=== PATIENT | female | born 1940 | race Caucasian/White ===

== ENCOUNTER 2022-06-24 23:01 | Inpatient (IN) | payer MEDICARE, SELFPAY ==
[2022-06-24 23:06] VITALS: BP 191/93; PULSE 73; RESP 16; TEMP 37; O2SAT 98; BMI 21.9
--- NOTE | 2022-06-24 23:16 | CRLHL7_ITS ---
For Patients: As a result of the Century Cures Act, medical imaging exams and procedure reports are released immediately into your electronic medical record. You may view this report before your referring provider. If you have questions, please contact your health care provider. INDICATION: Arm chest pain TECHNIQUE: Chest radiograph 2 views COMPARISON: 05/21/2019 FINDINGS: Mediastinum: The mediastinum is normal in appearance. The heart silhouette is normal in size and morphology. The patient is status post coronary artery bypass surgery. Lung: Both lungs are unremarkable in appearance. Bilateral prominent nipple silhouettes are present. No sign of pleural effusion seen. No pneumothorax is identified. Bone and Soft tissue: Unremarkable for age. IMPRESSION: 1. No acute cardiopulmonary disease is seen. Dictated by: Miguel Carrington MD @ 06/24/2022 23:57:07 (Electronically Signed)
[2022-06-24 23:23] LABS: Troponin, Point-of-Care* 0.03 ng/ml (0.01-0.04)
[2022-06-24 23:32] LABS: Basophils Absolute Auto 0.04 K/uL (0.00-0.30); Basophils Percent Auto 0.6 % (0.0-3.0); Eosinophils Absolute Auto 0.45 K/uL (0.00-0.50); Eosinophils Percent Auto 6.2 % (0.0-7.0); Hematocrit 41.4 % (33.0-51.0); Hemoglobin* 13.4 gm/dL (12.0-16.0); Immature Granulocytes Abs Auto 0.01 K/uL (0.00-0.30); Lymphocytes Absolute Auto 3.18 K/uL (0.90-2.90); Lymphocytes Percent Auto 43.8 % (20-44); Mean Corpuscular HGB Conc 32 gm/dL (32-36); Mean Corpuscular Hemoglobin 31 pg (26-34); Mean Corpuscular Volume 96 fL (80-100); Monocytes Percent Auto 11.8 % (0.0-11.0); Neutrophils Percent Auto 37.5 % (42.0-72.0); Platelet Count* 198 K/uL (140-440); Red Blood Count 4.32 m/uL (4.00-5.20); White Blood Count* 7.26 K/uL (4.50-11.00)
[2022-06-24 23:33] LABS: Slide Review Reflex No
[2022-06-24 23:36] LABS: Chloride* 108 mmol/L (96-114); Sodium* 140 mmol/L (135-149)
[2022-06-24 23:38] LABS: Creatinine* 0.8 mg/dL (0.5-1.5); Estimated Glomerular Filt Rate 74 ml/min; INR 0.89 (0.91-1.10); Prothrombin Time 12.5 Seconds
[2022-06-24 23:39] LABS: Blood Urea Nitrogen* 22 mg/dL (7-30); Calcium* 9.6 mg/dL (8.4-10.6); Carbon Dioxide* 27 mmol/L (20-32); Glucose* 108 mg/dL (60-115); Partial Thromboplastin Time* 31 Seconds (23-33)
[2022-06-24 23:41] LABS: D Dimer Quantitative* 0.66 ug/ml (0.00-0.50)
[2022-06-24 23:48] LABS: NT Pro B Type NatriureticPept* 174 PG/mL (0-450)
[2022-06-25] VITALS (20 sets, daily range): BP systolic 133–185; BP diastolic 65–91; PULSE 56–73; RESP 16–20; TEMP 36.5–36.8; O2SAT 94–100; BMI 21.8
[2022-06-25 00:06] LABS: Troponin I* 0.04 ng/mL (0.01-0.04)
[2022-06-25] MEDS: NITROGLYCERIN 0.4 MG TAB.SUBL SUBLINGUAL (00:08)
[2022-06-25 00:18] LABS: SARS PCR* Negative SARS-CoV-2 (Negative)
--- NOTE | 2022-06-25 00:44 | ED_ITS ---
HPI - Chest Pain General Date Seen: 06/24/22 Chief Complaint: Extremity Pain/Injury, Upper Stated Complaint: possible heart attach Time Seen by Provider: 06/24/22 23:04 Source: patient and family Mode of arrival: ambulatory Limitations: no limitations History of Present Illness HPI narrative: Patient is 81-year-old female presents for evaluation of left arm pain. She says is characteristic of her previous issue that she had with her myocardial infarction and also post bypass surgery. She has had this now for approximately 6 weeks, whenever she walks on the treadmill the left arm pain worsens. She does not have any shortness of breath or any chest pain or any neck discomfort there is no other radiation. She has not taken any nitroglycerin as continue to take her aspirin. She underwent 3 vessel bypass of her coronary arteries I believe in 2000. Denies any nausea vomiting chest pain shortness of breath or leg swelling. She has however have decreased exercise tolerance he is only able to walk 6 minutes on her treadmill. MD complaint: other Pertinent past history: coronary artery disease, prior AR and CABG Onset (ago): week(s) Timing of current episode: constant Prior episodes: Yes Onset: during rest Pain radiation: left arm Severity: moderate Relieving factors: nothing Exacerbating factors: nothing Context: recent illness Related Data On Oral Contraceptives: No Home Medications Medication Instructions Recorded Confirmed alendronate 70 mg tablet mg PO 06/24/22 aspirin 325 mg capsule 325 mg PO Q4-6H PRN 06/24/22 06/24/22 aspirin 81 mg capsule 81 mg PO DAILY 06/24/22 06/24/22 atorvastatin 80 mg tablet mg 06/24/22 isosorbide mononitrate 120 mg mg PO 06/24/22 tablet,extended release 24 hr lisinopril 20 mg tablet mg 06/24/22 metoprolol succinate 25 mg mg PO 06/24/22 tablet,extended release 24 hr omeprazole 20 mg capsule,delayed mg 06/24/22 release Allergies Allergy/AdvReac Type Severity Reaction Status Date / Time No Known Drug Allergies Allergy Verified 06/24/22 23:14 Review of Systems Status of ROS Reports: 10 or more systems reviewed and unremarkable except as noted in History and below PFSH PFSH Social History Smoking Status: Never smoker How often do you have a drink containing alcohol: never AUDIT-C Alcohol total score: 0 Non-prescribed substance use: denies use Exam Narrative Exam Narrative: Patient appears to be in no apparent distress sitting in the room. Stable room 1. Pupils equal round react to light there is no scratch redness TMs normal oropharynx normal she is speaking to me normally. Her neck is supple full range of motion chest shows good air entry bilateral with no wheezing crackles noted scar from previous CABG is noted. Heart sounds no clicks murmurs or gallops abdomen soft there is no guarding approximately rashes she was all extremities independently well no evidence of any Const Vital Signs, click to edit/add: Vital Signs - 24 hr 06/24/22 23:06 06/25/22 00:00 06/25/22 00:10 Temperature 98.6 F Pulse Rate [Apical] 73 62 62 Respiratory Rate 16 16 18 Blood Pressure [Right Upper Arm] 191/93 H 166/91 H 174/91 H Pulse Oximetry 98 98 98 06/25/22 00:20 06/25/22 00:25 06/25/22 00:30 Temperature Pulse Rate [Apical] 68 68 62 Respiratory Rate 18 16 16 Blood Pressure [Right Upper Arm] 138/86 139/77 150/83 H Pulse Oximetry 98 100 100 Course Vital Signs Vital signs: Initial Vital Signs Temperature 98.6 F 06/24/22 23:06 Temperature Source Temporal Artery Scan 06/24/22 23:06 Pulse Rate 73 06/24/22 23:06 Respiratory Rate 16 06/24/22 23:06 Blood Pressure 191/93 H 06/24/22 23:06 Blood Pressure Mean 125 06/24/22 23:06 Blood Pressure Position Supine 06/24/22 23:06 Pulse Oximetry 98 06/24/22 23:06 Oxygen Delivery Method 06/24/22 23:06 Vital Signs Temperature 98.6 F 06/24/22 23:06 Pulse Rate 73 06/24/22 23:06 Respiratory Rate 16 06/24/22 23:06 Blood Pressure 191/93 H 06/24/22 23:06 Pulse Oximetry 98 06/24/22 23:06 Temperature 98.6 F 06/24/22 23:06 Pulse Rate 62 06/25/22 00:30 Respiratory Rate 16 06/25/22 00:30 Blood Pressure 150/83 H 06/25/22 00:30 Pulse Oximetry 100 06/25/22 00:30 MDM - Chest Pain MDM Narrative Medical decision making narrative: This is but I would describe his atypical chest pain, we will do workup for this. During the evaluation of this patient I considered multiple differential diagnosis is. The life-threatening differential diagnosis include coronary disease/AR, pulmonary embolism, pneumothorax, pneumonia, and aortic dissection. Other differential diagnosis included but were not limited to pericarditis, myocarditis, chest wall pain, GERD, esophageal rupture, rib fracture contusion, pleurisy, as well as other etiologies. I will sign over to my partner Dr. Livingston out for further disposition. Medical Records Data Attestation: I reviewed the patient's medical records. Lab Data Attestation: I reviewed the patient's lab results. Labs: Lab Results 06/24/22 06/24/22 06/24/22 Range/Units 23:11 23:11 23:11 WBC 7.26 (4.50-11.00) K/uL RBC 4.32 (4.00-5.20) m/uL Hgb 13.4 (12.0-16.0) gm/dL Hct 41.4 (33.0-51.0) % MCV 96 (80-100) fL MCH 31 (26-34) pg MCHC 32 (32-36) gm/dL RDW Coeff of Ian 14.0 (11.5-15.5) % Plt Count 198 (140-440) K/uL Neut % (Auto) 37.5 L (42.0-72.0) % Lymph % (Auto) 43.8 (20-44) % [place] % (Auto) 11.8 H (0.0-11.0) % Eos % (Auto) 6.2 (0.0-7.0) % Baso % (Auto) 0.6 (0.0-3.0) % Neut # (Auto) 2.70 (1.7-7.0) K/uL Lymph # (Auto) 3.18 H (0.90-2.90) K/uL [place] # (Auto) 0.90 (0.00-0.90) K/UL Eos # (Auto) 0.45 (0.00-0.50) K/uL Baso # (Auto) 0.04 (0.00-0.30) K/uL Abs Immat Gran (auto) 0.01 (0.00-0.30) K/uL INR 0.89 L (0.91-1.10) APTT 31 (23-33) Seconds D-Dimer Quant (PE/DVT) 0.66 H (0.00-0.50) ug/ml Sodium 140 (135-149) mmol/L Potassium 4.0 (3.6-5.1) mmol/L Chloride 108 (96-114) mmol/L Carbon Dioxide 27 (20-32) mmol/L BUN 22 (7-30) mg/dL Creatinine 0.8 (0.5-1.5) mg/dL Estimated Creat Clear 34.30 Estimated GFR 74 ml/min Glucose 108 (60-115) mg/dL Calcium 9.6 (8.4-10.6) mg/dL Troponin I (0.01-0.04) ng/mL NT-Pro-B Natriuret Pep (0-450) PG/mL SARS-CoV-2 (PCR) (Negative) POC Troponin I (0.01-0.04) ng/ml 06/24/22 06/24/22 06/24/22 Range/Units 23:11 23:11 23:11 WBC (4.50-11.00) K/uL RBC (4.00-5.20) m/uL Hgb (12.0-16.0) gm/dL Hct (33.0-51.0) % MCV (80-100) fL MCH (26-34) pg MCHC (32-36) gm/dL RDW Coeff of Ian (11.5-15.5) % Plt Count (140-440) K/uL Neut % (Auto) (42.0-72.0) % Lymph % (Auto) (20-44) % [place] % (Auto) (0.0-11.0) % Eos % (Auto) (0.0-7.0) % Baso % (Auto) (0.0-3.0) % Neut # (Auto) (1.7-7.0) K/uL Lymph # (Auto) (0.90-2.90) K/uL [place] # (Auto) (0.00-0.90) K/UL Eos # (Auto) (0.00-0.50) K/uL Baso # (Auto) (0.00-0.30) K/uL Abs Immat Gran (auto) (0.00-0.30) K/uL INR (0.91-1.10) APTT (23-33) Seconds D-Dimer Quant (PE/DVT) (0.00-0.50) ug/ml Sodium (135-149) mmol/L Potassium (3.6-5.1) mmol/L Chloride (96-114) mmol/L Carbon Dioxide (20-32) mmol/L BUN (7-30) mg/dL Creatinine (0.5-1.5) mg/dL Estimated Creat Clear Estimated GFR ml/min Glucose (60-115) mg/dL Calcium (8.4-10.6) mg/dL Troponin I 0.04 (0.01-0.04) ng/mL NT-Pro-B Natriuret Pep 174 (0-450) PG/mL SARS-CoV-2 (PCR) (Negative) POC Troponin I 0.03 (0.01-0.04) ng/ml 06/24/22 Range/Units 23:16 WBC (4.50-11.00) K/uL RBC (4.00-5.20) m/uL Hgb (12.0-16.0) gm/dL Hct (33.0-51.0) % MCV (80-100) fL MCH (26-34) pg MCHC (32-36) gm/dL RDW Coeff of Ian (11.5-15.5) % Plt Count (140-440) K/uL Neut % (Auto) (42.0-72.0) % Lymph % (Auto) (20-44) % [place] % (Auto) (0.0-11.0) % Eos % (Auto) (0.0-7.0) % Baso % (Auto) (0.0-3.0) % Neut # (Auto) (1.7-7.0) K/uL Lymph # (Auto) (0.90-2.90) K/uL [place] # (Auto) (0.00-0.90) K/UL Eos # (Auto) (0.00-0.50) K/uL Baso # (Auto) (0.00-0.30) K/uL Abs Immat Gran (auto) (0.00-0.30) K/uL INR (0.91-1.10) APTT (23-33) Seconds D-Dimer Quant (PE/DVT) (0.00-0.50) ug/ml Sodium (135-149) mmol/L Potassium (3.6-5.1) mmol/L Chloride (96-114) mmol/L Carbon Dioxide (20-32) mmol/L BUN (7-30) mg/dL Creatinine (0.5-1.5) mg/dL Estimated Creat Clear Estimated GFR ml/min Glucose (60-115) mg/dL Calcium (8.4-10.6) mg/dL Troponin I (0.01-0.04) ng/mL NT-Pro-B Natriuret Pep (0-450) PG/mL SARS-CoV-2 (PCR) Negative SARS-CoV-2 (Negative) POC Troponin I (0.01-0.04) ng/ml ECG Data Attestation: I personally reviewed and interpreted this ECG as follows: ECG interpretation date: 06/25/22 ECG interpretation time: 00:49 Ischemic changes: other (ST wave depression globally but worse inferior laterally. Bundle-branch block. Part of this is unchanged from previous EKGs.) Discharge Plan Discharge Prescriptions: No Action atorvastatin 80 mg tablet 0RF lisinopril 20 mg tablet 0RF alendronate 70 mg tablet PO 0RF isosorbide mononitrate 120 mg tablet extended release 24 hr PO 0RF omeprazole 20 mg capsule,delayed release(DR/EC) 0RF metoprolol succinate 25 mg tablet extended release 24 hr PO 0RF aspirin 81 mg capsule 81 mg PO DAILY 0RF aspirin 325 mg capsule 325 mg PO Q4-6H PRN0RF Follow Up/Referrals: Carmina Enriquez PA-C [Primary Care Provider] -
[2022-06-25 01:22] LABS: Troponin I* 0.08 ng/mL (0.01-0.04)
[2022-06-25] MEDS: HEPARIN 25,000 UNIT/500 ML BAG 13 UNIT IV (01:59)
[2022-06-25] MEDS: HEPARIN 5,000 UNIT/0.5 ML INJ 3300 UNIT IVP (02:00)
--- NOTE | 2022-06-25 02:38 | ED.NURSE ---
report to Seng CANALES on med surg, pt to be transported to 256
--- NOTE | 2022-06-25 03:37 | PM.IMCN1 ---
Date of Consult Consult date: 06/25/22 Primary Care Provider: Carmina Enriquez PA-C Consult Narrative Reason for consult: Admission support and crsoss coverage services. Narrative: [facility] CONSULTATION NOTE: [facility] contacted by the local/ER provider with a request for consultation for admission support and cross coverage services for this patient. Provider requesting [facility] Hospitalist Sevices: Dr. Gabi Viveros MD. Chief Complaint: Left arm discomfort and generalized weakness with exertion. Reason for Admission: Rule out ACS. HPI or ER Course: This patient is an 81-year-old lady with a history of coronary artery disease with past intervention who presented to the emergency department complaining of left arm pain which feels similar to when she a previous AR. She also has experienced progressive weakness with exertion in the past 6 weeks. She claims no chest pain, no shortness of breath, and no nausea. She states that her past history includes a myocardial infarction and three-vessel CABG in 2000. Aside from an elevated blood pressure, her vital signs were normal range on presentation. She was afebrile. Her bedside assessment was unremarkable. She appeared in no distress. Her lung exam was normal. There was no evidence of person angina after 2 doses of sublingual nitroglycerin were administered, and no signs of CHF were identified. The laboratory survey revealed a normal hemogram. Her blood chemistries were generally unremarkable. However, her troponin I levels were elevated: 0.04, and 0.08 on repeat assessment. A chest x-ray was negative for cardiomegaly, pulmonary vascular congestion, pulmonary edema, and acute alveolar infiltrates. An EKG showed a sinus rhythm with a right bundle branch block and ST segment depression in inferolateral leads. The case was reviewed with cardiology on-call for this facility. The living coach concurred with the ER provider's assessment that this was an acutely evolving coronary syndrome. IV heparin and as needed nitroglycerin was recommended. It was further recommended that the patient needed to be transferred to a facility with a higher level of care including interventional cardiology and cardiovascular surgery. At this point the local providers are attempting to find a facility at the level of care needed, however, bed space is at unavailable. Transfer will be made soon as possible when bed space opens up. Pertinent PMH: Discussed in the provider's admission note. History Reviewed In The Medical Record: Home Medications. Pertinent Social History. Recent OPD/ER Progress Notes. EXAM: Performed via an interactive video with the assistance of the bedside nurse. The Bedside RN is Seng. VS: T 98. P 62. RR 16. BP 150/83. SPO2 100% on room air. GENERAL APPEARANCE: The patient is awake, alert and oriented x4. She does not appear distressed. She is able to follow commands and carry on a conversation. She claims no pain at this time. HEENT: Facial features are symmetric. Pupils are equally round and reactive to light. Mucous membranes are moist and pink. Oropharynx is clear. NECK: Supple. No JVD is seen. CHEST: Atraumatic. Normal respiratory movement seen. LUNGS: CTA, bilaterally. Breath sounds are heard in all lung block. HEART: Regular rhythm and rate. No murmurs are heard. No rub is heard. S2 is widely split. ABDOMEN: Bowel sounds are present. Soft. Nontender. EXTREMITIES: Trace edema is noted in the distal lower legs, bilaterally. Pulses are palpable in 4 extremities. SKIN: No discoloration seen. No rashes or primary skin lesions seen. NEUROLOGICAL: Alert and oriented x4. Cranial nerves II through XII are functioning normally. There is normal volitional movement in all 4 extremities without signs of lateralized weakness. No tremors are seen. No myoclonus is seen. LAB Data: Reviewed. EKG: Reviewed RADIOLOGY REPORTS: Reviewed. ASSESSMENT: 1. Acute coronary syndrome. 2. Atypical angina with primarily left arm pain, and generalized weakness with exertion. The patient's left arm pain was resolved with 2 doses of sublingual nitroglycerin. 3. History of coronary artery disease with a prior AR and past intervention (three-vessel CABG) 4. Other PMH: HTN; GERD; WILLA. PLANS: [facility] during this [facility]. 2. Continue heparin infusion. 3. Cardiology consultation soon as possible. 4. As needed sublingual nitroglycerin as needed for angina or anginal equivalent symptoms. 5. N.p.o. status until seen by cardiology. RECOMMENDATIONS: 1. Nitroglycerin infusion if the patient redevelops chest pain with persistence. 2. Continue beta-ricco therapy. 3. Antiplatelet therapy as recommended by cardiology I have reviewed the case in consultation. Information has been gathered from conversations with the local provider, nelson review of the patient's chart, and by a patient evaluation. Based on the current information and the patient?s current medical condition, I certify the patient meets criteria for: [XXX] Acute inpatient status with the expectation of a patient stay of more than 2 midnights, but less than 96 hrs. [ ] Swing bed. [ ] Observation status with an expected stay of less than 2 midnights. Thank you for including [facility] Hospitalist in the patient's care. This service is available for further assistance as requested by your care team by calling [phone]. [facility] Medical History (Updated 06/25/22 @ 03:18 by Gabi Baker MD) Acute myocardial infarction GERD (gastroesophageal reflux disease) Hypertension Osteoarthritis Surgical History (Updated 06/25/22 @ 00:52 by Gabi Baker MD) History of hysterectomy Hx of CABG Tubal ligation status Social History Highest level of school completed/degree received: high school graduate Smoking Status: Never smoker Second hand tobacco smoke exposure: No How often do you have a drink containing alcohol: never AUDIT-C Alcohol total score: 0 Non-prescribed substance use: denies use Caffeine: Yes (2 Cups Daily) service: No Meds Home Medications and Allergies Home Medications Medication Instructions Recorded Confirmed Type alendronate 70 mg tablet mg PO 06/24/22 History aspirin 325 mg capsule 325 mg PO Q4-6H PRN 06/24/22 06/24/22 History aspirin 81 mg capsule 81 mg PO DAILY 06/24/22 06/24/22 History atorvastatin 80 mg tablet mg 06/24/22 History isosorbide mononitrate 120 mg mg PO 06/24/22 History tablet,extended release 24 hr lisinopril 20 mg tablet mg 06/24/22 History metoprolol succinate 25 mg mg PO 06/24/22 History tablet,extended release 24 hr omeprazole 20 mg capsule,delayed mg 06/24/22 History release Allergies Allergy/AdvReac Type Severity Reaction Status Date / Time No Known Drug Allergies Allergy Verified 06/24/22 23:14 Exam Const: Vital Signs, click to edit/add: Vital Signs - 24 hr 06/24/22 23:06 06/25/22 00:00 06/25/22 00:10 Temperature 98.6 F Pulse Rate [Apical ] 73 62 62 Respiratory Rate 16 16 18 Blood Pressure [Ri ght Upper Arm] 191/93 H 166/91 H 174/91 H Pulse Oximetry 98 98 98 06/25/22 00:20 06/25/22 00:25 06/25/22 00:30 Temperature Pulse Rate [Apical ] 68 68 62 Respiratory Rate 18 16 16 Blood Pressure [Ri ght Upper Arm] 138/86 139/77 150/83 H Pulse Oximetry 98 100 100 06/25/22 01:00 06/25/22 01:30 06/25/22 02:00 Temperature Pulse Rate [Apical ] 64 65 71 Respiratory Rate 16 16 16 Blood Pressure [Ri ght Upper Arm] 159/79 H 175/74 H 185/80 H Pulse Oximetry 100 98 98 06/25/22 02:30 Temperature Pulse Rate [Apical ] 66 Respiratory Rate 16 Blood Pressure [Ri ght Upper Arm] 178/89 H Pulse Oximetry 98 Labs Labs: Short CBC 06/24/22 Range/Units 23:11 WBC 7.26 (4.50-11.00) K/uL Hgb 13.4 (12.0-16.0) gm/dL Hct 41.4 (33.0-51.0) % Plt Count 198 (140-440) K/uL BMP 06/24/22 23:11 Sodium 140 Potassium 4.0 Chloride 108 Carbon Dioxide 27 BUN 22 Creatinine 0.8 Glucose 108 Calcium 9.6 Cardiac Enzymes 06/24/22 06/25/22 Range/Units 23:11 00:40 Troponin I 0.04 0.08 H* (0.01-0.04) ng/mL Assessment and Plan Assessment and plan (1) Angina pectoris, unstable: Status: Acute (2) Elevated troponin: Status: Acute Plan See Above..
--- NOTE | 2022-06-25 04:36 | PC.NURSE ---
Admitted to room 256 at 0245. VSS RA. Denies pain. Tele SB. Up ad elvi rob well. Ind w/cares. NPO.
[2022-06-25 08:24] LABS: HCO3 VBG 28 mmol/L (21-28); Lactate* 1.1 mmol/L (0.5-1.9); PCO2 VBG 47 mmHG (40-50); pH VBG 7.387 (7.32-7.43)
[2022-06-25 08:28] LABS: Hematocrit 43.7 % (33.0-51.0); Hemoglobin* 14.2 gm/dL (12.0-16.0); Mean Corpuscular HGB Conc 33 gm/dL (32-36); Mean Corpuscular Hemoglobin 31 pg (26-34); Mean Corpuscular Volume 96 fL (80-100); Platelet Count* 186 K/uL (140-440); Red Blood Count 4.57 m/uL (4.00-5.20); White Blood Count* 6.89 K/uL (4.50-11.00)
[2022-06-25 08:33] LABS: Slide Review Reflex No
[2022-06-25 08:47] LABS: INR 0.97 (0.91-1.10); Prothrombin Time 13.3 Seconds
[2022-06-25 08:50] LABS: D Dimer Quantitative* 0.63 ug/ml (0.00-0.50)
[2022-06-25 08:57] LABS: Chloride* 111 mmol/L (96-114); Potassium* 4.3 mmol/L (3.6-5.1); Sodium* 143 mmol/L (135-149)
[2022-06-25 08:59] LABS: Creatinine* 0.7 mg/dL (0.5-1.5); Estimated Glomerular Filt Rate 86 ml/min
[2022-06-25 09:00] LABS: Blood Urea Nitrogen* 15 mg/dL (7-30); Carbon Dioxide* 27 mmol/L (20-32); Glucose* 98 mg/dL (60-115)
[2022-06-25 09:01] LABS: Calcium* 9.6 mg/dL (8.4-10.6)
[2022-06-25 09:08] LABS: NT Pro B Type NatriureticPept* 453 PG/mL (0-450)
[2022-06-25 09:13] LABS: C Reactive Protein* < 0.5 mg/dL (0.5-1.0); Troponin I* 0.46 ng/mL (0.01-0.04)
--- NOTE | 2022-06-25 09:21 | PC.NURSE ---
LAB CALLED WITH CRITICAL TROPONIN 0.46. DR. GILMORE AWARE.
--- NOTE | 2022-06-25 09:25 | PC.NURSE ---
PTT 167 per Sandra in Lab
[2022-06-25 09:27] LABS: Partial Thromboplastin Time* 167 Seconds (23-33)
--- NOTE | 2022-06-25 13:26 | PC.NURSE ---
Pt trop increased to 0.46, Dr. Lindsay aware. [place] [facility], [place] [facility] [place] others on [place] list. Bed in available at [facility] on , [place], [place]. Report called to Julia at [facility] at [phone]. Pt is going to Bed 206 on telemetry unit. Awaiting EMS transport at 1330. Pt is transferring for [facility] needs a lab engineer per cardiology according to Dr. Lindsay.
--- NOTE | 2022-06-25 14:47 | PC.NURSE ---
Called [facility] to inform them of pt leaving [place] about [address] Pt will need PTT at admission. Message given to Brynn.
--- NOTE | 2022-06-25 17:59 | P.IMHP_ITS ---
Hospitalist- H&P: HPI History of Present Illness Date Seen: 06/25/22 Chief complaint: possible heart attach Narrative: ADMISSION HISTORY AND PHYSICAL - HOSPITALIST -WITH SUBSEQUENT TRANSFER TO TERTIARY CARE FACILITY SEVERAL HOURS LATER CHIEF COMPLAINT: Left arm pain HPI: This is an 81-year-old with known coronary artery disease. This includes known right bundle branch block, 3 vessel CABG in 1989, PTCA in 1999 and 2010. She has been doing fairly well over the last several years. She was in her usual state of health, living independently and walking daily until the last several weeks. She is noted with her walk that she is getting progressive worsening of a left arm pain. It became in the last couple of weeks more acute and she has been less active and ability to walk has decreased. She did not connect this to angina. She thought she had arthritis or a clogged vein in her arm. In the ED she presented with this left arm pain. There was a mild bump in her troponin and more significantly noted ST depression in the lateral leads with her known right bundle branch block. Non-STEMI was diagnosed and she was supposed to transfer but there were no beds available. She was admitted to our floor for further management. [facility] Medical History?(Updated 06/25/22 @ 03:18 by Gabi Baker MD) Coronary artery disease, status post PTCA and 3 vessel CABG over the last 30 years Acute myocardial infarction 2010 GERD (gastroesophageal reflux disease) Hypertension Osteoarthritis Surgical History?(Updated 06/25/22 @ 00:52 by Gabi Baker MD) History of hysterectomy Hx of CABG Tubal ligation status Social History? Highest level of school completed/degree received:? high school graduate Smoking Status:? Never smoker Second hand tobacco smoke exposure:? No How often do you have a drink containing alcohol:? never AUDIT-C Alcohol total score:? 0 Non-prescribed substance use:? denies use Caffeine:? Yes (2 Cups Daily) service:? No Meds Home Medications and Allergies Home Medications ?Medication ?Instructions ?Recorded ?Confirmed ?Type alendronate 70 mg tablet mg PO 06/24/22 ? History aspirin 325 mg capsule 325 mg PO Q4-6H PRN 06/24/22 06/24/22 History aspirin 81 mg capsule 81 mg PO DAILY 06/24/22 06/24/22 History atorvastatin 80 mg tablet mg 06/24/22 ? History isosorbide mononitrate 120 mg mg PO 06/24/22 ? History tablet,extended release 24 hr ? lisinopril 20 mg tablet mg 06/24/22 ? History metoprolol succinate 25 mg mg PO 06/24/22 ? History tablet,extended release 24 hr ? omeprazole 20 mg capsule,delayed mg 06/24/22 ? History release ? FAMILY HISTORY: REVIEWED IN EMR HABITS: As above SOCIAL HISTORY: Lives alone, INVESTIGATIONS: LABS/MICRO/ECG/IMAGING Troponin serially was elevated: 0.04, 0.08, 0.48 Heparin drip per protocol was initiated Sublingual nitroglycerin given x1 Morphine given in the ED REVIEW OF SYSTEMS: 12-POINT ROS COMPLETED WITH PATIENT AND NEGATIVE UNLESS OTHERWISE STATED IN HPI OR BELOW. PHYSICAL EXAM: CODE STATUS: CONSTITUTIONAL: CONVERSIVE, GOOD HISTORIAN. A/O. KNOWS SETTING AND CONTEXT. VITAL SIGNS: SEE RECORD. HEENT: NORMOCEPHALIC, ATRAUMATIC. PERRL, EOMI, CONJUNCTIVAE PINK, NO SCLERAL ICTERUS. EARS AND NOSE EXTERNALLY NORMAL. PHARYNX NORMAL. NECK: NO JVD. NO CAROTID BRUIT, NO THYROMEGALY, NO ADENOPATHY. CHEST: CLEAR TO AUSCULTATION BILATERALLY HEART: S1 AND S2 NORMAL. NO HARSH MURMURS. EDEMA negligible MUSCULOSKELETAL: NO GROSS JOINT DEFORMITY OR SWELLING. NEURO: CRANIAL NERVES INTACT. GROSSLY INTACT. NO ASYMMETRIC FINDINGS. SKIN: NO RASHES, PETECHIAE, CONCERNING CHANGES PSYCHIATRIC: Euthymic ADMIT DVT: Heparin drip GI: NPO TIME SPENT: 70 MINUTES EXAMINING PATIENT, CONFERRING WITH FAMILY AND PATIENT, CARE STAFF, DEVELOPING CARE PLAN - discussing case with several cardiologists the area. Ultimately Dr. White with [facility] accepted her transferred here on 06/25 at approximately 1:30 p.m. [facility] Medical History (Updated 06/25/22 @ 18:06 by Radha Lindsay MD) Acute myocardial infarction GERD (gastroesophageal reflux disease) Hypertension Osteoarthritis Surgical History (Updated 06/25/22 @ 00:52 by Gabi Baker MD) History of hysterectomy Hx of CABG Tubal ligation status Social History Highest level of school completed/degree received: high school graduate Smoking Status: Never smoker Second hand tobacco smoke exposure: No How often do you have a drink containing alcohol: never AUDIT-C Alcohol total score: 0 Non-prescribed substance use: denies use Caffeine: Yes (2 Cups Daily) service: No Meds Home Medications and Allergies Home Medications Medication Instructions Recorded Confirmed Type alendronate 70 mg tablet 70 mg PO Q7D 06/24/22 06/25/22 History aspirin 325 mg capsule 325 mg PO Q4-6H PRN 06/24/22 06/24/22 History aspirin 81 mg capsule 81 mg PO DAILY 06/24/22 06/24/22 History atorvastatin 80 mg tablet 80 mg PO HS 06/24/22 06/25/22 History isosorbide mononitrate 120 mg 120 mg PO DAILY 06/24/22 06/25/22 History tablet,extended release 24 hr lisinopril 20 mg tablet 20 mg PO DAILY 06/24/22 06/25/22 History metoprolol succinate 25 mg 25 mg PO DAILY 06/24/22 06/25/22 History tablet,extended release 24 hr omeprazole 20 mg capsule,delayed 20 mg PO DAILY 06/24/22 06/25/22 History release Allergies Allergy/AdvReac Type Severity Reaction Status Date / Time No Known Drug Allergies Allergy Verified 06/24/22 23:14 Exam Const: Vital Signs, click to edit/add: Vital Signs - 24 hr 06/24/22 23:06 06/25/22 00:00 06/25/22 00:10 Temperature 98.6 F Pulse Rate Pulse Rate [Apical ] 73 62 62 Pulse Rate [Left R adial] Respiratory Rate 16 16 18 Blood Pressure [Le ft Arm] Blood Pressure [Ri ght Upper Arm] 191/93 H 166/91 H 174/91 H Pulse Oximetry 98 98 98 06/25/22 00:20 06/25/22 00:25 06/25/22 00:30 Temperature Pulse Rate Pulse Rate [Apical ] 68 68 62 Pulse Rate [Left R adial] Respiratory Rate 18 16 16 Blood Pressure [Le ft Arm] Blood Pressure [Ri ght Upper Arm] 138/86 139/77 150/83 H Pulse Oximetry 98 100 100 06/25/22 01:00 06/25/22 01:30 06/25/22 02:00 Temperature Pulse Rate Pulse Rate [Apical ] 64 65 71 Pulse Rate [Left R adial] Respiratory Rate 16 16 16 Blood Pressure [Le ft Arm] Blood Pressure [Ri ght Upper Arm] 159/79 H 175/74 H 185/80 H Pulse Oximetry 100 98 98 06/25/22 02:30 06/25/22 03:30 06/25/22 03:40 Temperature Pulse Rate Pulse Rate [Apical ] 66 Pulse Rate [Left R adial] 64 Respiratory Rate 16 16 Blood Pressure [Le ft Arm] 170/78 H Blood Pressure [Ri ght Upper Arm] 178/89 H Pulse Oximetry 98 97 98 06/25/22 04:13 06/25/22 04:15 06/25/22 05:15 Temperature Pulse Rate 63 Pulse Rate [Apical ] Pulse Rate [Left R adial] 62 59 L Respiratory Rate Blood Pressure [Le ft Arm] 144/68 H 133/65 Blood Pressure [Ri ght Upper Arm] Pulse Oximetry 94 06/25/22 06:32 06/25/22 10:26 06/25/22 10:27 Temperature 97.8 F Pulse Rate Pulse Rate [Apical ] Pulse Rate [Left R adial] 62 58 L 58 L Respiratory Rate 18 18 Blood Pressure [Le ft Arm] 147/67 H 145/70 H Blood Pressure [Ri ght Upper Arm] Pulse Oximetry 97 97 06/25/22 10:51 06/25/22 13:06 06/25/22 13:08 Temperature 98.2 F 97.7 F Pulse Rate 73 Pulse Rate [Apical ] Pulse Rate [Left R adial] 56 L 60 Respiratory Rate 20 20 Blood Pressure [Le ft Arm] 156/73 H 140/84 H Blood Pressure [Ri ght Upper Arm] Pulse Oximetry 98 94 Hospitalist - H&P: Result Labs Labs: Short CBC 06/24/22 06/25/22 Range/Units 23:11 08:11 WBC 7.26 6.89 (4.50-11.00) K/uL Hgb 13.4 14.2 (12.0-16.0) gm/dL Hct 41.4 43.7 (33.0-51.0) % Plt Count 198 186 (140-440) K/uL BMP 06/24/22 06/25/22 23:11 08:11 Sodium 140 143 Potassium 4.0 4.3 Chloride 108 111 Carbon Dioxide BUN 22 15 Creatinine 0.8 0.7 Glucose 108 98 Calcium 9.6 9.6 Cardiac Enzymes 06/24/22 06/25/22 06/25/22 Range/Units 23:11 00:40 08:11 Troponin I 0.04 0.08 H* 0.46 H* (0.01-0.04) ng/mL Assessment and Plan Assessment and plan (1) Non-STEMI (non-ST elevated myocardial infarction): Status: Acute Assessment and Plan: Patient was on our service from early hours of 06/25 daily afternoon of 06/25. I maintained her on a heparin drip. She needed no further nitroglycerin after the ER dose. She is pain-free. Her ST depression had resolved. I did not exercise her. I did not give her Plavix. Continued her aspirin. She was transferred by EMS to [place] in the afternoon.
== END 2022-06-25 14:20 | disposition other institution (70) | DRG 282 ==
LOC: ED 06-25 00:53 → MEDSURG 06-25 02:47
PROVIDERS: Family Medicine; Admitting Provider Family Medicine; Emergency Provider Family Medicine; PCP Physician Assistant Medical; Visit Provider Family Medicine
DX: I21.4 Non-ST elevation (NSTEMI) myocardial infarction (principal); I25.110 Atherosclerotic heart disease of native coronary artery with unstable angina pectoris; I10 Essential (primary) hypertension; K21.9 Gastro-esophageal reflux disease without esophagitis; Z95.1 Presence of aortocoronary bypass graft; G47.33 Obstructive sleep apnea (adult) (pediatric); I45.10 Unspecified right bundle-branch block; I25.2 Old myocardial infarction
CPT/HCPCS: 36415; 71046; 80048; 82803; 83605; 83880; 84443; 84484; 85025; 85027; 85379; 85610; 85730; 86140; 87502; 87634; 87635; 93005; 99284; 99285; A9270; J1644

== ENCOUNTER 2022-06-25 13:54 | Outpatient (CLI) | payer MEDICARE, SELFPAY | END 2022-06-25 13:55 | disposition home or self-care (01) | LOC: AMB 07-15 12:01 | PROVIDERS: PCP Physician Assistant Medical; Visit Provider Family Medicine | DX: I21.4 Non-ST elevation (NSTEMI) myocardial infarction (principal) | CPT/HCPCS: A0425; A0434 ==

== ENCOUNTER 2022-11-17 19:28 | Observation (INO) | payer MEDICARE, SELFPAY ==
[2022-11-17 19:45] VITALS: BP 103/47; PULSE 67; RESP 16; TEMP 36.3; O2SAT 96; BMI 21.7
--- NOTE | 2022-11-17 19:59 | CRLHL7_ITS ---
For Patients: As a result of the Century Cures Act, medical imaging exams and procedure reports are released immediately into your electronic medical record. You may view this report before your referring provider. If you have questions, please contact your health care provider. Indication: Fall, left hip pain Technique: Three views Comparison: None Findings: Bones: Fractures of left superior inferior pubic rami with comminution of the inferior pubic ramus. Left superior pubic ramus is displaced 3 millimeters. Additional minimally displaced fracture through the medial margin of the acetabulum. Joint spaces: No dislocation. Soft tissues: Atherosclerosis. Dictated by Jose Rafael Uriarte MD @ 11/17/2022 8:34:51 PM (Electronically Signed)
--- NOTE | 2022-11-17 20:45 | ED.GENADULT ---
HPI - General Adult General Date Seen: 11/17/22 Chief complaint: Hip Injury/Pain Stated complaint: Fall Time Seen by Provider: 11/17/22 19:46 Source: patient History of Present Illness HPI narrative: Patient is an 82-year-old woman who had been standing on the steps at home, she thinks about 4 steps up, she turned too quickly and fell backward. She did hit her head, possibly. She does not remember the fall, but denies any headache, she is not sure whether she hit her head or not. She does not have neck or back pain. She complains primarily of pain in her left hip. There has not been any vomiting. She is not able to walk. She does not take any blood thinners. She does have a history of [place], she has had CABG remotely, and she says she has had 4 heart attacks. Related Data Home Medications Medication Instructions Recorded Confirmed alendronate 70 mg tablet 70 mg PO Q7D 06/24/22 11/17/22 aspirin 325 mg capsule 325 mg PO Q4-6H PRN 06/24/22 06/24/22 aspirin 81 mg capsule 81 mg PO DAILY 06/24/22 11/17/22 atorvastatin 80 mg tablet 80 mg PO HS 06/24/22 11/17/22 isosorbide mononitrate 120 mg 120 mg PO DAILY 06/24/22 11/17/22 tablet,extended release 24 hr lisinopril 20 mg tablet 20 mg PO DAILY 06/24/22 11/17/22 metoprolol succinate 25 mg 25 mg PO DAILY 06/24/22 11/17/22 tablet,extended release 24 hr clopidogrel 75 mg tablet 75 mg PO DAILY 11/17/22 11/17/22 famotidine 20 mg tablet 20 mg PO Q12H 11/17/22 11/17/22 Allergies Allergy/AdvReac Type Severity Reaction Status Date / Time No Known Drug Allergies Allergy Verified 11/17/22 19:49 Review of Systems Status of ROS: Reports: 10 or more systems reviewed and unremarkable except as noted in History and below [facility] Medical History Acute myocardial infarction GERD (gastroesophageal reflux disease) Hypertension Osteoarthritis Surgical History History of hysterectomy Hx of CABG Tubal ligation status Social History Highest level of school completed/degree received: high school graduate Smoking Status: Never smoker Second hand tobacco smoke exposure: No How often do you have a drink containing alcohol: never AUDIT-C Alcohol total score: 0 Non-prescribed substance use: denies use Caffeine: Yes (2 Cups Daily) service: No Exam Narrative: Exam Narrative: Vital signs as noted above. In general, an alert, well-appearing patient. Head: Normocephalic, atraumatic. Eyes: Pupils are equal reactive. Extraocular movements are full. Conjunctivae are normal. ENT: Mucous membranes are moist. Throat is normal. Neck: Supple without lymphadenopathy. Nontender to palpation. Heart: Regular rate and rhythm. No murmur or rub. Lungs: Clear bilaterally. No increased work of breathing, crackles or wheezes. Abdomen: Soft and nontender. No organomegaly. Extremities: Well perfused. No edema. No calf tenderness. Pulses intact. Pain in the hip area with any movement of the left leg. Neurologic: Patient is alert and oriented to person and place. Speech is fluent. Face is symmetric. Moves all extremities equally. Affect: Normal. Skin: Warm and dry. Well perfused. Const: Vital Signs, click to edit/add: Vital Signs - 24 hr 11/17/22 19:45 11/17/22 23:27 11/17/22 23:35 Temperature 97.3 F L Pulse Rate 81 Pulse Rate [Left P ulse Oximeter] 67 Respiratory Rate 16 16 Blood Pressure 101/69 Blood Pressure [Ri ght Upper Arm] 103/47 L Pulse Oximetry 96 99 93 Oxygen Delivery Me thod Room Air 11/18/22 00:01 11/18/22 02:01 11/18/22 04:02 Temperature Pulse Rate 85 81 72 Pulse Rate [Left P ulse Oximeter] Respiratory Rate 18 16 18 Blood Pressure 119/63 100/57 L 95/55 L Blood Pressure [Ri ght Upper Arm] Pulse Oximetry 91 92 91 Oxygen Delivery Me thod 11/18/22 06:01 Temperature Pulse Rate 71 Pulse Rate [Left P ulse Oximeter] Respiratory Rate 16 Blood Pressure 104/58 L Blood Pressure [Ri ght Upper Arm] Pulse Oximetry 93 Oxygen Delivery Me thod Documenting provider has reviewed patient's vital signs: yes Course Course Hospital Course: Following initial evaluation, an IV was placed, she was given 25 mcg of fentanyl. She had x-rays of the left hip and a CT scan of her head. X-rays of the left hip by my review show mildly displaced fractures of the superior and inferior rami as well as an acetabular fracture. Final radiology read is the same. I reviewed this with Dr. Bedoya who does not feel that CT scanning of the hip is needed. Recommends pain control. CT scan of the head by my review shows subdural hematoma on the left, measuring about 6 mm. Final radiology report is as follows: Brain parenchyma and extra-axial spaces: High-density tracking along the posterior falx and left tentorium is compatible with subdural hematoma and measures approximately 5 mm. Nonspecific low attenuation white matter changes consistent with chronic microvascular disease. No sign of mass or midline shift. Skull base and calvarium: The visualized paranasal sinuses and mastoid air cells demonstrate no acute or significant findings. The visualized orbits are grossly unremarkable. No skull fractures. IMPRESSION: Subdural hematoma tracking along the falx and left tentorium. Recommend short interval follow-up in 8-12 hours. In has remained neurologically stable. CT scan of the cervical spine is pending. She has not required further pain medication. I made an initial call to [facility], but they are currently not taking even adult trauma. I did talk with Dr. Mao, who was on-call for Neurosurgery at [facility]. He did not feel from a neuro surgical standpoint that she required transfer, he recommended a repeat CT of her head in 12 hours. Therefore, I think he can reasonably keep her here. We will manage her pelvis fractures with pain control and manage her subdural hematoma with neuro checks and repeat CT imaging. Her Plavix is being held. Currently there are no beds on the floor so she is boarding in the ER. I have ordered her home meds aside from her Plavix and her aspirin which we will hold for now. Baseline labs are pending at this time. Patient will be signed out to Dr. Marrero in the short term while awaiting bed placement. Vital Signs Vital signs: Initial Vital Signs Temperature 97.3 F L 11/17/22 19:45 Temperature Source Temporal Artery Scan 11/17/22 19:45 Pulse Rate 67 11/17/22 19:45 Respiratory Rate 16 11/17/22 19:45 Blood Pressure 103/47 L 11/17/22 19:45 Blood Pressure Mean 65 11/17/22 19:45 Blood Pressure Position Sitting 11/17/22 19:45 Pulse Oximetry 96 11/17/22 19:45 Oxygen Delivery Method 11/17/22 19:45 Vital Signs Temperature 97.3 F L 11/17/22 19:45 Pulse Rate 67 11/17/22 19:45 Respiratory Rate 16 11/17/22 19:45 Blood Pressure 103/47 L 11/17/22 19:45 Pulse Oximetry 96 11/17/22 19:45 Oxygen Delivery Method 11/17/22 19:45 Temperature 97.3 F L 11/17/22 19:45 Pulse Rate 71 11/18/22 06:01 Respiratory Rate 16 11/18/22 06:01 Blood Pressure 104/58 L 11/18/22 06:01 Pulse Oximetry 93 11/18/22 06:01 Oxygen Delivery Method 11/17/22 19:45 Medical Decision Making Lab Data Labs: Lab Results 11/17/22 11/17/22 11/17/22 Range/Units 22:33 22:38 22:38 WBC 12.65 H (4.50-11.00) K/uL RBC 3.83 L (4.00-5.20) m/uL Hgb 11.9 L (12.0-16.0) gm/dL Hct 36.5 (33.0-51.0) % MCV 95 (80-100) fL MCH 31 (26-34) pg MCHC 33 (32-36) gm/dL RDW Coeff of Ian 14.2 (11.5-15.5) % Plt Count 213 (140-440) K/uL Neut % (Auto) 83.7 H (42.0-72.0) % Lymph % (Auto) 7.8 L (20-44) % Taylor % (Auto) 6.6 (0.0-11.0) % Eos % (Auto) 0.7 (0.0-7.0) % Baso % (Auto) 0.3 (0.0-3.0) % Neut # (Auto) 10.60 H (1.7-7.0) K/uL Lymph # (Auto) 1.00 (0.90-2.90) K/uL Taylor # (Auto) 0.80 (0.00-0.90) K/UL Eos # (Auto) 0.10 (0.00-0.50) K/uL Baso # (Auto) 0.00 (0.00-0.30) K/uL INR 0.97 (0.91-1.10) APTT 31 (23-33) Seconds Sodium (135-149) mmol/L Potassium (3.6-5.1) mmol/L Chloride (96-114) mmol/L Carbon Dioxide (20-32) mmol/L BUN (7-30) mg/dL Creatinine (0.5-1.5) mg/dL Estimated Creat Clear Estimated GFR ml/min Glucose (60-115) mg/dL Calcium (8.4-10.6) mg/dL Total Bilirubin (0.1-1.5) mg/dL Direct Bilirubin (0.0-0.5) mg/dL AST (12-35) U/L ALT (4-35) U/L Alkaline Phosphatase (40-150) U/L Total Protein (6.0-8.3) g/dL Albumin (3.3-5.0) g/dL SARS-CoV-2 (PCR) (Negative) Influenza Type A (PCR) (Negative) Influenza Type B (PCR) (Negative) POC Troponin I 0.01 (0.01-0.04) ng/ml 11/17/22 11/17/22 Range/Units 22:38 23:27 WBC (4.50-11.00) K/uL RBC (4.00-5.20) m/uL Hgb (12.0-16.0) gm/dL Hct (33.0-51.0) % MCV (80-100) fL MCH (26-34) pg MCHC (32-36) gm/dL RDW Coeff of Ian (11.5-15.5) % Plt Count (140-440) K/uL Neut % (Auto) (42.0-72.0) % Lymph % (Auto) (20-44) % Taylor % (Auto) (0.0-11.0) % Eos % (Auto) (0.0-7.0) % Baso % (Auto) (0.0-3.0) % Neut # (Auto) (1.7-7.0) K/uL Lymph # (Auto) (0.90-2.90) K/uL Taylor # (Auto) (0.00-0.90) K/UL Eos # (Auto) (0.00-0.50) K/uL Baso # (Auto) (0.00-0.30) K/uL INR (0.91-1.10) APTT (23-33) Seconds Sodium 138 (135-149) mmol/L Potassium 3.6 (3.6-5.1) mmol/L Chloride 108 (96-114) mmol/L Carbon Dioxide 24 (20-32) mmol/L BUN 16 (7-30) mg/dL Creatinine 0.6 (0.5-1.5) mg/dL Estimated Creat Clear 32.17 Estimated GFR 89 ml/min Glucose 108 (60-115) mg/dL Calcium 9.4 (8.4-10.6) mg/dL Total Bilirubin 1.2 (0.1-1.5) mg/dL Direct Bilirubin 0.0 (0.0-0.5) mg/dL AST 39 H (12-35) U/L ALT 27 (4-35) U/L Alkaline Phosphatase 87 (40-150) U/L Total Protein 6.9 (6.0-8.3) g/dL Albumin 3.8 (3.3-5.0) g/dL SARS-CoV-2 (PCR) Negative SARS-CoV-2 (Negative) Influenza Type A (PCR) Negative PCR FLU A (Negative) Influenza Type B (PCR) Negative PCR FLU B (Negative) POC Troponin I (0.01-0.04) ng/ml Discharge Plan Discharge Prescriptions: No Action atorvastatin 80 mg tablet 80 mg PO HS lisinopril 20 mg tablet 20 mg PO DAILY alendronate 70 mg tablet 70 mg PO Q7D isosorbide mononitrate 120 mg tablet extended release 24 hr 120 mg PO DAILY metoprolol succinate 25 mg tablet extended release 24 hr 25 mg PO DAILY aspirin 81 mg capsule 81 mg PO DAILY aspirin 325 mg capsule 325 mg PO Q4-6H PRN clopidogrel 75 mg tablet 75 mg PO DAILY famotidine 20 mg tablet 20 mg PO Q12H Follow Up/Referrals: Carmina Enriquez PA-C [Primary Care Provider] -
--- NOTE | 2022-11-17 20:51 | CRLHL7_ITS ---
For Patients: As a result of the Century Cures Act, medical imaging exams and procedure reports are released immediately into your electronic medical record. You may view this report before your referring provider. If you have questions, please contact your health care provider. INDICATION: Fall. TECHNIQUE: Head CT without contrast. Coronal and sagittal reformats were generated. COMPARISON: CT head from 05/21/2019. FINDINGS: CSF spaces: Within normal limits for age. Brain parenchyma and extra-axial spaces: High-density tracking along the posterior falx and left tentorium is compatible with subdural hematoma and measures approximately 5 mm. Nonspecific low attenuation white matter changes consistent with chronic microvascular disease. No sign of mass or midline shift. Skull base and calvarium: The visualized paranasal sinuses and mastoid air cells demonstrate no acute or significant findings. The visualized orbits are grossly unremarkable. No skull fractures. IMPRESSION: Subdural hematoma tracking along the falx and left tentorium. Recommend short interval follow-up in 8-12 hours. Findings were reported to Dr. Portillo on 11/17/2022 at 10:01 p.m. Please note that all CT scans at this facility use dose modulation, iterative reconstruction, and/or weight-based dosing when appropriate to reduce radiation dose to as low as reasonably achievable. Dictated by Janes Shelton MD @ 11/17/2022 10:02:45 PM (Electronically Signed)
[2022-11-17] MEDS: fentaNYL 100 MCG/2 ML inj 25 MCG IVP (21:01)
--- NOTE | 2022-11-17 22:05 | CRLHL7_ITS ---
For Patients: As a result of the Century Cures Act, medical imaging exams and procedure reports are released immediately into your electronic medical record. You may view this report before your referring provider. If you have questions, please contact your health care provider. INDICATION: Full. TECHNIQUE: CT cervical spine without contrast. COMPARISON: None. FINDINGS: Limited exam the C6-7 and C7-T1 levels are not included in the field of view. Vertebrae: Alignment is normal. There are no fractures or suspicious bony lesions. Discs and facet joints: There are moderate diffuse degenerative changes in the disc spaces and moderate to severe diffuse degenerative changes of the facet joints. Extraspinal findings: Paraspinous soft tissues are unremarkable. Atherosclerotic calcification of the bilateral V4 segments of the vertebral arteries. IMPRESSION: 1. Limited exam since the C6-7 and C7-T1 levels are not included in the field of view. No sign of acute injury in the visualized levels. 2. Moderate-severe multilevel degenerative spondylosis. Please note that all CT scans at this facility use dose modulation, iterative reconstruction, and/or weight-based dosing when appropriate to reduce radiation dose to as low as reasonably achievable. Dictated by Jairo Woodruff MD @ 11/17/2022 11:46:00 PM (Electronically Signed)
[2022-11-17 22:57] LABS: Troponin, Point-of-Care* 0.01 ng/ml (0.01-0.04)
--- NOTE | 2022-11-17 22:57 | ED.NURSE ---
Patient has taken all meds today so does not need any until tomorrow morning. Fosamax takes on Wednesday. Evening medications takes at 1800.
[2022-11-17 23:06] LABS: Basophils Percent Auto 0.3 % (0.0-3.0); Eosinophils Percent Auto 0.7 % (0.0-7.0); Hematocrit 36.5 % (33.0-51.0); Hemoglobin* 11.9 gm/dL (12.0-16.0); Immature Granulocytes Pct Auto 0.9 %; Lymphocytes Percent Auto 7.8 % (20-44); Mean Corpuscular HGB Conc 33 gm/dL (32-36); Mean Corpuscular Hemoglobin 31 pg (26-34); Mean Corpuscular Volume 95 fL (80-100); Monocytes Percent Auto 6.6 % (0.0-11.0); Neutrophils Percent Auto 83.7 % (42.0-72.0); Platelet Count* 213 K/uL (140-440); RDW Coefficient of Variation % 14.2 % (11.5-15.5); Red Blood Count 3.83 m/uL (4.00-5.20); White Blood Count* 12.65 K/uL (4.50-11.00)
[2022-11-17 23:09] LABS: Albumin* 3.8 g/dL (3.3-5.0); Chloride* 108 mmol/L (96-114); Potassium* 3.6 mmol/L (3.6-5.1); Sodium* 138 mmol/L (135-149)
[2022-11-17 23:10] LABS: Slide Review Reflex No
[2022-11-17 23:11] LABS: Carbon Dioxide* 24 mmol/L (20-32); Creatinine* 0.6 mg/dL (0.5-1.5); Est. Creatinine Clearance* 32.17; Estimated Glomerular Filt Rate 89 ml/min
[2022-11-17 23:12] LABS: Alanine Aminotransferase* 27 U/L (4-35); Alkaline Phosphatase* 87 U/L (40-150); Aspartate Amino Transferase* 39 U/L (12-35); Bilirubin Total* 1.2 mg/dL (0.1-1.5); Blood Urea Nitrogen* 16 mg/dL (7-30); Calcium* 9.4 mg/dL (8.4-10.6); Glucose* 108 mg/dL (60-115); INR 0.97 (0.91-1.10); Partial Thromboplastin Time* 31 Seconds (23-33); Prothrombin Time 13.5 Seconds; Total Protein* 6.9 g/dL (6.0-8.3)
[2022-11-17 23:27] VITALS: O2SAT 99
[2022-11-17 23:35] VITALS: BP 101/69; PULSE 81; RESP 16; O2SAT 93
[2022-11-18] VITALS (7 sets, daily range): BP systolic 95–120; BP diastolic 55–63; PULSE 60–85; RESP 16–18; TEMP 37; O2SAT 91–96; BMI 21.7
[2022-11-18 00:19] LABS: PCR FLU A Negative PCR FLU A (Negative); PCR FLU B Negative PCR FLU B (Negative)
[2022-11-18 00:30] LABS: SARS PCR* Negative SARS-CoV-2 (Negative)
--- NOTE | 2022-11-18 02:20 | ED.NURSE ---
pt. able to use bedroom with 1 assist. c/o left hip pain. no pain when at rest.
[2022-11-18] MEDS: OXYCODONE 5 MG TABLET 2.5 MG PO ×2 (02:40→14:35)
--- NOTE | 2022-11-18 08:00 | CRLHL7_ITS ---
For Patients: As a result of the Century Cures Act, medical imaging exams and procedure reports are released immediately into your electronic medical record. You may view this report before your referring provider. If you have questions, please contact your health care provider. INDICATION: Follow-up subdural hematoma COMPARISON: A prior study from November 17, 2022 at 9:31 p.m. TECHNIQUE: CT examination of the head was performed as axial sections without intravenous contrast. Images were obtained from the vertex of the skull through the skull base. This study is from November 18, 2022 at 8:44 a.m. Please note that all CT scans at this facility use dose modulation, iterative reconstruction, and/or weight-based dosing when appropriate to reduce radiation dose to as low as reasonably achievable. FINDINGS: There is cortical and central atrophy. Periventricular white matter changes suggest chronic small vessel ischemia. There is intracranial atherosclerosis. No new calvarial findings. There is a subdural hematoma. This overlies the tentorium on the left extending into the posterior left parafalcine area. Maximum depth is about 5 millimeters and is overall unchanged. A small hyperdense focus is identified which is probably deep within a sulcus near the right parietal angular gyrus. This is seen on coronal image 67, axial image 32 and sagittal image 57 and probably represents a small subarachnoid hemorrhage. This is apparently new since the prior study. No mass effect. No midline shift. IMPRESSION: 1. Subdural hematoma overlying the left tentorium extending into the posterior interhemispheric space, essentially unchanged. Maximum depth is about 5 millimeters. No significant mass effect upon adjacent structures. 2. Small hyperdense focus is identified on the right which is probably a small subarachnoid hemorrhage associated with the right parietal angular gyrus. This is apparently new since the prior study Please note that all CT scans at this facility use dose modulation, iterative reconstruction, and/or weight-based dosing when appropriate to reduce radiation dose to as low as reasonably achievable. Dictated by Kyle Cervantes MD @ 11/18/2022 9:17:30 AM (Electronically Signed)
--- NOTE | 2022-11-18 09:01 | ED.NURSE ---
placed on the bed [place] and voided yellow urine about 150cc of fluids.
--- NOTE | 2022-11-18 10:25 | ED.NURSE ---
given report to Roma Ramsey who will resume care of this patient. Plan to admit to room 247 via cart.
--- NOTE | 2022-11-18 13:18 | PM.IMHP1 ---
Hospitalist- H&P: HPI History of Present Illness Date Seen: 11/18/22 Chief complaint: Fall Narrative: Poly Salgado is a 82 year old female with coronary artery disease admitted to the hospital after a fall at home. Yesterday she was standing in her home. She turned around and fell. She hit her head against an ottoman and landed on her left hip as well. She did not lose consciousness. This was witnessed by her grandson. She was unable to walk due to pain in her left buttock and left groin area. She presents the emergency room for evaluation. In the emergency department she was found to have a small subdural hematoma and a pelvic fracture. They attempted to transfer her to a trauma center but were unsuccessful due to no beds being available. She was kept in the emergency room overnight pending a bed placement here. Repeat head CT scan this morning showed stable 5 mm subdural hematoma on a the left tentorium extending into the posterior left parafalcine area. There is also a hyperdense area in the right parietal angular gyrus area which probably represents a small subarachnoid hemorrhage. This is thought to be new since prior study last evening. Pelvic x-rays show a inferior and superior pubic ramus fractures on the left extending into an acetabular fracture as well. Patient reports feeling fine except for her left hip pain. She is not having a headache. She denies any neurologic symptoms. Review of Systems Narrative: She reports no other health concerns. She has no history of falling. She does not walk with an assistive device. She has not been ill recently. She has had no fever, cough, chest pain, shortness of breath. She had a heart attack in May and underwent repeat coronary stenting at [facility]. Since then she has had no cardiac symptoms. [facility] Medical History (Updated 11/18/22 @ 13:41 by Renny Bach MD) Acute myocardial infarction Coronary artery disease GERD (gastroesophageal reflux disease) Hypertension Left acetabular fracture Osteoarthritis Pelvic ring fracture Subarachnoid hemorrhage Subdural hematoma, acute Surgical History History of hysterectomy Hx of CABG Tubal ligation status Family History (Updated 11/18/22 @ 13:41 by Ed Trammell MD) Father Coronary artery disease Social History (Updated 11/18/22 @ 13:42 by Ed Trammell MD) Narrative: She lives with her daughter and 2 adult grand children. She reports this has been going well for her. She does not use a walker or cane with ambulation. She does not smoke. She does not drink alcohol. Code status is DNR. She reports her daughter or 2 sons would be healthcare power of deputy attorney general Highest level of school completed/degree received: high school graduate Smoking Status: Never smoker Second hand tobacco smoke exposure: No How often do you have a drink containing alcohol: never AUDIT-C Alcohol total score: 0 Non-prescribed substance use: denies use Caffeine: Yes (2 Cups Daily) service: No Meds Home Medications and Allergies Home Medications Medication Instructions Recorded Confirmed Type alendronate 70 mg tablet 70 mg PO Q7D 06/24/22 11/17/22 History aspirin 325 mg capsule 325 mg PO Q4-6H PRN 06/24/22 06/24/22 History aspirin 81 mg capsule 81 mg PO DAILY 06/24/22 11/17/22 History atorvastatin 80 mg tablet 80 mg PO HS 06/24/22 11/17/22 History isosorbide mononitrate 120 mg 120 mg PO DAILY 06/24/22 11/17/22 History tablet,extended release 24 hr lisinopril 20 mg tablet 20 mg PO DAILY 06/24/22 11/17/22 History metoprolol succinate 25 mg 25 mg PO DAILY 06/24/22 11/17/22 History tablet,extended release 24 hr clopidogrel 75 mg tablet 75 mg PO DAILY 11/17/22 11/17/22 History famotidine 20 mg tablet 20 mg PO Q12H 11/17/22 11/17/22 History Allergies Allergy/AdvReac Type Severity Reaction Status Date / Time No Known Drug Allergies Allergy Verified 11/17/22 19:49 Exam Narrative: Exam Narrative: She is alert and appears in no distress. She gives her own history with fairly good detail. Head is without apparent trauma. Palpation over her scalp is nontender. Eyes are normal. Oropharynx normal. No facial asymmetry. Neck is supple without mass or adenopathy. Respirations are clear to auscultation. Cardiovascular: S1, S2, regular rate and rhythm with occasional premature beats. Abdomen: Bowel sounds active. Abdomen is soft without tenderness or mass. She does have tenderness in the left groin/inguinal area. She also has tenderness with palpation over her left greater trochanter and left buttock. No obvious deformity. She has intact pulses and sensation distally. She has no edema. She moves all 4 extremities well. Const: Vital Signs, click to edit/add: Vital Signs - 24 hr 11/17/22 19:45 11/17/22 23:27 11/17/22 23:35 Temperature 97.3 F L Pulse Rate 81 Pulse Rate [Left P ulse Oximeter] 67 Respiratory Rate 16 16 Blood Pressure 101/69 Blood Pressure [Ri ght Upper Arm] 103/47 L Pulse Oximetry 96 99 93 Oxygen Delivery Me thod Room Air 11/18/22 00:01 11/18/22 02:01 11/18/22 04:02 Temperature Pulse Rate 85 81 72 Pulse Rate [Left P ulse Oximeter] Respiratory Rate 18 16 18 Blood Pressure 119/63 100/57 L 95/55 L Blood Pressure [Ri ght Upper Arm] Pulse Oximetry 91 92 91 Oxygen Delivery Me thod 11/18/22 06:01 11/18/22 08:00 11/18/22 10:00 Temperature Pulse Rate 71 Pulse Rate [Left P ulse Oximeter] 69 60 Respiratory Rate 16 16 16 Blood Pressure 104/58 L Blood Pressure [Ri ght Upper Arm] 97/58 L 120/60 Pulse Oximetry 93 92 94 Oxygen Delivery Me thod Room Air Room Air 11/18/22 12:21 Temperature 98.6 F Pulse Rate Pulse Rate [Left P ulse Oximeter] Respiratory Rate 16 Blood Pressure Blood Pressure [Ri ght Upper Arm] Pulse Oximetry 96 Oxygen Delivery Me thod Room Air Documenting provider has reviewed patient's vital signs: yes Hospitalist - H&P: Result Labs Labs: Short CBC 11/17/22 Range/Units 22:38 WBC 12.65 H (4.50-11.00) K/uL Hgb 11.9 L (12.0-16.0) gm/dL Hct 36.5 (33.0-51.0) % Plt Count 213 (140-440) K/uL BMP 11/17/22 22:38 Sodium 138 Potassium 3.6 Chloride 108 Carbon Dioxide 24 BUN 16 Creatinine 0.6 Glucose 108 Calcium 9.4 Liver Function 11/17/22 Range/Units 22:38 Total Bilirubin 1.2 (0.1-1.5) mg/dL Direct Bilirubin 0.0 (0.0-0.5) mg/dL AST 39 H (12-35) U/L ALT 27 (4-35) U/L Alkaline Phosphatase 87 (40-150) U/L Albumin 3.8 (3.3-5.0) g/dL Assessment and Plan Assessment and plan (1) Subarachnoid hemorrhage: Status: Acute (2) Subdural hematoma, acute: Status: Acute (3) Left acetabular fracture: Status: Acute (4) Pelvic ring fracture: Status: Acute Plan At 1:30 p.m. I am working on transferring the patient for neurosurgical care. Trauma hospitals are not accepting transfers. Continue to work on other options for neuro surgical care.
--- NOTE | 2022-11-18 15:08 | REH.OT ---
OT: Orders received, chart reviewed, spoke with nsg and due to new changes on head CT today, pt to transfer to [facility].
--- NOTE | 2022-11-18 16:31 | PC.NURSE ---
VSS AND AFEBRILE. PATIENT TOLERATED REGULAR DIET PRIOR TO TRANSFER. REPORT GIVEN TO CHARGE NURSE AT [facility] IN [place] [facility]. FAMILY PRESENT IN ROOM AT TIME OF TRANSFER. PATIENT TRANSFERRED VIA [facility].
== END 2022-11-18 14:50 | disposition other institution (70) ==
LOC: ED 20:41 → MEDSURG 11-18 10:34
PROVIDERS: Admitting Provider Internal Medicine; Emergency Provider Emergency Medicine; PCP Physician Assistant Medical; Visit Provider Internal Medicine
DX: S06.5X0A Traumatic subdural hemorrhage without loss of consciousness, initial encounter (principal); S32.492A Other specified fracture of left acetabulum, initial encounter for closed fracture; S32.810A Multiple fractures of pelvis with stable disruption of pelvic ring, initial encounter for closed fracture; I25.10 Atherosclerotic heart disease of native coronary artery without angina pectoris; Y92.009 Unspecified place in unspecified non-institutional (private) residence as the place of occurrence of the external cause; W17.89XA Other fall from one level to another, initial encounter; M25.552 Pain in left hip; R26.2 Difficulty in walking, not elsewhere classified; I25.2 Old myocardial infarction; Z95.1 Presence of aortocoronary bypass graft; I10 Essential (primary) hypertension; Z79.82 Long term (current) use of aspirin; K21.9 Gastro-esophageal reflux disease without esophagitis; Z98.51 Tubal ligation status; Z90.710 Acquired absence of both cervix and uterus; M19.90 Unspecified osteoarthritis, unspecified site; Z66 Do not resuscitate
CPT/HCPCS: 36415; 70450; 72125; 73502; 80048; 80076; 84484; 85025; 85610; 85730; 87631; 94761; 96374; 99285; A9270; G0378; J3010

== ENCOUNTER 2022-11-18 14:32 | Outpatient (CLI) | payer MEDICARE, SELFPAY | END 2022-11-18 14:33 | disposition home or self-care (01) | LOC: AMB 11-22 09:48 | PROVIDERS: PCP Physician Assistant Medical; Visit Provider Family Medicine | DX: S32.9XXS Fracture of unspecified parts of lumbosacral spine and pelvis, sequela (principal); S06.6X Traumatic subarachnoid hemorrhage | CPT/HCPCS: A0425; A0426 ==

== ENCOUNTER 2023-03-28 12:06 | Emergency (ER) | payer MEDICARE, SELFPAY ==
[2023-03-28 12:15] VITALS: BP 119/77; PULSE 88; RESP 18; TEMP 37.2; O2SAT 96; BMI 19.8
--- NOTE | 2023-03-28 12:52 | ED.GENADULT ---
HPI - General Adult General Time Seen by Provider: 12:52 Date Seen: 03/28/23 Chief complaint: Diarrhea Stated complaint: Diarrhea for 3 days, pain in arms from elbow down Time Seen by Provider: 03/28/23 12:26 Source: patient, family, RN notes reviewed and old records reviewed Mode of arrival: ambulatory Limitations: no limitations History of Present Illness HPI narrative: Patient is a very pleasant 82-year-old female with a history of known coronary artery disease, status post triple bypass and multiple stent placement as well as recent fall resulting in a subdural hematoma who comes to the emergency room for evaluation regarding diarrhea. Also of note however is persistent arm and low back pain with any activity brought up by her daughter. Poly notes the onset of diarrhea approximately 3 days ago. This has not been associated with any vomiting or nausea but she certainly has not had an appetite and has not been eating or drinking. She denies chills or fever with this. She has not been on any recent antibiotics. She describes the diarrhea as nonbloody but just like water in nature. She notes that she feels like her belly is ?gurgling. She has had a few episodes of incontinence because of this. One week ago she did have children in her home but as far she knows no but he was ill. She denies dizziness chest pain or shortness of breath. Patient's daughter does talk to nursing is concerned regarding persistent arm pain in her mom when she is walking. Poly fell down stairs on November 17 and had a head bleed and pelvic fractures from this. She was hospitalized here for 1 day but then transferred to [facility] facility for evaluation after the head bleed was diagnosed. Since that time she has had persistent arm pain from the elbows down whenever she is ambulating. Initially she attributed this to using the walker and leaning her weight on the walker but this has continued in spite of not using the walker. At rest she has no pain. In addition she has low back pain that is nonradiating. No loss of bowel control. She does not know what x-rays or CT scans were done from her trauma in October. In regards to a past medical history, Poly had 3 way bypass in 1989 with subsequent stents in 1999, 2009 and 2021. She denies shortness of breath today. She denies alcohol or tobacco use. She does not have a cough cold or congestion. Related Data Home Medications Medication Instructions Recorded Confirmed alendronate 70 mg tablet 70 mg PO Q7D 06/24/22 11/17/22 aspirin 325 mg capsule 325 mg PO Q4-6H PRN 06/24/22 06/24/22 aspirin 81 mg capsule 81 mg PO DAILY 06/24/22 11/17/22 atorvastatin 80 mg tablet 80 mg PO HS 06/24/22 11/17/22 isosorbide mononitrate 120 mg 120 mg PO DAILY 06/24/22 11/17/22 tablet,extended release 24 hr lisinopril 20 mg tablet 20 mg PO DAILY 06/24/22 11/17/22 metoprolol succinate 25 mg 25 mg PO DAILY 06/24/22 11/17/22 tablet,extended release 24 hr clopidogrel 75 mg tablet 75 mg PO DAILY 11/17/22 11/17/22 famotidine 20 mg tablet 20 mg PO Q12H 11/17/22 11/17/22 Allergies Allergy/AdvReac Type Severity Reaction Status Date / Time No Known Drug Allergies Allergy Verified 11/17/22 19:49 Review of Systems Status of ROS: Reports: 10 or more systems reviewed and unremarkable except as noted in History and below Const: Denies: fever or chills Eyes: Denies: change in vision ENMT: Denies: throat pain, neck pain, throat swelling or difficulty swallowing Cardio: Denies: chest pain, palpitations, edema, swelling of feet/ankles, lightheadedness, shortness of breath with exertion or shortness of breath when lying down Resp: Denies: shortness of breath or cough GI: Reports: abdominal pain and other (Anorexia); Denies: nausea, vomiting, diarrhea or difficulty swallowing : Reports: decreased urine ouput; Denies: painful urination Musculo: Reports: back pain (Lumbar); Denies: neck pain Neuro: Denies: headache or numbness in extremities Allergy/Immuno: Denies: throat swelling PFSH PFSH Medical History Acute myocardial infarction ?I21.9 - Acute myocardial infarction, unspecified (ICD-10) Coronary artery disease ?I25.10 - Atherosclerotic heart disease of elim [place] coronary artery without angina pectoris (ICD-10) GERD (gastroesophageal reflux disease) ?K21.9 - Gastro-esophageal reflux disease without esophagitis (ICD-10) Hypertension ?I10 - Essential (primary) hypertension (ICD-10) Left acetabular fracture ?S32.402A - Unspecified fracture of left acetabulum, initial encounter for closed fracture (ICD-10) Osteoarthritis ?M19.90 - Unspecified osteoarthritis, unspecified site (ICD-10) Pelvic ring fracture ?S32.810A - Multiple fractures of pelvis with stable disruption of pelvic ring, initial encounter for closed fracture (ICD-10) Subarachnoid hemorrhage ?I60.9 - Nontraumatic subarachnoid hemorrhage, unspecified (ICD-10) Subdural hematoma, acute ?S06.5XAA - Traumatic subdural hemorrhage with loss of consciousness status unknown, initial encounter (ICD-10) Surgical History History of hysterectomy ?Z90.710 - Acquired absence of both cervix and uterus (ICD-10) Hx of CABG ?Z95.1 - Presence of aortocoronary bypass graft (ICD-10) Tubal ligation status ?Z98.51 - Tubal ligation status (ICD-10) Family History Father Coronary artery disease Social History Narrative: She lives with her daughter and 2 adult grand children. She reports this has been going well for her. She does not use a walker or cane with ambulation. She does not smoke. She does not drink alcohol. Code status is DNR. 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 She is very pleasant woman in no acute distress. EOM is full. Face is symmetrical. Oral cavity with moist mucous membranes. Neck is supple without lymphadenopathy. Palpation of cervical spine shows no midline tenderness. Flexion or extension of the cervical spine does not create discomfort in the arms. Palpation down thoracic spine which is kyphotic is without discomfort. Palpation in the lumbar spine is without discomfort Lower extremities without edema. Upper and lower extremity strength is intact. Palpation of the abdomen is soft and nontender. Const: Vital Signs, click to edit/add: Vital Signs - 24 hr 03/28/23 12:15 Temperature 99 F Pulse Rate [Pulse Oximeter] 88 Respiratory Rate 18 Blood Pressure [Ri ght Upper Arm] 119/77 Pulse Oximetry 96 Oxygen Delivery Me thod Room Air Documenting provider has reviewed patient's vital signs: yes Course Course Hospital Course: In terms of the diarrhea differential diagnosis does does include C diff, colitis, viral gastroenteritis. Will place an IV and give 1 L of normal saline and check labs to include CBC, CRP, comprehensive panel, urinalysis. In terms of arm pain differential diagnosis does include musculoskeletal discomfort, neurologic pain from cervical spine, atypical angina, deconditioning. Will check EKG, troponin, x-rays of the cervical spine, chest x-ray and lumbar spine. Reevaluation(s) Reevaluation #1: Patient does feel improved after IV fluids. He reiterates that she does not have any pain while at rest. Vital Signs Vital signs: Initial Vital Signs Temperature 99 F 03/28/23 12:15 Temperature Source Temporal Artery Scan 03/28/23 12:15 Pulse Rate 88 03/28/23 12:15 Respiratory Rate 18 03/28/23 12:15 Blood Pressure 119/77 03/28/23 12:15 Blood Pressure Mean 91 03/28/23 12:15 Pulse Oximetry 96 03/28/23 12:15 Oxygen Delivery Method Room Air 03/28/23 12:15 Vital Signs Temperature 99 F 03/28/23 12:15 Pulse Rate 88 03/28/23 12:15 Respiratory Rate 18 03/28/23 12:15 Blood Pressure 119/77 03/28/23 12:15 Pulse Oximetry 96 03/28/23 12:15 Oxygen Delivery Method Room Air 03/28/23 12:15 Temperature 99 F 03/28/23 12:15 Pulse Rate 88 03/28/23 12:15 Respiratory Rate 18 03/28/23 12:15 Blood Pressure 119/77 03/28/23 12:15 Pulse Oximetry 96 03/28/23 12:15 Oxygen Delivery Method Room Air 03/28/23 12:15 Medical Decision Making MDM Narrative Medical decision making narrative: 1. Diarrhea-laboratory values including a white count, electrolytes, magnesium and LFTs all reassuring. Patient does have slight elevation of CRP to 2.0. Her C diff is negative. Given the fact that she has no pain, reassuring white count and bicarb I do not feel that this is an example of ischemic bowel, diverticulitis or any other life-threatening event at this point. Patient was given IV fluids at a 1 L. she did have some stooling here at the end of her visit at which time we were able to obtain a stool culture as well. Would recommend continued monitoring. She states that she has had diarrhea before but never this bad. Certainly did not witness that she had persistent diarrhea while she is here. Recommend pushing fluids at this time. Recommend against Imodium. Will await the stool culture. Seek medical attention for worsening symptoms, dehydration or the onset of pain or blood in stool. 2. Arm pain-I am concerned that this represents angina. At rest patient has no symptoms. When she is working hard she states she has pain for bilaterally elbow to the wrist. Her cervical spine x-ray does show multilevel degenerative disease but no evidence of a missed fracture from a fall in October of 2022. Patient has 2 sets of negative cardiac enzymes and EKGs that are normal but improved from her cardiac event from May of 2022. Would recommend follow-up with Cardiology or scheduling of outpatient chemical stress test. Patient is advised to do light activity only. She is advised to return to the emergency room for any increasing pain. 3. Low back pain-likely deconditioning. Possibly sacral insufficiency. Patient has no evidence of acute fracture on x-rays. She does note that she had started exercises on her own after her fall and felt much better. She notes the back pain worsened when she stopped doing her exercises. If she does not note improvement she may need an MRI. 4. Disposition-home with her daughter. Return for worsening symptoms and as needed. Medical Records Medical records reviewed: Yes I reviewed the patient's medical records Lab Data Lab results reviewed: Yes I reviewed the patient's lab results Labs: Lab Results 03/28/23 03/28/23 03/28/23 Range/Units 13:00 13:01 14:45 WBC 6.89 (4.50-11.00) K/uL RBC 4.45 (4.00-5.20) m/uL Hgb 13.6 (12.0-16.0) gm/dL Hct 42.8 (33.0-51.0) % MCV 96 (80-100) fL MCH 31 (26-34) pg MCHC 32 (32-36) gm/dL RDW Coeff of Ian 14.4 (11.5-15.5) % Plt Count 182 (140-440) K/uL Neut % (Auto) 62.3 (42.0-72.0) % Lymph % (Auto) 24.1 (20-44) % [place] % (Auto) 9.9 (0.0-11.0) % Eos % (Auto) 3.0 (0.0-7.0) % Baso % (Auto) 0.6 (0.0-3.0) % Neut # (Auto) 4.29 (1.7-7.0) K/uL Lymph # (Auto) 1.66 (0.90-2.90) K/uL [place] # (Auto) 0.70 (0.00-0.90) K/UL Eos # (Auto) 0.21 (0.00-0.50) K/uL Baso # (Auto) 0.04 (0.00-0.30) K/uL Sodium 136 (135-149) mmol/L Potassium 4.3 (3.6-5.1) mmol/L Chloride 106 (96-114) mmol/L Carbon Dioxide 24 (20-32) mmol/L BUN 17 (7-30) mg/dL Creatinine 0.6 (0.5-1.5) mg/dL Estimated Creat Clear 32.05 Estimated GFR 89 ml/min Glucose 90 (60-115) mg/dL Calcium 8.8 (8.4-10.6) mg/dL Magnesium 1.9 (1.5-2.6) mg/dL Total Bilirubin 0.9 (0.1-1.5) mg/dL AST 34 (12-35) U/L ALT 18 (4-35) U/L Alkaline Phosphatase 84 (40-150) U/L C-Reactive Protein 2.0 H (0.5-1.0) mg/dL Total Protein 6.8 (6.0-8.3) g/dL Albumin 3.7 (3.3-5.0) g/dL Stl C. diff Tox B Gene Negative (Negative) Stl C. diff [id number]-[id number] PRESUMPTIVE NEGATIVE (Negative) POC Troponin I 0.03 (0.01-0.04) ng/ml 03/28/23 Range/Units 15:15 WBC (4.50-11.00) K/uL RBC (4.00-5.20) m/uL Hgb (12.0-16.0) gm/dL Hct (33.0-51.0) % MCV (80-100) fL MCH (26-34) pg MCHC (32-36) gm/dL RDW Coeff of Ian (11.5-15.5) % Plt Count (140-440) K/uL Neut % (Auto) (42.0-72.0) % Lymph % (Auto) (20-44) % [place] % (Auto) (0.0-11.0) % Eos % (Auto) (0.0-7.0) % Baso % (Auto) (0.0-3.0) % Neut # (Auto) (1.7-7.0) K/uL Lymph # (Auto) (0.90-2.90) K/uL [place] # (Auto) (0.00-0.90) K/UL Eos # (Auto) (0.00-0.50) K/uL Baso # (Auto) (0.00-0.30) K/uL Sodium (135-149) mmol/L Potassium (3.6-5.1) mmol/L Chloride (96-114) mmol/L Carbon Dioxide (20-32) mmol/L BUN (7-30) mg/dL Creatinine (0.5-1.5) mg/dL Estimated Creat Clear Estimated GFR ml/min Glucose (60-115) mg/dL Calcium (8.4-10.6) mg/dL Magnesium (1.5-2.6) mg/dL Total Bilirubin (0.1-1.5) mg/dL AST (12-35) U/L ALT (4-35) U/L Alkaline Phosphatase (40-150) U/L C-Reactive Protein (0.5-1.0) mg/dL Total Protein (6.0-8.3) g/dL Albumin (3.3-5.0) g/dL Stl C. diff Tox B Gene (Negative) Stl C. diff [id number]-NAP1-BI (Negative) POC Troponin I 0.04 (0.01-0.04) ng/ml Imaging Data Chest x-ray: Attestation: I have reviewed the pertinent imaging results. My impression: No evidence of pneumonia. Radiologist's impression: There is hyperinflation and chronic interstitial change. There is no focal consolidation, effusion, or pneumothorax. The cardiac silhouette is mildly prominent with minimal aortic tortuosity. There are median sternotomy wires and surgical clips in the left hemithorax. The bony thorax is grossly intact. Impression: Hyperinflation and chronic interstitial change without dense consolidation. Cervical spine CT: Attestation: I have reviewed the pertinent imaging results. Radiologist's impression: Degenerative narrowing and spurring C1-2. Minor grade 1 anterolisthesis at C5-6. Mild disc height loss and osteophytes C4-5 and C6-C7. Moderate diffuse facet arthrosis. No fracture. No traumatic malalignment. Central canal widely patent. No significant bony encroachment neural foramina appreciated. Prevertebral soft tissues are normal. No finding of significance in the visualized lung apices. IMPRESSION: Mild degenerative disc and joint disease as above. Lumbar spine x-ray: Attestation: I have reviewed the pertinent imaging results. My impression: Degenerative disease Radiologist's impression: The lumbar vertebral body heights are grossly maintained with trace retrolisthesis of L4 on L5. No evidence of displaced fracture. There is moderate degenerative disc disease worst at the L3-L4 level. There is moderate facet arthrosis. The soft tissues are unremarkable. Impression: Moderate degenerative changes of the lumbar spine without acute osseous abnormality. ECG Data Attestation: I personally reviewed and interpreted this ECG as follows: Interpretation: EKG 1. By my read Discharge Plan Discharge Clinical Impression: Arm pain, Back pain, Diarrhea Patient Disposition: Home, Self-Care Condition: Improved Additional Instructions: For your arm pain-while we did not find any evidence of a heart attack today I do feel that you should follow-up with your primary provider and be set up for a chemical stress test. I am concerned that the arm pain you feel while you are working is actually angina. Please continue to take your aspirin and limit her activity. Return for worsening symptoms. Back pain-no evidence of fracture on the x-rays today. Recommend continuing your therapy. If pain continues you may need an MRI. Diarrhea-at this time labs are reassuring and this most likely represents possibly a viral process. You tested negative for C diff today If this is ongoing or worsening you may need a CT scan of your abdomen. At this time recommend keeping well hydrated. Prescriptions: No Action atorvastatin 80 mg tablet 80 mg PO HS lisinopril 20 mg tablet 20 mg PO DAILY alendronate 70 mg tablet 70 mg PO Q7D isosorbide mononitrate 120 mg tablet extended release 24 hr 120 mg PO DAILY metoprolol succinate 25 mg tablet extended release 24 hr 25 mg PO DAILY aspirin 81 mg capsule 81 mg PO DAILY aspirin 325 mg capsule 325 mg PO Q4-6H PRN clopidogrel 75 mg tablet 75 mg PO DAILY famotidine 20 mg tablet 20 mg PO Q12H Follow Up/Referrals: Carmina Enriquez, PAJarretC [Primary Care Provider] - Stand Alone Forms: [employer] Info Instructions
--- NOTE | 2023-03-28 13:01 | CRLHL7_ITS ---
For Patients: As a result of the Century Cures Act, medical imaging exams and procedure reports are released immediately into your electronic medical record. You may view this report before your referring provider. If you have questions, please contact your health care provider. Indication: Low-back pain with activity Comparison: None available. Technique: AP and lateral views lumbar spine were obtained. Findings: The lumbar vertebral body heights are grossly maintained with trace retrolisthesis of L4 on L5. No evidence of displaced fracture. There is moderate degenerative disc disease worst at the L3-L4 level. There is moderate facet arthrosis. The soft tissues are unremarkable. Impression: Moderate degenerative changes of the lumbar spine without acute osseous abnormality. Dictated by Toni Bell MD @ 03/28/2023 2:28:29 PM (Electronically Signed)
--- NOTE | 2023-03-28 13:01 | CRLHL7_ITS ---
For Patients: As a result of the Century Cures Act, medical imaging exams and procedure reports are released immediately into your electronic medical record. You may view this report before your referring provider. If you have questions, please contact your health care provider. INDICATION: Bilateral arm pain. TECHNIQUE: Multidetector imaging. Axial, coronal and sagittal formats. FINDINGS: Degenerative narrowing and spurring C1-2. Minor grade 1 anterolisthesis at C5-6. Mild disc height loss and osteophytes C4-5 and C6-C7. Moderate diffuse facet arthrosis. No fracture. No traumatic malalignment. Central canal widely patent. No significant bony encroachment neural foramina appreciated. Prevertebral soft tissues are normal. No finding of significance in the visualized lung apices. IMPRESSION: Mild degenerative disc and joint disease as above. Please note that all CT scans at this facility use dose modulation, iterative reconstruction, and/or weight-based dosing when appropriate to reduce radiation dose to as low as reasonably achievable. Dictated by Jose Madera MD @ 03/28/2023 2:09:05 PM (Electronically Signed)
--- NOTE | 2023-03-28 13:01 | CRLHL7_ITS ---
For Patients: As a result of the Century Cures Act, medical imaging exams and procedure reports are released immediately into your electronic medical record. You may view this report before your referring provider. If you have questions, please contact your health care provider. Indication: Atypical angina Comparison: Two-view chest June 24, 2022 Technique: Single AP view chest Findings: There is hyperinflation and chronic interstitial change. There is no focal consolidation, effusion, or pneumothorax. The cardiac silhouette is mildly prominent with minimal aortic tortuosity. There are median sternotomy wires and surgical clips in the left hemithorax. The bony thorax is grossly intact. Impression: Hyperinflation and chronic interstitial change without dense consolidation. Dictated by Toni Bell MD @ 03/28/2023 2:26:54 PM (Electronically Signed)
[2023-03-28 13:10] LABS: Basophils Absolute Auto 0.04 K/uL (0.00-0.30); Basophils Percent Auto 0.6 % (0.0-3.0); Eosinophils Absolute Auto 0.21 K/uL (0.00-0.50); Hematocrit 42.8 % (33.0-51.0); Hemoglobin* 13.6 gm/dL (12.0-16.0); Immature Granulocytes Abs Auto 0.01 K/uL (0.00-0.30); Immature Granulocytes Pct Auto 0.1 %; Lymphocytes Absolute Auto 1.66 K/uL (0.90-2.90); Lymphocytes Percent Auto 24.1 % (20-44); Mean Corpuscular HGB Conc 32 gm/dL (32-36); Mean Corpuscular Hemoglobin 31 pg (26-34); Mean Corpuscular Volume 96 fL (80-100); Monocytes Percent Auto 9.9 % (0.0-11.0); Neutrophils Absolute Auto 4.29 K/uL (1.7-7.0); Neutrophils Percent Auto 62.3 % (42.0-72.0); Platelet Count* 182 K/uL (140-440); RDW Coefficient of Variation % 14.4 % (11.5-15.5); Red Blood Count 4.45 m/uL (4.00-5.20); White Blood Count* 6.89 K/uL (4.50-11.00)
[2023-03-28 13:11] LABS: Slide Review Reflex No
[2023-03-28 13:23] LABS: Troponin, Point-of-Care* 0.03 ng/ml (0.01-0.04)
[2023-03-28 13:24] LABS: Albumin* 3.7 g/dL (3.3-5.0); Chloride* 106 mmol/L (96-114); Sodium* 136 mmol/L (135-149)
[2023-03-28 13:25] LABS: Potassium* 4.3 mmol/L (3.6-5.1)
[2023-03-28 13:27] LABS: Creatinine* 0.6 mg/dL (0.5-1.5); Est. Creatinine Clearance* 32.05; Estimated Glomerular Filt Rate 89 ml/min
[2023-03-28 13:28] LABS: Alanine Aminotransferase* 18 U/L (4-35); Alkaline Phosphatase* 84 U/L (40-150); Aspartate Amino Transferase* 34 U/L (12-35); Bilirubin Total* 0.9 mg/dL (0.1-1.5); Blood Urea Nitrogen* 17 mg/dL (7-30); Calcium* 8.8 mg/dL (8.4-10.6); Carbon Dioxide* 24 mmol/L (20-32); Glucose* 90 mg/dL (60-115); Magnesium* 1.9 mg/dL (1.5-2.6); Total Protein* 6.8 g/dL (6.0-8.3)
[2023-03-28] MEDS: 0.9 % SODIUM CHLORIDE 1000 ml 1,000 ML IV (14:24)
[2023-03-28 15:21] LABS: Troponin, Point-of-Care* 0.04 ng/ml (0.01-0.04)
[2023-03-28 15:45] LABS: C.Difficile Negative (Negative); CDIFFEPI 027 PRESUMPTIVE NEGATIVE (Negative)
== END 2023-03-28 16:22 | disposition home or self-care (01) ==
PROVIDERS: Emergency Provider Family Medicine; PCP Physician Assistant Medical
DX: R19.7 Diarrhea, unspecified (principal); M79.603 Pain in arm, unspecified; M54.9 Dorsalgia, unspecified
CPT/HCPCS: 36415; 71045; 72100; 72125; 80053; 83735; 84484; 85025; 86140; 87045; 87046; 87427; 87493; 93005; 99284; 99285; J7030

== ENCOUNTER 2023-03-29 06:58 | Emergency (ER) | payer MEDICARE, SELFPAY ==
[2023-03-29] VITALS (34 sets, daily range): BP systolic 109–142; BP diastolic 64–94; PULSE 68–78; RESP 18; TEMP 36.2–36.7; O2SAT 92–98; BMI 19.8
--- NOTE | 2023-03-29 08:20 | CRLHL7_ITS ---
For Patients: As a result of the Century Cures Act, medical imaging exams and procedure reports are released immediately into your electronic medical record. You may view this report before your referring provider. If you have questions, please contact your health care provider. INDICATION: Chest pain COMPARISON: March 28, 2023 TECHNIQUE: Single-view study March 29, 2023 at 8:27 a.m. FINDINGS: TUBES AND LINES: None. HEART AND MEDIASTINUM: The heart size is normal. The mediastinal contour appears normal for patient age.Sternotomy. LUNGS AND PLEURAL SPACES: The lungs appear normal.The pleural spaces are unremarkable. OSSEOUS STRUCTURES: Age-appropriate appearance. No acute focal finding. IMPRESSION: No evidence of active pulmonary disease. Sternotomy. Dictated by Kyle Cervantes MD @ 03/29/2023 9:07:22 AM (Electronically Signed)
[2023-03-29] MEDS: ASPIRIN 81 MG TAB.CHEW 324 MG PO (08:32)
[2023-03-29 08:33] LABS: Basophils Absolute Auto 0.03 K/uL (0.00-0.30); Basophils Percent Auto 0.4 % (0.0-3.0); Eosinophils Absolute Auto 0.14 K/uL (0.00-0.50); Hematocrit 42.4 % (33.0-51.0); Hemoglobin* 13.7 gm/dL (12.0-16.0); Lymphocytes Percent Auto 16.3 % (20-44); Mean Corpuscular HGB Conc 32 gm/dL (32-36); Mean Corpuscular Hemoglobin 31 pg (26-34); Mean Corpuscular Volume 95 fL (80-100); Monocytes Percent Auto 12.1 % (0.0-11.0); Neutrophils Percent Auto 69.2 % (42.0-72.0); Platelet Count* 174 K/uL (140-440); RDW Coefficient of Variation % 14.5 % (11.5-15.5); Red Blood Count 4.46 m/uL (4.00-5.20); White Blood Count* 6.94 K/uL (4.50-11.00)
--- NOTE | 2023-03-29 08:40 | ED_ITS ---
HPI - General Adult General Date Seen: 03/29/23 Chief complaint: Chest Pain Stated complaint: LF arm pain and diarrhea and vomiting Time Seen by Provider: 03/29/23 08:40 Source: patient Mode of arrival: ambulatory Limitations: no limitations History of Present Illness HPI narrative: Patient is an 82-year-old woman here with her daughter for further evaluation of arm pain and chest pain. She was seen here yesterday with some diarrhea. She has also been having some pain in both forearms, left greater than right, for several months now, since the end of November. She does have a history of coronary artery disease with anginal symptoms showing up as forearm pain previously. She was transferred to [facility] in May of last year after having a non-STEMI. She says she had a stent placed at that time. She says she did well until she sustained a fall with pelvic fractures in October. After leaving rehab at the end of November she started to experience pain in her arms again with walking, but she thought at 1st that this was related to using her walker. However, after discontinuing her walker she continued to have pain in her arms and this has persisted. For the past several days she has been having watery diarrhea, and every time she gets up to use the bathroom she has been getting pain in her arms. This relieves with rest. She had a workup yesterday which was unremarkable including negative troponins. However, overnight she had multiple episodes of diarrhea and again had arm pain every time she got up, and she also had chest pain overnight which was persistent. This prompted her to come back for re-evaluation. She has not developed abdominal pain or fever. She did have some vomiting at some point overnight or this morning she is not exactly sure when. Right now she is asymptomatic. Related Data Home Medications Medication Instructions Recorded Confirmed alendronate 70 mg tablet 70 mg PO Q7D 06/24/22 11/17/22 aspirin 325 mg capsule 325 mg PO Q4-6H PRN 06/24/22 06/24/22 aspirin 81 mg capsule 81 mg PO DAILY 06/24/22 11/17/22 atorvastatin 80 mg tablet 80 mg PO HS 06/24/22 11/17/22 isosorbide mononitrate 120 mg 120 mg PO DAILY 06/24/22 11/17/22 tablet,extended release 24 hr lisinopril 20 mg tablet 20 mg PO DAILY 06/24/22 11/17/22 metoprolol succinate 25 mg 25 mg PO DAILY 06/24/22 11/17/22 tablet,extended release 24 hr clopidogrel 75 mg tablet 75 mg PO DAILY 11/17/22 11/17/22 famotidine 20 mg tablet 20 mg PO Q12H 11/17/22 11/17/22 Allergies Allergy/AdvReac Type Severity Reaction Status Date / Time No Known Drug Allergies Allergy Verified 11/17/22 19:49 Review of Systems Status of ROS: Reports: 10 or more systems reviewed and unremarkable except as noted in History and below [facility] Medical History Acute myocardial infarction ?I21.9 - Acute myocardial infarction, unspecified (ICD-10) Coronary artery disease ?I25.10 - Atherosclerotic heart disease of [place] coronary artery without angina pectoris (ICD-10) GERD (gastroesophageal reflux disease) ?K21.9 - Gastro-esophageal reflux disease without esophagitis (ICD-10) Hypertension ?I10 - Essential (primary) hypertension (ICD-10) Left acetabular fracture ?S32.402A - Unspecified fracture of left acetabulum, initial encounter for closed fracture (ICD-10) Osteoarthritis ?M19.90 - Unspecified osteoarthritis, unspecified site (ICD-10) Pelvic ring fracture ?S32.810A - Multiple fractures of pelvis with stable disruption of pelvic ring, initial encounter for closed fracture (ICD-10) Subarachnoid hemorrhage ?I60.9 - Nontraumatic subarachnoid hemorrhage, unspecified (ICD-10) Subdural hematoma, acute ?S06.5XAA - Traumatic subdural hemorrhage with loss of consciousness status unknown, initial encounter (ICD-10) Surgical History History of hysterectomy ?Z90.710 - Acquired absence of both cervix and uterus (ICD-10) Hx of CABG ?Z95.1 - Presence of aortocoronary bypass graft (ICD-10) Tubal ligation status ?Z98.51 - Tubal ligation status (ICD-10) Family History Father Coronary artery disease Social History Narrative: She lives with her daughter and 2 adult grand children. She reports this has been going well for her. She does not use a walker or cane with ambulation. She does not smoke. She does not drink alcohol. Code status is DNR. She reports her daughter or 2 sons would be healthcare power of business attorney Highest level of school completed/degree received: high school graduate Smoking Status: Never smoker Do you use any of these nicotine containing products: None Second hand tobacco smoke exposure: No How often do you have a drink containing alcohol: never AUDIT-C Alcohol total score: 0 Non-prescribed substance use: denies use Caffeine: Yes (2 Cups Daily) service: No Exam Narrative: Exam Narrative: Vital signs as noted above. In general, an alert, well-appearing patient. Head: Normocephalic, atraumatic. Eyes: Pupils are equal reactive. Extraocular movements are full. Conjunctivae are normal. ENT: Mucous membranes are moist. Throat is normal. Neck: Supple without lymphadenopathy. Heart: Regular rate and rhythm. No murmur or rub. Lungs: Clear bilaterally. No increased work of breathing, crackles or wheezes. Abdomen: Soft and nontender. No organomegaly. Extremities: Well perfused. No edema. No calf tenderness. Pulses intact. Neurologic: Patient is alert and oriented to person and place. Speech is fluent. Face is symmetric. Moves all extremities equally. Affect: Normal. Skin: Warm and dry. Well perfused. Const: Vital Signs, click to edit/add: Vital Signs - 24 hr 03/29/23 07:15 03/29/23 07:26 03/29/23 07:30 Temperature 97.2 F L Pulse Rate 72 70 Pulse Rate [Pulse Oximeter] 76 Respiratory Rate 18 Blood Pressure Blood Pressure [Le ft Upper Arm] 128/84 Pulse Oximetry 96 96 97 Oxygen Delivery Me thod Room Air 03/29/23 07:45 03/29/23 07:40 03/29/23 08:00 Temperature Pulse Rate 74 73 Pulse Rate [Pulse Oximeter] Respiratory Rate Blood Pressure Blood Pressure [Le ft Upper Arm] Pulse Oximetry 96 98 96 Oxygen Delivery Me thod 03/29/23 08:15 03/29/23 08:30 03/29/23 08:45 Temperature Pulse Rate 76 73 75 Pulse Rate [Pulse Oximeter] Respiratory Rate Blood Pressure Blood Pressure [Le ft Upper Arm] Pulse Oximetry 97 97 97 Oxygen Delivery Me thod 03/29/23 09:00 03/29/23 09:15 03/29/23 09:30 Temperature Pulse Rate 78 76 71 Pulse Rate [Pulse Oximeter] Respiratory Rate Blood Pressure Blood Pressure [Le ft Upper Arm] Pulse Oximetry 97 94 97 Oxygen Delivery Me thod 03/29/23 09:45 03/29/23 09:56 03/29/23 10:00 Temperature Pulse Rate 74 76 76 Pulse Rate [Pulse Oximeter] Respiratory Rate Blood Pressure 127/75 Blood Pressure [Le ft Upper Arm] Pulse Oximetry 96 97 96 Oxygen Delivery Me thod 03/29/23 10:01 03/29/23 10:15 03/29/23 10:30 Temperature 98.1 F Pulse Rate 74 74 75 Pulse Rate [Pulse Oximeter] Respiratory Rate Blood Pressure 123/70 Blood Pressure [Le ft Upper Arm] Pulse Oximetry 97 95 96 Oxygen Delivery Me thod 03/29/23 10:32 03/29/23 10:45 03/29/23 11:00 Temperature Pulse Rate 72 75 75 Pulse Rate [Pulse Oximeter] Respiratory Rate Blood Pressure 109/64 Blood Pressure [Le ft Upper Arm] Pulse Oximetry 95 96 97 Oxygen Delivery Me thod 03/29/23 11:02 03/29/23 11:15 03/29/23 11:30 Temperature Pulse Rate 69 68 70 Pulse Rate [Pulse Oximeter] Respiratory Rate Blood Pressure 142/81 H Blood Pressure [Le ft Upper Arm] Pulse Oximetry 98 97 96 Oxygen Delivery Me thod 03/29/23 11:32 03/29/23 11:45 03/29/23 12:00 Temperature Pulse Rate 73 71 69 Pulse Rate [Pulse Oximeter] Respiratory Rate Blood Pressure 125/94 H Blood Pressure [Le ft Upper Arm] Pulse Oximetry 95 96 94 Oxygen Delivery Me thod 03/29/23 12:02 03/29/23 12:15 03/29/23 12:30 Temperature Pulse Rate 70 70 69 Pulse Rate [Pulse Oximeter] Respiratory Rate Blood Pressure 122/73 Blood Pressure [Le ft Upper Arm] Pulse Oximetry 95 95 97 Oxygen Delivery Me thod 03/29/23 12:32 03/29/23 12:45 03/29/23 13:00 Temperature Pulse Rate 68 71 68 Pulse Rate [Pulse Oximeter] Respiratory Rate Blood Pressure 138/77 Blood Pressure [Le ft Upper Arm] Pulse Oximetry 94 92 98 Oxygen Delivery Me thod 03/29/23 13:01 Temperature Pulse Rate 70 Pulse Rate [Pulse Oximeter] Respiratory Rate Blood Pressure 131/76 Blood Pressure [Le ft Upper Arm] Pulse Oximetry 98 Oxygen Delivery Me thod Course Course Hospital Course: Initial EKG shows right bundle-branch block. She does have some ST depression noted in the inferior and lateral leads, as well as some ST elevation in AVR.. This looks similar to her EKG from last May but new compared to yesterday. Initial point of care troponin was 1, confirmed with a lab troponin of 1.3. She remained asymptomatic while here in the emergency department. I did make a decision to transfer her to an outside facility around 9:00 a.m., and was able to talk with Cardiology around 915. Dr. Perry at [facility] did not feel that she needed emergent catheterization but did accept her for transfer there. Her course was complicated somewhat by the fact that she had a recent subdural hematoma in October. Therefore he recommended that I talk with Neurosurgery prior to giving her heparin. I was able to speak eventually with neuro surgery, who recommended a repeat head CT prior to heparinization. As long as she did not have any acute hemorrhage nor any chronic subdural greater than 6-7 mm, they felt that heparinization was reasonable. She had this and by my review I did not see any significant findings. Final radiology read was unremarkable. Therefore I have ordered heparin. She had aspirin right after my initial assessment. She had a chest x-ray which was normal by my review. Final radiology read was negative for acute findings. Other labs were fairly unremarkable. I had initially ordered a D-dimer, which is elevated, but I do not think at this time she needs a CT scan. I think the etiology of her symptoms is clear. I did obtain records from [facility] where she was hospitalized last summer. She had a catheterization at that time showing that her previous vein graft to the RCA had a high-grade stenosis and this was stented. They also noted she had a 70-80% stenosis of the mid LAD. They were recommending medical management of this unless she develops recurrent symptoms. Appear at this time that she does have recurrent symptoms and requires repeat catheterization. CBC was unremarkable. Metabolic panel normal, creatinine 0.5. Lactate 0.9. LFTs unremarkable. CRP 1.3. Repeat troponin pending. She has not complained of further chest pain or arm pain. Hemodynamically stable. Awaiting bed placement at [facility] as of 11:30 a.m.. Repeat troponin was 1.59. Patient left the emergency department at about 130 p.m.. Vital Signs Vital signs: Initial Vital Signs Temperature 97.2 F L 03/29/23 07:15 Temperature Source Temporal Artery Scan 03/29/23 07:15 Pulse Rate 76 03/29/23 07:15 Pulse Rhythm Regular 03/29/23 07:15 Respiratory Rate 18 03/29/23 07:15 Blood Pressure 128/84 03/29/23 07:15 Blood Pressure Mean 98 03/29/23 07:15 Blood Pressure Position Supine 03/29/23 07:15 Pulse Oximetry 96 03/29/23 07:15 Oxygen Delivery Method Room Air 03/29/23 07:15 Vital Signs Temperature 97.2 F L 03/29/23 07:15 Pulse Rate 76 03/29/23 07:15 Respiratory Rate 18 03/29/23 07:15 Blood Pressure 128/84 03/29/23 07:15 Pulse Oximetry 96 03/29/23 07:15 Oxygen Delivery Method Room Air 03/29/23 07:15 Temperature 98.1 F 03/29/23 10:30 Pulse Rate 70 03/29/23 13:01 Respiratory Rate 18 03/29/23 07:15 Blood Pressure 131/76 03/29/23 13:01 Pulse Oximetry 98 03/29/23 13:01 Oxygen Delivery Method Room Air 03/29/23 07:15 Medical Decision Making Lab Data Labs: Lab Results 03/29/23 03/29/23 03/29/23 Range/Units 07:40 08:47 11:33 WBC 6.94 (4.50-11.00) K/uL RBC 4.46 (4.00-5.20) m/uL Hgb 13.7 (12.0-16.0) gm/dL Hct 42.4 (33.0-51.0) % MCV 95 (80-100) fL MCH 31 (26-34) pg MCHC 32 (32-36) gm/dL RDW Coeff of Ian 14.5 (11.5-15.5) % Plt Count 174 (140-440) K/uL Neut % (Auto) 69.2 (42.0-72.0) % Lymph % (Auto) 16.3 L (20-44) % [place] % (Auto) 12.1 H (0.0-11.0) % Eos % (Auto) 2.0 (0.0-7.0) % Baso % (Auto) 0.4 (0.0-3.0) % Neut # (Auto) 4.80 (1.7-7.0) K/uL Lymph # (Auto) 1.10 (0.90-2.90) K/uL [place] # (Auto) 0.80 (0.00-0.90) K/UL Eos # (Auto) 0.14 (0.00-0.50) K/uL Baso # (Auto) 0.03 (0.00-0.30) K/uL D-Dimer Quant (PE/DVT) 1.80 H (0.00-0.50) ug/ml Sodium 135 (135-149) mmol/L Potassium 3.7 (3.6-5.1) mmol/L Chloride 108 (96-114) mmol/L Carbon Dioxide 20 (20-32) mmol/L BUN 14 (7-30) mg/dL Creatinine 0.5 (0.5-1.5) mg/dL Estimated Creat Clear 32.05 Estimated GFR 93 ml/min Glucose 98 (60-115) mg/dL Lactate 0.9 (0.5-1.9) mmol/L Calcium 8.8 (8.4-10.6) mg/dL Total Bilirubin 1.1 (0.1-1.5) mg/dL Direct Bilirubin 0.2 (0.0-0.5) mg/dL AST 38 H (12-35) U/L ALT 18 (4-35) U/L Alkaline Phosphatase 82 (40-150) U/L Troponin I 1.34 H* (0.01-0.04) ng/mL C-Reactive Protein 1.3 H (0.5-1.0) mg/dL Total Protein 6.9 (6.0-8.3) g/dL Albumin 3.7 (3.3-5.0) g/dL POC Troponin I 1.59 H (0.01-0.04) ng/ml Discharge Plan Discharge Prescriptions: No Action atorvastatin 80 mg tablet 80 mg PO HS lisinopril 20 mg tablet 20 mg PO DAILY alendronate 70 mg tablet 70 mg PO Q7D isosorbide mononitrate 120 mg tablet extended release 24 hr 120 mg PO DAILY metoprolol succinate 25 mg tablet extended release 24 hr 25 mg PO DAILY aspirin 81 mg capsule 81 mg PO DAILY aspirin 325 mg capsule 325 mg PO Q4-6H PRN clopidogrel 75 mg tablet 75 mg PO DAILY famotidine 20 mg tablet 20 mg PO Q12H Follow Up/Referrals: Carmina Enriquez, PAJarretC [Primary Care Provider] -
[2023-03-29 08:45] LABS: Slide Review Reflex No
[2023-03-29 08:46] LABS: Albumin* 3.7 g/dL (3.3-5.0); Chloride* 108 mmol/L (96-114); Potassium* 3.7 mmol/L (3.6-5.1); Sodium* 135 mmol/L (135-149)
[2023-03-29 08:48] LABS: Creatinine* 0.5 mg/dL (0.5-1.5); Est. Creatinine Clearance* 32.05; Estimated Glomerular Filt Rate 93 ml/min
[2023-03-29 08:49] LABS: Alanine Aminotransferase* 18 U/L (4-35); Alkaline Phosphatase* 82 U/L (40-150); Aspartate Amino Transferase* 38 U/L (12-35); Bilirubin Direct* 0.2 mg/dL (0.0-0.5); Bilirubin Total* 1.1 mg/dL (0.1-1.5); Blood Urea Nitrogen* 14 mg/dL (7-30); Carbon Dioxide* 20 mmol/L (20-32); Total Protein* 6.9 g/dL (6.0-8.3)
[2023-03-29 08:50] LABS: Calcium* 8.8 mg/dL (8.4-10.6); Glucose* 98 mg/dL (60-115)
[2023-03-29 08:52] LABS: C Reactive Protein* 1.3 mg/dL (0.5-1.0)
[2023-03-29 08:57] LABS: Lactate* 0.9 mmol/L (0.5-1.9)
[2023-03-29 09:05] LABS: Troponin I* 1.34 ng/mL (0.01-0.04)
--- NOTE | 2023-03-29 10:28 | CRLHL7_ITS ---
For Patients: As a result of the Century Cures Act, medical imaging exams and procedure reports are released immediately into your electronic medical record. You may view this report before your referring provider. If you have questions, please contact your health care provider. INDICATION: Follow-up subdural hematoma COMPARISON: November 18, 2022 TECHNIQUE: CT examination of the head was performed as axial sections without intravenous contrast. Images were obtained from the vertex of the skull through the skull base. Please note that all CT scans at this facility use dose modulation, iterative reconstruction, and/or weight-based dosing when appropriate to reduce radiation dose to as low as reasonably achievable. FINDINGS: The brain shows no sign of mass lesion, mass effect, hemorrhage, or edema. There are involutional changes. There is moderate cortical atrophy and there is moderate white matter disease. There is no hydrocephalus. The visualized portions of the orbits are normal in appearance. The osseous structures are normal in appearance with no sign of abnormality in the skull base or calvarium. The subdural hematoma noted previously has resolved IMPRESSION: Involutional changes. No acute-appearing findings. The subdural hematoma noted previously has resolved. No residual or new intracranial hemorrhage Please note that all CT scans at this facility use dose modulation, iterative reconstruction, and/or weight-based dosing when appropriate to reduce radiation dose to as low as reasonably achievable. Dictated by Kyle Cervantes MD @ 03/29/2023 11:15:18 AM (Electronically Signed)
[2023-03-29] MEDS: HEPARIN 25,000 UNIT/500 ML BAG 11 UNIT IV (12:00)
[2023-03-29] MEDS: HEPARIN 5,000 UNIT/0.5 ML INJ 2900 UNIT IVP (12:00)
[2023-03-29 12:07] LABS: Troponin, Point-of-Care* 1.59 ng/ml (0.01-0.04)
--- NOTE | 2023-03-29 12:47 | ED.NURSE ---
Report to Paris Nichols RN. EMS called for transport.
--- NOTE | 2023-03-29 13:13 | ED.NURSE ---
Pt and belongings transferred to [facility] via [facility].
[2023-04-21 14:17] LABS: Troponin, Point-of-Care* 1.02 ng/ml (0.01-0.04)
== END 2023-03-29 13:16 | disposition short-term general hospital (02) ==
PROVIDERS: Family Medicine; Emergency Provider Emergency Medicine; PCP Physician Assistant Medical
DX: R07.9 Chest pain, unspecified (principal)
CPT/HCPCS: 36415; 70450; 71045; 80048; 80076; 83605; 84484; 85025; 85379; 86140; 93005; 94761; 99284; 99285; A9270; J1644

== ENCOUNTER 2023-03-29 13:06 | Outpatient (CLI) | payer MEDICARE, SELFPAY | END 2023-03-29 13:07 | disposition home or self-care (01) | LOC: AMB 03-31 06:30 | PROVIDERS: PCP Physician Assistant Medical; Visit Provider Emergency Medicine | DX: R07.89 Other chest pain (principal) | CPT/HCPCS: A0425; A0434 ==

== ENCOUNTER 2023-06-08 07:12 | Observation (INO) | payer MEDICARE, SELFPAY ==
[2023-06-08 07:31] VITALS: BP 137/75; PULSE 80; RESP 16; TEMP 36.8; O2SAT 93; BMI 20.6
--- NOTE | 2023-06-08 08:37 | CRLHL7_ITS ---
For Patients: As a result of the Century Cures Act, medical imaging exams and procedure reports are released immediately into your electronic medical record. You may view this report before your referring provider. If you have questions, please contact your health care provider. INDICATION: ABD PAIN. CONSTIPATION TECHNIQUE: CT abdomen and pelvis without contrast COMPARISON: None. FINDINGS: Kidney/ureters: Kidneys are normal in caliber. No kidney or ureteral stones. Severely distended urinary bladder without wall thickening. Mild left greater than right hydronephrosis likely related to distended bladder. Liver/gallbladder/bile ducts: The liver is normal in size, shape and attenuation. Status post cholecystectomy. No biliary dilatation. Spleen/pancreas/adrenal glands: The spleen, adrenal glands and pancreas are within normal limits. GI tract: No evidence of bowel obstruction. Large volume fecal retention throughout the colon and rectum. Probable fecal impaction with rectal stool burden measuring up to 4.7 x 5.2 cm with associated rectal wall thickening. There is mild surrounding perirectal inflammation raising concerns for developing stercoral colitis. Scattered colonic diverticulosis without evidence of diverticulitis. Abdominal wall/omentum/peritoneum: No free air or significant free fluid. No mass or inflammation. Lymph nodes: No lymphadenopathy. Vasculature: Normal aorta of normal caliber severe aortoiliac atherosclerosis. Pelvis: Status post hysterectomy. Lower chest: Mild right basilar opacity favors atelectasis over developing consolidation. Right lower lobe 4 mm partially calcified nodule which favors probable granuloma. Bones: Subacute to chronic appearing left inferior pubic ramus, left anterior acetabular rim, and left pubic symphysis fractures. Age-indeterminate bilateral sacral insufficiency fractures. Moderate to advanced multilevel degenerative spondylosis. Chronic bilateral L5 pars defects. IMPRESSION: 1. Large volume fecal retention throughout the colon and rectum. Probable fecal impaction with rectal stool burden measuring up to 4.7 x 5.2 cm with associated rectal wall thickening. There is mild surrounding perirectal inflammation raising concerns for developing stercoral colitis. Consider fecal disimpaction. 2. Severely distended urinary bladder without wall thickening. Mild left greater than right hydronephrosis likely related to distended bladder. Consider Dejesus catheter decompression. 3. Age-indeterminate bilateral sacral insufficiency fractures and multiple subacute to chronic appearing left-sided pelvic fractures. 4. Mild right basilar opacity favors atelectasis over developing consolidation. Please note that all CT scans at this facility use dose modulation, iterative reconstruction, and/or weight-based dosing when appropriate to reduce radiation dose to as low as reasonably achievable. Dictated by Fabian Goss MD @ 06/08/2023 9:33:49 AM (Electronically Signed)
--- NOTE | 2023-06-08 08:39 | ED_ITS ---
HPI - General Adult General Time Seen by Provider: 08:40 Date Seen: 06/08/23 Chief complaint: Constipation Stated complaint: constipation Time Seen by Provider: 06/08/23 08:02 Source: patient Mode of arrival: ambulatory Limitations: no limitations History of Present Illness HPI narrative: Patient is an 82-year-old female with history of ACS, subarachnoid and subdural hematomas, recent rib fractures presenting to emergency department for constipation. She states 1 week ago she fell in her bathtub causing fractures to her ribs. She was seen in urgent care that time. She started on Tylenol and codeine for pain. Since then she has not been able have a bowel movement. She feels like she is becoming very backed up and is developing mild abdominal pain associated with it. Patient states she has not been taking any stool softeners at this time. Does note she had her 1st bowel movement today was only a small amount. Patient denies having issues constipation in the past. Denies fevers, chills, chest pain, shortness of breath, headache, focal neurological deficits, dysuria, difficulty urinating. Does admit she has not had months of an appetite recently but the stated she does eat it does not cause any extra pain. Related Data Home Medications Medication Instructions Recorded Confirmed alendronate 70 mg tablet 70 mg PO Q7D 06/24/22 06/08/23 aspirin 81 mg capsule 81 mg PO DAILY 06/24/22 06/08/23 atorvastatin 80 mg tablet 80 mg PO HS 06/24/22 06/08/23 isosorbide mononitrate 120 mg 120 mg PO DAILY 06/24/22 06/08/23 tablet,extended release 24 hr lisinopril 20 mg tablet 20 mg PO DAILY 06/24/22 06/08/23 metoprolol succinate 25 mg 25 mg PO DAILY 06/24/22 06/08/23 tablet,extended release 24 hr clopidogrel 75 mg tablet 75 mg PO DAILY 11/17/22 06/08/23 famotidine 20 mg tablet 20 mg PO Q12H 11/17/22 06/08/23 multivitamin 1 tab PO QAM 05/14/23 06/08/23 nitroglycerin 0.4 mg sublingual 0.4 mg sublingual Q5M PRN 05/14/23 06/08/23 tablet mupirocin 2 % topical ointment 1 applic topical BID-TID 06/03/23 06/08/23 Previous Rx's Medication Instructions Recorded acetaminophen 300 mg-codeine 30 mg 1 tab PO TID PRN pain #20 tabs 06/03/23 tablet Allergies Allergy/AdvReac Type Severity Reaction Status Date / Time No Known Drug Allergies Allergy Verified 06/08/23 07:29 Review of Systems Status of ROS: Reports: 10 or more systems reviewed and unremarkable except as noted in History and below PFSH [facility] Medical History Rib pain ?R07.81 - Pleurodynia (ICD-10) Subarachnoid hemorrhage ?I60.9 - Nontraumatic subarachnoid hemorrhage, unspecified (ICD-10) Subdural hematoma, acute ?S06.5XAA - Traumatic subdural hemorrhage with loss of consciousness status unknown, initial encounter (ICD-10) Left acetabular fracture ?S32.402A - Unspecified fracture of left acetabulum, initial encounter for closed fracture (ICD-10) Pelvic ring fracture ?S32.810A - Multiple fractures of pelvis with stable disruption of pelvic ring, initial encounter for closed fracture (ICD-10) Coronary artery disease ?I25.10 - Atherosclerotic heart disease of [place] coronary artery without angina pectoris (ICD-10) Hypertension ?I10 - Essential (primary) hypertension (ICD-10) Osteoarthritis ?M19.90 - Unspecified osteoarthritis, unspecified site (ICD-10) GERD (gastroesophageal reflux disease) ?K21.9 - Gastro-esophageal reflux disease without esophagitis (ICD-10) Acute myocardial infarction ?I21.9 - Acute myocardial infarction, unspecified (ICD-10) Surgical History Tubal ligation status ?Z98.51 - Tubal ligation status (ICD-10) History of hysterectomy ?Z90.710 - Acquired absence of both cervix and uterus (ICD-10) Hx of CABG ?Z95.1 - Presence of aortocoronary bypass graft (ICD-10) Family History Father Coronary artery disease Social History Narrative: She lives with her daughter and 2 adult grand children. She reports this has been going well for her. She does not use a walker or cane with ambulation. She does not smoke. She does not drink alcohol. Code status is DNR. She reports her daughter or 2 sons would be healthcare power of workers compensation defense attorney Highest level of school completed/degree received: high school graduate Smoking Status: Never smoker Do you use any of these nicotine containing products: None Second hand tobacco smoke exposure: No How often do you have a drink containing alcohol: never How often do you have six or more drinks on one occasion: Never AUDIT-C Alcohol total score: 0 Non-prescribed substance use: denies use Caffeine: Yes (2 Cups Daily) service: No Exam Narrative: Exam Narrative: Const: Well-nourished, Well-developed, in mild distress Eyes: PERRL, no conjunctival injection, and symmetrical lids ENMT: Atraumatic external nose and ears. Moist mucous membranes. Neck: Symmetric, trachea midline, No thyromegaly. CVS: RRR, No murmurs or gallops. Peripheral pulses 2+ and equal in all extremities RESP: Unlabored respiratory effort. Clear to auscultation bilaterally. GI: Mild lower abdominal tenderness, mild suprapubic distention, No rebound or guarding. MSK:Extremities w/o deformity, Normal Active ROM Skin: Warm, Dry. No rashes or lesions. Neuro: Normal Muscle tone, No focal neurological deficits. Psych: Awake, Alert, & Oriented x3. Appropriate mood and affect. Const: Vital Signs, click to edit/add: Vital Signs - 24 hr 06/08/23 07:31 06/08/23 11:36 Temperature 98.3 F 97 F L Pulse Rate [Pulse Oximeter] 80 85 Respiratory Rate 16 20 Blood Pressure [Ri t Upper Arm] 137/75 145/59 H Pulse Oximetry 93 96 Oxygen Delivery Me thod Room Air Room Air Course Vital Signs Vital signs: Initial Vital Signs Temperature 98.3 F 06/08/23 07:31 Temperature Source Temporal Artery Scan 06/08/23 07:31 Pulse Rate 80 06/08/23 07:31 Pulse Rhythm Regular 06/08/23 07:31 Pulse Strength 3+ Normal 06/08/23 07:31 Respiratory Rate 16 06/08/23 07:31 Blood Pressure 137/75 06/08/23 07:31 Blood Pressure Mean 95 06/08/23 07:31 Blood Pressure Position Sitting 06/08/23 07:31 Pulse Oximetry 93 06/08/23 07:31 Oxygen Delivery Method Room Air 06/08/23 07:31 Vital Signs Temperature 98.3 F 06/08/23 07:31 Pulse Rate 80 06/08/23 07:31 Respiratory Rate 16 06/08/23 07:31 Blood Pressure 137/75 06/08/23 07:31 Pulse Oximetry 93 06/08/23 07:31 Oxygen Delivery Method Room Air 06/08/23 07:31 Temperature 97 F L 06/08/23 11:36 Pulse Rate 85 06/08/23 11:36 Respiratory Rate 20 06/08/23 11:36 Blood Pressure 145/59 H 06/08/23 11:36 Pulse Oximetry 96 06/08/23 11:36 Oxygen Delivery Method Room Air 06/08/23 11:36 Medical Decision Making MDM Narrative Medical decision making narrative: Patient is an 82-year-old female with a history of coronary artery disease, subarachnoid and subdural hematomas, presents to emergency department for constipation. She fell a week and a half ago breaking a couple ribs she has been on Tylenol/codeine since then. Has a bowel movement in that time frame. She is also now also having some mild suprapubic abdominal pain. CBC, CMP, urinalysis, CT scan full contrast of the abdomen pelvis for all ordered. Patient's lab work returns showing no concerning abnormalities. No signs of urinary tract infection at this time. CT scan with contrast showed concerns for stercoral colitis and she has a large fecal impaction. She also has h ydronephrosis likely secondary to her distended bladder. Is likely distended due to the large impaction causing an obstruction. Was also some concern for chronic to subacute sacral and pelvic fractures but she is having no pain at this time and is ambulatory so this is unlikely to be acute. There is no signs of acute bowel obstruction at this time. I did do a fecal disimpaction angle large amount of stool out. We did do multiple enemas without patient having a bowel movement. Dejesus was placed and over 1200 mL of urine was removed. I did speak to Dr. Esquivel who recommends patient be admitted for observation overnight for for a bowel regimen to make sure she has a bowel movement considering the concern for the stercoral colitis. I spoke to the admitting hospitalist Dr. Royal accepted the patient for admission. Patient is aware of the plan and agrees with the decision. Differential Diagnosis Differential Diagnosis: Constipation, UTI, diverticulitis, bowel obstruction Lab Data Labs: Lab Results 06/08/23 06/08/23 Range/Units 08:50 09:25 WBC 11.20 H (4.50-11.00) K/uL RBC 3.89 L (4.00-5.20) m/uL Hgb 11.9 L (12.0-16.0) gm/dL Hct 37.5 (33.0-51.0) % MCV 96 (80-100) fL MCH 31 (26-34) pg MCHC 32 (32-36) gm/dL RDW Coeff of Ian 14.4 (11.5-15.5) % Plt Count 274 (140-440) K/uL Neut % (Auto) 70.0 (42.0-72.0) % Lymph % (Auto) 16.5 L (20-44) % Williams % (Auto) 10.4 (0.0-11.0) % Eos % (Auto) 1.8 (0.0-7.0) % Baso % (Auto) 0.4 (0.0-3.0) % Neut # (Auto) 7.80 H (1.7-7.0) K/uL Lymph # (Auto) 1.80 (0.90-2.90) K/uL Williams # (Auto) 1.20 H (0.00-0.90) K/UL Eos # (Auto) 0.20 (0.00-0.50) K/uL Baso # (Auto) 0.00 (0.00-0.30) K/uL Abs Immat Gran (auto) 0.10 (0.00-0.30) K/uL Imm/Tot Granulo (auto) 0.9 % Sodium 135 (135-149) mmol/L Potassium 4.4 (3.6-5.1) mmol/L Chloride 99 (96-114) mmol/L Carbon Dioxide 29 (20-32) mmol/L BUN 12 (7-30) mg/dL Creatinine 0.6 (0.5-1.5) mg/dL Estimated Creat Clear 32.17 Estimated GFR 89 ml/min Glucose 113 (60-115) mg/dL Calcium 9.4 (8.4-10.6) mg/dL Total Bilirubin 1.5 (0.1-1.5) mg/dL AST 33 (12-35) U/L ALT 19 (4-35) U/L Alkaline Phosphatase 98 (40-150) U/L Total Protein 7.7 (6.0-8.3) g/dL Albumin 4.2 (3.3-5.0) g/dL Urine Color Yellow (Yellow) Urine Appearance Clear (Clear) Urine pH 7.5 (5.0-8.5) Ur Specific [place] 1.010 (1.000-1.030) Urine Protein Negative (Negative) Urine Glucose (UA) Negative (Negative) Urine Ketones Negative (Negative) Urine Blood Negative (Negative) Urine Nitrite Negative (Negative) Urine Bilirubin Negative (Negative) Urine Urobilinogen 0.2 (0.2-1.0) Ur Leukocyte Esterase 1+ A (Negative) Urine RBC 0-2 (0-2) Urine WBC 0-2 (0-5) Ur Squamous Epith Cells Few (None-Few) Amorphous Sediment Many A (None) Urine Bacteria None (None) Discharge Plan Discharge Patient Disposition: Admitted As Observation Condition: Stable
[2023-06-08 09:15] LABS: Basophils Percent Auto 0.4 % (0.0-3.0); Eosinophils Percent Auto 1.8 % (0.0-7.0); Hematocrit 37.5 % (33.0-51.0); Hemoglobin* 11.9 gm/dL (12.0-16.0); Immature Granulocytes Pct Auto 0.9 %; Lymphocytes Percent Auto 16.5 % (20-44); Mean Corpuscular HGB Conc 32 gm/dL (32-36); Mean Corpuscular Hemoglobin 31 pg (26-34); Mean Corpuscular Volume 96 fL (80-100); Monocytes Percent Auto 10.4 % (0.0-11.0); Platelet Count* 274 K/uL (140-440); RDW Coefficient of Variation % 14.4 % (11.5-15.5); Red Blood Count 3.89 m/uL (4.00-5.20)
--- NOTE | 2023-06-08 09:20 | ED.NURSE ---
pt voided small amount
[2023-06-08 09:39] LABS: Appearance Urine Clear (Clear); Bilirubin Urine Negative (Negative); Blood Urine Negative (Negative); Color Urine Yellow (Yellow); Glucose Urine Negative (Negative); Ketones Urine Negative (Negative); Leukocyte Esterase Urine 1+ (Negative); Nitrite Urine Negative (Negative); Protein Urine Negative (Negative); Urobilinogen Urine 0.2 (0.2-1.0); pH Urine 7.5 (5.0-8.5)
[2023-06-08 09:41] LABS: Albumin* 4.2 g/dL (3.3-5.0)
[2023-06-08 09:42] LABS: Chloride* 99 mmol/L (96-114); Potassium* 4.4 mmol/L (3.6-5.1); Sodium* 135 mmol/L (135-149)
[2023-06-08 09:44] LABS: Aspartate Amino Transferase* 33 U/L (12-35); Bilirubin Total* 1.5 mg/dL (0.1-1.5); Carbon Dioxide* 29 mmol/L (20-32); Creatinine* 0.6 mg/dL (0.5-1.5); Est. Creatinine Clearance* 32.17; Estimated Glomerular Filt Rate 89 ml/min; Total Protein* 7.7 g/dL (6.0-8.3)
[2023-06-08 09:45] LABS: Alanine Aminotransferase* 19 U/L (4-35); Alkaline Phosphatase* 98 U/L (40-150); Blood Urea Nitrogen* 12 mg/dL (7-30); Calcium* 9.4 mg/dL (8.4-10.6); Glucose* 113 mg/dL (60-115)
[2023-06-08 09:54] LABS: Slide Review Reflex No
[2023-06-08 09:55] LABS: RBC Urine 0-2 (0-2); WBC Urine 0-2 (0-5)
[2023-06-08 09:56] LABS: Amorphous Sediment Urine Many; Squamous Epithelial Cell Urine Few (None-Few)
--- NOTE | 2023-06-08 10:40 | ED.NURSE ---
16f martinez placed. Patient tolerated well. 10cc saline installed.
--- NOTE | 2023-06-08 11:22 | ED.NURSE ---
pt voided 1200 cc out of Dejesus bag
[2023-06-08] MEDS: DOCUSATE SODIUM/BENZOCAINE 5 ML ENEMA PR (11:32)
--- NOTE | 2023-06-08 11:35 | ED.NURSE ---
fleets given at 1100 with minimal relief, small amount of blood noted in her BM. Very small bowel movement with fleets.
[2023-06-08 11:36] VITALS: BP 145/59; PULSE 85; RESP 20; TEMP 36.1; O2SAT 96
--- NOTE | 2023-06-08 13:45 | ED.NURSE ---
Patient transported to M/S. Report given to ALLY Floyd. Patient brought to room 251. All belongings sent with patient. +
[2023-06-08 14:03] VITALS: BP 158/79; PULSE 85; RESP 16; TEMP 36.9; O2SAT 93; BMI 19.9
[2023-06-08] MEDS: METOPROLOL SUCCINATE (XL) 25 MG TAB 37.5 MG PO (16:04)
[2023-06-08] MEDS: polyethylene glycoL 3350 17 GM PACK PO ×2 (16:04→20:52)
[2023-06-08] MEDS: ISOSORBIDE MONONITRATE ER 30 MG TAB 120 MG PO (16:04)
[2023-06-08] MEDS: ASPIRIN 81 MG TABLET EC PO (16:05)
[2023-06-08] MEDS: CLOPIDOGREL 75 MG TABLET PO (16:05)
[2023-06-08] MEDS: lisinopriL 10 MG TABLET PO (16:06)
[2023-06-08] MEDS: SENNOSIDES 1 TAB TABLET 2 TAB PO ×2 (16:06→20:51)
--- NOTE | 2023-06-08 16:40 | P.IMHP_ITS ---
Hospitalist- H&P: YULI History of Present Illness Date Seen: 06/08/23 Chief complaint: constipation Narrative: Poly Salgado is a 82 year old female with history of ACS, recent coronary stenting, subarachnoid and subdural hematomas, recent rib fractures presenting to emergency department for constipation. She states 1 week ago she fell in her bathtub causing fractures to her ribs, 3 ribs on the right lateral chest. She was seen in urgent care that time. She started on Tylenol and codeine for pain. Since then she has not been able have a bowel movement. She feels like she is becoming very backed up and is developing mild abdominal pain associated with it. Patient states she has not been taking any stool softeners at this time. Yesterday she did uses suppository without significant results. Does note she had her 1st bowel movement today was only a small amount. Patient denies having issues constipation in the past. Normally has 1 bowel movement a day without straining. Denies fevers, chills, chest pain, shortness of breath, headache, focal neurological deficits, dysuria, difficulty urinating. She reports she has been eating normally until the last couple days when her appetite is less. She is not aware of having any urinary problems. In the emergency department they found that she had a large postvoid residual and placed a urinary catheter. In March of this year she underwent coronary angioplasty with placement of 3 stents. Longstanding history of coronary disease with coronary bypass x3 in 1989, PCI in 1999, coronary angiogram in 2010 showing a patent proximal LAD stent, occluded proximal diagonal 1, occluded proximal circumflex and occluded proximal up to stop marginal 1, occluded proximal dominant right coronary artery with distal collaterals from the left. Also noted occluded left internal mammary artery to left anterior descending, occluded saphenous vein graft to the right posterior descending artery. Patent saphenous vein graft stent in the distal body of the graft that went to the obtuse marginal 1. Currently on dual antiplatelet therapy for recent stenting. Reports no symptoms of exertional dyspnea or angina October 2022 she fell and sustained a pelvic fracture. She did a rehab stay in [place]. For while she was walking with a walker but subsequently is now walking independently. Only using the walker in the few days with her rib fractures Review of Systems Narrative: Patient reports doing well prior to her rib fractures. No other active medical problems. [facility] Medical History (Updated 06/08/23 @ 16:49 by Ed Trammell MD) Urinary retention ?R33.9 - Retention of urine, unspecified (ICD-10) Ribs, multiple fractures ?S22.49XA - Multiple fractures of ribs, unspecified side, initial encounter for closed fracture (ICD-10) Rib pain ?R07.81 - Pleurodynia (ICD-10) Subarachnoid hemorrhage ?I60.9 - Nontraumatic subarachnoid hemorrhage, unspecified (ICD-10) Subdural hematoma, acute ?S06.5XAA - Traumatic subdural hemorrhage with loss of consciousness status unknown, initial encounter (ICD-10) Left acetabular fracture ?S32.402A - Unspecified fracture of left acetabulum, initial encounter for closed fracture (ICD-10) Pelvic ring fracture ?S32.810A - Multiple fractures of pelvis with stable disruption of pelvic ring, initial encounter for closed fracture (ICD-10) Coronary artery disease ?I25.10 - Atherosclerotic heart disease of [place] coronary artery without angina pectoris (ICD-10) Hypertension ?I10 - Essential (primary) hypertension (ICD-10) Osteoarthritis ?M19.90 - Unspecified osteoarthritis, unspecified site (ICD-10) GERD (gastroesophageal reflux disease) ?K21.9 - Gastro-esophageal reflux disease without esophagitis (ICD-10) Acute myocardial infarction ?I21.9 - Acute myocardial infarction, unspecified (ICD-10) Surgical History (Updated 06/08/23 @ 16:50 by Ed Trammell MD) H/O coronary angioplasty ?Z98.61 - Coronary angioplasty status (ICD-10) Tubal ligation status ?Z98.51 - Tubal ligation status (ICD-10) History of hysterectomy ?Z90.710 - Acquired absence of both cervix and uterus (ICD-10) Hx of CABG ?Z95.1 - Presence of aortocoronary bypass graft (ICD-10) Family History Father Coronary artery disease Social History Narrative: She lives with her daughter and 2 adult grand children. She reports this has been going well for her. She does not use a walker or cane with ambulation. She does not smoke. She does not drink alcohol. Code status is DNR. She reports her daughter or 2 sons would be healthcare power of contract attorney What is your current living situation?: I presently have a place to live Problems where you live: no known problems Problems where you live details: none In the past 12 months, utilities in danger of being shut off: no In the past 12 mos, have been you worried that your food would run out before you had money to buy more?: never true In the past 12 mos, the food you bought just didn't last and you didn't have money to buy more?: never true Highest level of school completed/degree received: high school graduate Smoking Status: Never smoker Do you use any of these nicotine containing products: None Second hand tobacco smoke exposure: No How often do you have a drink containing alcohol: never How often do you have six or more drinks on one occasion: Never AUDIT-C Alcohol total score: 0 Non-prescribed substance use: denies use Caffeine: Yes (2 Cups Daily) How often does anyone, including family, friends and others, physically hurt you : never How often does anyone, including family, friends and others, insult or talk down to you: never How often does anyone, including family, friends and others, threaten you with harm: never How often does anyone, including family, friends and others, scream or curse at you: never service: No Meds Home Medications and Allergies Home Medications Medication Instructions Recorded Confirmed Type alendronate 70 mg tablet 70 mg PO Q7D 06/24/22 06/08/23 History aspirin 81 mg capsule 81 mg PO DAILY 06/24/22 06/08/23 History atorvastatin 80 mg tablet 80 mg PO HS 06/24/22 06/08/23 History isosorbide mononitrate 120 mg 120 mg PO DAILY 06/24/22 06/08/23 History tablet,extended release 24 hr metoprolol succinate 25 mg 37.5 mg PO DAILY 06/24/22 06/08/23 History tablet,extended release 24 hr clopidogrel 75 mg tablet 75 mg PO DAILY 11/17/22 06/08/23 History famotidine 20 mg tablet 20 mg PO BID 11/17/22 06/08/23 History multivitamin 1 tab PO QAM 05/14/23 06/08/23 History nitroglycerin 0.4 mg sublingual 0.4 mg sublingual Q5M PRN 05/14/23 06/08/23 History tablet calcium carbonate 500 mg calcium 500 mg PO BID 06/08/23 06/08/23 History (1,250 mg) tablet (Oyster Shell Calcium) cholecalciferol (vitamin D3) 25 25 mcg PO DAILY 06/08/23 06/08/23 History mcg (1,000 unit) capsule lisinopril 10 mg tablet 10 mg PO DAILY 06/08/23 06/08/23 History Allergies Allergy/AdvReac Type Severity Reaction Status Date / Time No Known Drug Allergies Allergy Verified 06/08/23 07:29 Exam Narrative: Exam Narrative: She is alert, pleasant and in no distress. She gives her own history. Eyes normal. Oropharynx normal. No facial asymmetry. Neck is supple without mass or adenopathy. Respirations are clear to auscultation. Cardiovascular: S1, S2, regular rate and rhythm. No murmur gallop or rub. Abdomen: Bowel sounds active. Abdomen is soft without tenderness or mass. She does have tenderness on the right lateral costal margin and there is slight bruising in that posterior lateral right chest for her rib fractures occurred. External genitalia normal. Dejesus catheter draining a clear yellow urine. Extremities without edema. She moves all 4 extremities well. Const: Vital Signs, click to edit/add: Vital Signs - 24 hr 06/08/23 07:31 06/08/23 11:36 06/08/23 14:03 Temperature 98.3 F 97 F L 98.4 F Pulse Rate [Pulse Oximeter] 80 85 85 Respiratory Rate 16 20 16 Blood Pressure [Ri ght Arm] 158/79 H Blood Pressure [Ri ght Upper Arm] 137/75 145/59 H Pulse Oximetry 93 96 93 Oxygen Delivery Me thod Room Air Room Air Room Air 06/08/23 14:03 Temperature Pulse Rate [Pulse Oximeter] Respiratory Rate Blood Pressure [Ri ght Arm] Blood Pressure [Ri ght Upper Arm] Pulse Oximetry 93 Oxygen Delivery Me thod Room Air Documenting provider has reviewed patient's vital signs: yes Hospitalist - H&P: Result Labs Labs: Short CBC 06/08/23 Range/Units 08:50 WBC 11.20 H (4.50-11.00) K/uL Hgb 11.9 L (12.0-16.0) gm/dL Hct 37.5 (33.0-51.0) % Plt Count 274 (140-440) K/uL BMP 06/08/23 08:50 Sodium 135 Potassium 4.4 Chloride 99 Carbon Dioxide 29 BUN 12 Creatinine 0.6 Glucose 113 Calcium 9.4 Liver Function 06/08/23 Range/Units 08:50 Total Bilirubin 1.5 (0.1-1.5) mg/dL AST 33 (12-35) U/L ALT 19 (4-35) U/L Alkaline Phosphatase 98 (40-150) U/L Albumin 4.2 (3.3-5.0) g/dL Urine 06/08/23 Range/Units 09:25 Urine Color Yellow (Yellow) Urine Appearance Clear (Clear) Urine pH 7.5 (5.0-8.5) Ur Specific [place] 1.010 (1.000-1.030) Urine Protein Negative (Negative) Urine Glucose (UA) Negative (Negative) Imaging CT scan - abdomen: Radiologist's impression: INDICATION: ABD PAIN. CONSTIPATION TECHNIQUE: CT abdomen and pelvis without contrast COMPARISON: None. FINDINGS: Kidney/ureters: Kidneys are normal in caliber. No kidney or ureteral stones. Severely distended urinary bladder without wall thickening. Mild left greater than right hydronephrosis likely related to distended bladder. Liver/gallbladder/bile ducts: The liver is normal in size, shape and attenuation. Status post cholecystectomy. No biliary dilatation. Spleen/pancreas/adrenal glands: The spleen, adrenal glands and pancreas are within normal limits. GI tract: No evidence of bowel obstruction. Large volume fecal retention throughout the colon and rectum. Probable fecal impaction with rectal stool burden measuring up to 4.7 x 5.2 cm with associated rectal wall thickening. There is mild surrounding perirectal inflammation raising concerns for developing stercoral colitis. Scattered colonic diverticulosis without evidence of diverticulitis. Abdominal wall/omentum/peritoneum: No free air or significant free fluid. No mass or inflammation. Lymph nodes: No lymphadenopathy. Vasculature: Normal aorta of normal caliber severe aortoiliac atherosclerosis. Pelvis: Status post hysterectomy. Lower chest: Mild right basilar opacity favors atelectasis over developing consolidation. Right lower lobe 4 mm partially calcified nodule which favors probable granuloma. Bones: Subacute to chronic appearing left inferior pubic ramus, left anterior acetabular rim, and left pubic symphysis fractures. Age-indeterminate bilateral sacral insufficiency fractures. Moderate to advanced multilevel degenerative spondylosis. Chronic bilateral L5 pars defects. IMPRESSION: 1. Large volume fecal retention throughout the colon and rectum. Probable fecal impaction with rectal stool burden measuring up to 4.7 x 5.2 cm with associated rectal wall thickening. There is mild surrounding perirectal inflammation raising concerns for developing stercoral colitis. Consider fecal disimpaction. 2. Severely distended urinary bladder without wall thickening. Mild left greater than right hydronephrosis likely related to distended bladder. Consider Dejesus catheter decompression. 3. Age-indeterminate bilateral sacral insufficiency fractures and multiple subacute to chronic appearing left-sided pelvic fractures. 4. Mild right basilar opacity favors atelectasis over developing consolidation. Assessment and Plan Assessment and plan (1) Constipation: Problem comment: Likely due to opioid pain medicine for rib fractures. She is declining any more opioids. She had manual disimpaction in the emergency department. Will continue with oral laxatives tonight. Status: Acute (2) Ribs, multiple fractures: Problem comment: Managed with acetaminophen and ice Status: Acute (3) Urinary retention: Problem comment: Likely due to constipation. Will leave catheter in overnight and discontinue it in the morning to see if she can spontaneously void on her own Status: Acute Plan Patient is admitted to the hospital for management of constipation, urinary retention, rib pain, immobility. She will need aggressive laxative treatment to complete a full clean out of her colon and I would recommend short-term use of laxatives at home to get her return to a normal bowel function. Uncertain if the urinary retention is acute or chronic. Will DC Dejesus in the morning and then assess her ability to spontaneously void. If still having urinary retention will likely need prolonged period of indwelling catheter. We discussed management of rib fractures at this point she is only interested in acetaminophen. NSAIDs are relatively contraindicated due to do of antiplatelet therapy. She would refuse opiates due to side effects, especially constipation. Will assess with therapy her ability to manage independently in the home. At this point likely that she will return home with her daughter and family as she has a good supportive environment. Total time spent is 60 minutes, 40 minutes in coordination of care discussing with patient and daughter ongoing evaluation management of constipation and urinary retention
[2023-06-08 19:00] VITALS: BP 122/71; PULSE 84; RESP 16; TEMP 36.7; O2SAT 94
--- NOTE | 2023-06-08 19:45 | PC.NURSE ---
End of Shift: Patient arrived to the floor about 1403, alert and oriented. Patient 1 assist, walker, gb. Patient vitally stable, lungs clear, BS WNL, IV SL. Patient denies abdominal, reports only rib pain. Patient martinez, intact and patent emptied 650cc. Patient has 1 xsmall mucous like bowel movement.
[2023-06-08] MEDS: ATORVASTATIN CALCIUM 40 MG TABLET 80 MG PO (20:51)
[2023-06-08] MEDS: SODIUM CHLORIDE 0.9 % (FLUSH) 10 ML SYRINGE 5 ML IVF (20:52)
[2023-06-08] MEDS: FAMOTIDINE 20 MG TABLET PO (20:52)
[2023-06-09 01:30] VITALS: BP 118/52; PULSE 69; RESP 14; TEMP 36.7; O2SAT 95
[2023-06-09 03:00] VITALS: RESP 16
[2023-06-09 06:00] VITALS: RESP 16
[2023-06-09 07:00] VITALS: BP 137/70; PULSE 69; RESP 20; TEMP 36.9; O2SAT 94
--- NOTE | 2023-06-09 07:36 | PC.NURSE ---
Pt alert and oriented x3. Afebrile. Pt denies pain, chest pain, SOB, and N/V. Pt is up A1 with walker and gait belt. Pt is tolerating a regular diet, voiding. Pt martinez catheter is draining and patent. Pt slept throughout most of night.?
[2023-06-09] MEDS: polyethylene glycoL 3350 17 GM PACK PO (08:13)
[2023-06-09] MEDS: CLOPIDOGREL 75 MG TABLET PO (08:14)
[2023-06-09] MEDS: lisinopriL 10 MG TABLET PO (08:14)
[2023-06-09] MEDS: ISOSORBIDE MONONITRATE ER 30 MG TAB 120 MG PO (08:14)
[2023-06-09] MEDS: METOPROLOL SUCCINATE (XL) 25 MG TAB 37.5 MG PO (08:15)
[2023-06-09] MEDS: FAMOTIDINE 20 MG TABLET PO (08:15)
[2023-06-09] MEDS: MULTIVITAMIN/MINERALS 1 TABLET 1 TAB PO (08:15)
[2023-06-09] MEDS: SENNOSIDES 1 TAB TABLET 2 TAB PO (08:15)
[2023-06-09] MEDS: ASPIRIN 81 MG TABLET EC PO (08:15)
--- NOTE | 2023-06-09 09:41 | P.DS_ITS ---
DS: Providers Provider Date of admission: 06/08/23 13:50 Primary care physician: Carmina Enriquez PA-C Admitting Clinician: Kenia Clark MD Attending Physician on discharge: Kenia Clark MD DS: Diagnosis Discharge Diagnosis (1) Constipation: Status: Acute Problem details: Likely due to opioid pain medicine for rib fractures. She is declining any more opioids. She had manual disimpaction in the emergency department. Will continue with oral laxatives tonight. (2) Ribs, multiple fractures: Status: Acute Problem details: Managed with acetaminophen and ice (3) Urinary retention: Status: Acute Problem details: Likely due to constipation. Will leave catheter in overnight and discontinue it in the morning to see if she can spontaneously void on her own DS: Summary Time Spent with Patient Time attestation: Total time spent providing and/or coordinating discharge services: Exam Const: Vital Signs, click to edit/add: Vital Signs - 24 hr 06/08/23 11:36 06/08/23 14:03 06/08/23 14:03 Temperature 97 F L 98.4 F Pulse Rate [Pulse Oximeter] 85 85 Respiratory Rate 20 16 Blood Pressure [Ri ght Arm] 158/79 H Blood Pressure [Ri ght Upper Arm] 145/59 H Pulse Oximetry 96 93 93 Oxygen Delivery Me thod Room Air Room Air Room Air 06/08/23 19:00 06/09/23 01:30 06/09/23 01:30 Temperature 98.1 F 98.1 F Pulse Rate [Pulse Oximeter] 84 69 69 Respiratory Rate 16 14 14 Blood Pressure [Ri ght Arm] 122/71 118/52 L Blood Pressure [Ri ght Upper Arm] Pulse Oximetry 94 95 Oxygen Delivery Me thod Room Air Room Air 06/09/23 01:30 06/09/23 03:00 06/09/23 06:00 Temperature Pulse Rate [Pulse Oximeter] Respiratory Rate 14 16 16 Blood Pressure [Ri ght Arm] Blood Pressure [Ri ght Upper Arm] Pulse Oximetry Oxygen Delivery Me thod 06/09/23 07:00 06/09/23 07:00 Temperature 98.4 F Pulse Rate [Pulse Oximeter] 69 69 Respiratory Rate 20 20 Blood Pressure [Ri ght Arm] 137/70 Blood Pressure [Ri ght Upper Arm] Pulse Oximetry 94 Oxygen Delivery Me thod Room Air DS: Data Data Completed and Pending Labs on day of discharge: Labs from last 24 hours 06/08/23 06/08/23 09:25 08:50 WBC 11.20 H RBC 3.89 L Hgb 11.9 L Hct 37.5 MCV 96 MCH 31 MCHC 32 RDW Coeff of Ian 14.4 Plt Count 274 Neut % (Auto) 70.0 Lymph % (Auto) 16.5 L [place] % (Auto) 10.4 Eos % (Auto) 1.8 Baso % (Auto) 0.4 Neut # (Auto) 7.80 H Lymph # (Auto) 1.80 [place] # (Auto) 1.20 H Eos # (Auto) 0.20 Baso # (Auto) 0.00 Abs Immat Gran (auto) 0.10 Imm/Tot Granulo (auto) 0.9 Sodium 135 Potassium 4.4 Chloride 99 Carbon Dioxide 29 BUN 12 Creatinine 0.6 Estimated Creat Clear 32.17 Estimated GFR 89 Glucose 113 Calcium 9.4 Total Bilirubin 1.5 AST 33 ALT 19 Alkaline Phosphatase 98 Total Protein 7.7 Albumin 4.2 Urine Color Yellow Urine Appearance Clear Urine pH 7.5 Ur Specific [place] 1.010 Urine Protein Negative Urine Glucose (UA) Negative Urine Ketones Negative Urine Blood Negative Urine Nitrite Negative Urine Bilirubin Negative Urine Urobilinogen 0.2 Ur Leukocyte Esterase 1+ A Urine RBC 0-2 Urine WBC 0-2 Ur Squamous Epith Cells Few Amorphous Sediment Many A Urine Bacteria None Discharge Plan Discharge Disposition: Home, Self-Care Date of Admission: 06/08/23 13:50 Attending Provider on Discharge: Kenia Clark Primary Care Provider: Carmina Enriquez Condition: Improved Anticipated Discharge Date/Time: 06/09/23 09:38 Discharge Medications: New sennosides [Senna Lax] 8.6 mg Tablet 8.6 mg PO BID Qty: 14 0RF Continued nitroglycerin 0.4 mg tablet, sublingual 0.4 mg sublingual Q5M PRN Rx Instructions: do not exceed 3 doses per episode multivitamin Tablet 1 tab PO QAM acetaminophen-codeine 300-30 mg tablet 1 tab PO TID PRN (Reason: pain) Qty: 20 0RF atorvastatin 80 mg tablet 80 mg PO HS alendronate 70 mg tablet 70 mg PO Q7D isosorbide mononitrate 120 mg tablet extended release 24 hr 120 mg PO DAILY metoprolol succinate 25 mg tablet extended release 24 hr 37.5 mg PO DAILY aspirin 81 mg capsule 81 mg PO DAILY clopidogrel 75 mg tablet 75 mg PO DAILY famotidine 20 mg tablet 20 mg PO BID calcium carbonate [Oyster Shell Calcium] 500 mg calcium (1,250 mg) tablet 500 mg PO BID cholecalciferol (vitamin D3) 25 mcg (1,000 unit) capsule 25 mcg PO DAILY lisinopril 10 mg tablet 10 mg PO DAILY Discharge Orders: Discharge Order (Routine); Ordered 06/09/23 Ordered By: Kenia Clark Additional Instructions: Take SENNA 1-2 times/day for the next week to keep your bowel moving (I sent this to [employer]). I would also eat 1-2 prunes/day. This will help with constipation. Activity Level: Activity as Tolerated Discharge Diet: Regular Follow Up Appointments: Carmina Enriquez, WILFRID [Primary Care Provider] - (5-7 days for hospital discharge f/u) Forms: [facility] Info Instructions
[2023-06-09 09:47] VITALS: RESP 20; TEMP 36.9
--- NOTE | 2023-06-09 10:49 | PM.DS1 ---
DS: Providers Provider Date Seen: 06/09/23 Date of admission: 06/08/23 13:50 Primary care physician: Carmina Enriquez PA-C Admitting Clinician: Kenia Clark MD Attending Physician on discharge: Kenia Clark MD Date of Discharge: 06/09/23 DS: Diagnosis Discharge Diagnosis (1) Urinary retention: Status: Acute Problem details: - secondary to constipation, patient was able to void spontaneously after removal of catheter on hospital day 1 (2) Constipation: Status: Acute Problem details: - most likely iatrogenic from opiates - had manual disimpaction in the ED - was able to continue to stool on her own and felt significantly better on hospital day 2 (3) Ribs, multiple fractures: Status: Acute DS: Summary Hospital Course Hospital Course: Poly is a delightful 82-year-old female, who was admitted to the hospital on 06/08 for acute constipation, presumably iatrogenic. Patient had recently had some rib fractures following a mechanical fall at home, treated with Tylenol #3. Her constipation require digital disimpaction in the ER, and continued oral laxatives. She was also noted to have urinary retention, and Dejesus catheter was placed on admission. On hospital day 1, patient was having normal bowel movements and eating well. Catheter was removed and she was able to urinate spontaneously. She felt as if she was back to baseline and was requesting discharge home. Status at Discharge Functional status at discharge: independent ambulation Overall status at discharge: patient is back to baseline Time Spent with Patient Time attestation: Total time spent providing and/or coordinating discharge services: Time spent: Less than 30 minutes Exam Narrative: Exam Narrative: GEN: Alert and oriented, sitting comfortably in bedside chair and eating breakfast HEENT: EOMIs bilaterally, no scleral icterus CV: RRR, No concerning murmurs R: LCTA bilaterally without concerning wheezing, mild discomfort when taking deep breaths 2/2 recent rib fractures Ab: Soft and nontender Ext: wwp, no concerning edema Skin: No concerning skin lesions or rashes on exposed skin Neuro: Nonfocal Psych: Appropriate Const: Vital Signs, click to edit/add: Vital Signs - 24 hr 06/08/23 11:36 06/08/23 14:03 06/08/23 14:03 Temperature 97 F L 98.4 F Pulse Rate [Pulse Oximeter] 85 85 Respiratory Rate 20 16 Blood Pressure [Ri ght Arm] 158/79 H Blood Pressure [Ri ght Upper Arm] 145/59 H Pulse Oximetry 96 93 93 Oxygen Delivery Me thod Room Air Room Air Room Air 06/08/23 19:00 06/09/23 01:30 06/09/23 01:30 Temperature 98.1 F 98.1 F Pulse Rate [Pulse Oximeter] 84 69 69 Respiratory Rate 16 14 14 Blood Pressure [Ri ght Arm] 122/71 118/52 L Blood Pressure [Ri ght Upper Arm] Pulse Oximetry 94 95 Oxygen Delivery Me thod Room Air Room Air 06/09/23 01:30 06/09/23 03:00 06/09/23 06:00 Temperature Pulse Rate [Pulse Oximeter] Respiratory Rate 14 16 16 Blood Pressure [Ri ght Arm] Blood Pressure [Ri ght Upper Arm] Pulse Oximetry Oxygen Delivery Me thod 06/09/23 07:00 06/09/23 07:00 06/09/23 09:47 Temperature 98.4 F 98.4 F Pulse Rate [Pulse Oximeter] 69 69 Respiratory Rate 20 20 20 Blood Pressure [Ri ght Arm] 137/70 Blood Pressure [Ri ght Upper Arm] Pulse Oximetry 94 Oxygen Delivery Me thod Room Air Discharge Plan Discharge Disposition: Home, Self-Care Date of Admission: 06/08/23 13:50 Attending Provider on Discharge: Kenia Clark Primary Care Provider: Carmina Enriquez Condition: Improved Anticipated Discharge Date/Time: 06/09/23 09:38 Discharge Medications: New sennosides [Senna Lax] 8.6 mg Tablet 8.6 mg PO BID Qty: 14 0RF Continued nitroglycerin 0.4 mg tablet, sublingual 0.4 mg sublingual Q5M PRN Rx Instructions: do not exceed 3 doses per episode multivitamin Tablet 1 tab PO QAM acetaminophen-codeine 300-30 mg tablet 1 tab PO TID PRN (Reason: pain) Qty: 20 0RF atorvastatin 80 mg tablet 80 mg PO HS alendronate 70 mg tablet 70 mg PO Q7D isosorbide mononitrate 120 mg tablet extended release 24 hr 120 mg PO DAILY metoprolol succinate 25 mg tablet extended release 24 hr 37.5 mg PO DAILY aspirin 81 mg capsule 81 mg PO DAILY clopidogrel 75 mg tablet 75 mg PO DAILY famotidine 20 mg tablet 20 mg PO BID calcium carbonate [Oyster Shell Calcium] 500 mg calcium (1,250 mg) tablet 500 mg PO BID cholecalciferol (vitamin D3) 25 mcg (1,000 unit) capsule 25 mcg PO DAILY lisinopril 10 mg tablet 10 mg PO DAILY Discharge Orders: Discharge Order (Routine); Ordered 06/09/23 Ordered By: Kenia Clark Patient Education: Senna (By mouth) (Sen, Senna-lax), Constipation (DC), Rib Fracture (GEN) Additional Instructions: Take SENNA 1-2 times/day for the next week to keep your bowel moving (I sent this to [employer]). I would also eat 1-2 prunes/day. This will help with constipation. Activity Level: Activity as Tolerated Discharge Diet: Regular Follow Up Appointments: Carmina Enriquez PA-C [Primary Care Provider] - 06/14/23 10:10 am ([facility] [place] for hospital discharge f/u.) Forms: [facility] Info Instructions
--- NOTE | 2023-06-09 10:51 | PC.NURSE ---
Discharge: Patient pleasant and cooperative. Patient vitally stable, lungs clear, BS WNL, IV removed, catheter intact. Patient denies abdominal pain. Patient urinating and had 1 moderate loose/soft stool. Patient happy about successful BM's. Patient tolerating regular diet. Patient signed belongings sheet and discharge form. Patient had no further questions regarding discharge. Patient left the floor by wheelchair to home at 1049.
== END 2023-06-09 10:49 | disposition home or self-care (01) ==
LOC: ED 12:46 → MEDSURG 15:13
PROVIDERS: Admitting Provider Family Medicine; Emergency Provider Student in an Organized Health Care Education/Training Program; PCP Physician Assistant Medical; Visit Provider Family Medicine
DX: K59.00 Constipation, unspecified (principal); R33.9 Retention of urine, unspecified; N13.30 Unspecified hydronephrosis; F11.90 Opioid use, unspecified, uncomplicated; R10.9 Unspecified abdominal pain; S22.49XA Multiple fractures of ribs, unspecified side, initial encounter for closed fracture; W19.XXXA Unspecified fall, initial encounter; Z79.82 Long term (current) use of aspirin; Z79.01 Long term (current) use of anticoagulants; I10 Essential (primary) hypertension; I25.10 Atherosclerotic heart disease of native coronary artery without angina pectoris; Z98.51 Tubal ligation status; Z90.710 Acquired absence of both cervix and uterus; Z95.1 Presence of aortocoronary bypass graft; Z86.79 Personal history of other diseases of the circulatory system; Z66 Do not resuscitate
CPT/HCPCS: 36415; 51702; 74176; 80053; 81001; 85025; 99283; 99284; A9153; A9270; G0378

== ENCOUNTER 2024-03-16 11:01 | Emergency (ER) | payer MEDICARE, SELFPAY ==
[2024-03-16 11:13] VITALS: PULSE 70; RESP 18; TEMP 36.3; O2SAT 97; BMI 20.8
--- NOTE | 2024-03-16 11:38 | CT_ITS ---
Patient: CAROLYNN DAVIES Facility:?[facility] Patient ID:?[id number] Site Patient ID:?[id number]. Site :?[id number] Study:?CT-Chest PE 95CC ISOVUE 370-03/16/2024 12:48:28 PM Ordering Physician:?DR. ZELAYA Final Report: INDICATION: Hemoptysis. COMPARISON: None available. TECHNIQUE: CT pulmonary angiography with 95 cc of Isovue 370 intravenous contrast. Please note that all CT scans at this facility use dose modulation, iterative reconstruction, and/or weight-based dosing when appropriate to reduce radiation dose to as low as reasonably achievable. FINDINGS: Pulmonary Arterial Vasculature: Opacification of the pulmonary arterial tree is adequate. No intraluminal pulmonary arterial filling defect is identified to indicate a pulmonary embolism. Visualized Lower Neck: No lower cervical adenopathy. Mediastinum: Thoracic aorta and pulmonary trunk are normal in caliber. CABG. Multi-vessel severe atherosclerotic coronary artery calcifications. Cardiomegaly. No flattening of the interventricular septum or leftward bowing to indicate right heart strain. Trachea and esophagus are normal in appearance. There is no mediastinal lymphadenopathy. Lungs and Pleura: Superior segment left lower lobe focal consolidation present in association with subsegmental bronchial wall thickening and clustered nodular opacities consistent with nonspecific small airways disease. Proximal 2nd order branch posterior segment left lower lobe subsegmental bronchial endoluminal opacities consistent with mucous plugging. There are similar findings in the proximal superior subsegmental airways. Increased lung volumes consistent with chronic obstructive airways disease. Bilateral benign calcified granulomas. Pleural-based bibasilar band opacities consistent with nonspecific fibrosis. Bilateral lower lobe dependent hypoventilatory changes. No significant pleural effusion. No pneumothorax. Skeleton: No significant osseous findings. Chronic fracture deformities of right posterior ribs 8-10. Thoracic soft tissues: Unremarkable. No axillary adenopathy. Visualized Upper Abdomen: Nonspecific reflux of intravenous contrast material into the intrahepatic inferior vena cava and hepatic veins which can be seen with power injector use. Differential diagnostic considerations include increased right heart pressures. IMPRESSION: 1. No evidence of pulmonary embolism. 2. Superior segment left lower lobe patchy consolidation and findings consistent with nonspecific small airways disease. Recommend clinical correlation as to cooperative evidence of pneumonia. Consider short interval follow-up following empiric treatment in 6-12 weeks as clinically appropriate. 3. 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 Please note that all CT scans at this facility use dose modulation, iterative reconstruction, and/or weight-based dosing when appropriate to reduce radiation dose to as low as reasonably achievable. Dictated by Chetan Hilliard MD @ 03/16/2024 1:16:25 PM Signed by:?Chetan Hilliard MD @03/16/2024 1:16:25 PM (Electronic Signature)
--- NOTE | 2024-03-16 11:43 | ED_ITS ---
HPI - General Adult General Date Seen: 03/16/24 Chief complaint: Cough Stated complaint: Coughing blood Time Seen by Provider: 03/16/24 11:17 Source: patient Mode of arrival: ambulatory Limitations: no limitations History of Present Illness HPI narrative: Patient is an 83-year-old female with a history of DVTs presenting to the emergency department for blood-tinged sputum. She states she has been having a cough for the past week but noticed yesterday while she was coughing she had a large amount of blood in her sputum. Today she has been coughing and has been more red streaks in her blood. States she does not feel any chest pain or shortness of breath and just concerned about the blood. Denies lightheadedness, dizziness, weakness, numbness, vision changes, pain, headache. States previously she has had blood clots in her legs in was on a short term of Coumadin for it but currently not on any blood thinners. Is not aware of any sick contacts. No other concerns noted at this time. Related Data Home Medications Medication Instructions Recorded Confirmed alendronate 70 mg tablet 70 mg PO Q7D 06/24/22 06/08/23 aspirin 81 mg capsule 81 mg PO DAILY 06/24/22 06/08/23 atorvastatin 80 mg tablet 80 mg PO HS 06/24/22 06/08/23 isosorbide mononitrate 120 mg 120 mg PO DAILY 06/24/22 06/08/23 tablet,extended release 24 hr metoprolol succinate 25 mg 37.5 mg PO DAILY 06/24/22 06/08/23 tablet,extended release 24 hr clopidogrel 75 mg tablet 75 mg PO DAILY 11/17/22 06/08/23 famotidine 20 mg tablet 20 mg PO BID 11/17/22 06/08/23 multivitamin 1 tab PO QAM 05/14/23 06/08/23 nitroglycerin 0.4 mg sublingual 0.4 mg sublingual Q5M PRN 05/14/23 06/08/23 tablet calcium carbonate (Oyster Shell 500 mg PO BID 06/08/23 06/08/23 Calcium) cholecalciferol (vitamin D3) 25 25 mcg PO DAILY 06/08/23 06/08/23 mcg (1,000 unit) capsule lisinopril 10 mg tablet 10 mg PO DAILY 06/08/23 06/08/23 Previous Rx's Medication Instructions Recorded acetaminophen 300 mg-codeine 30 mg 1 tab PO TID PRN pain #20 tabs 06/03/23 tablet sennosides 8.6 mg tablet (Senna 8.6 mg PO BID #14 tabs 06/09/23 Lax) amoxicillin 875 mg-potassium 1 tab PO BID #10 tabs 03/16/24 clavulanate 125 mg tablet azithromycin 250 mg tablet See Rx Instructions PO .COMPLEX #6 03/16/24 (Zithromax) tabs Allergies Allergy/AdvReac Type Severity Reaction Status Date / Time No Known Drug Allergies Allergy Verified 03/16/24 14:24 Review of Systems Status of ROS: Reports: 10 or more systems reviewed and unremarkable except as noted in History and below PFSH [facility] Medical History Urinary retention ?R33.9 - Retention of urine, unspecified (ICD-10) Ribs, multiple fractures ?S22.49XA - Multiple fractures of ribs, unspecified side, initial encounter for closed fracture (ICD-10) Rib pain ?R07.81 - Pleurodynia (ICD-10) Subarachnoid hemorrhage ?I60.9 - Nontraumatic subarachnoid hemorrhage, unspecified (ICD-10) Subdural hematoma, acute ?S06.5XAA - Traumatic subdural hemorrhage with loss of consciousness status unknown, initial encounter (ICD-10) Left acetabular fracture ?S32.402A - Unspecified fracture of left acetabulum, initial encounter for closed fracture (ICD-10) Pelvic ring fracture ?S32.810A - Multiple fractures of pelvis with stable disruption of pelvic ring, initial encounter for closed fracture (ICD-10) Coronary artery disease ?I25.10 - Atherosclerotic heart disease of [place] coronary artery without angina pectoris (ICD-10) Hypertension ?I10 - Essential (primary) hypertension (ICD-10) Osteoarthritis ?M19.90 - Unspecified osteoarthritis, unspecified site (ICD-10) GERD (gastroesophageal reflux disease) ?K21.9 - Gastro-esophageal reflux disease without esophagitis (ICD-10) Acute myocardial infarction ?I21.9 - Acute myocardial infarction, unspecified (ICD-10) Surgical History H/O coronary angioplasty ?Z98.61 - Coronary angioplasty status (ICD-10) Tubal ligation status ?Z98.51 - Tubal ligation status (ICD-10) History of hysterectomy ?Z90.710 - Acquired absence of both cervix and uterus (ICD-10) Hx of CABG ?Z95.1 - Presence of aortocoronary bypass graft (ICD-10) Family History Father Coronary artery disease Social History Narrative: She lives with her daughter and 2 adult grand children. She reports this has been going well for her. She does not use a walker or cane with ambulation. She does not smoke. She does not drink alcohol. Code status is DNR. She reports her daughter or 2 sons would be healthcare power of skin [employer] [place]onder What is your current living situation?: I presently have a place to live Problems where you live: no known problems Problems where you live details: none In the past 12 months, utilities in danger of being shut off: no In past 12 months, lack of transportation kept you from medical appts, meetings, work, or getting things needed for daily living: no In the past 12 mos, have been you worried that your food would run out before you had money to buy more?: never true In the past 12 mos, the food you bought just didn't last and you didn't have money to buy more?: never true Highest level of school completed/degree received: high school graduate Smoking Status: Never smoker Do you use any of these nicotine containing products: None Second hand tobacco smoke exposure: No How often do you have a drink containing alcohol: never How often do you have six or more drinks on one occasion: Never AUDIT-C Alcohol total score: 0 Non-prescribed substance use: denies use Caffeine: Yes (2 Cups Daily) How often does anyone, including family, friends and others, physically hurt you : never How often does anyone, including family, friends and others, insult or talk down to you: never How often does anyone, including family, friends and others, threaten you with harm: never How often does anyone, including family, friends and others, scream or curse at you: never service: No Exam Narrative: Exam Narrative: Const: Well-nourished, Well-developed, in no distress Eyes: PERRL, no conjunctival injection, and symmetrical lids HENT: Atraumatic external nose and ears. Moist mucous membranes. Neck: Symmetric, trachea midline, No thyromegaly. CVS: RRR, No murmurs or gallops. Peripheral pulses 2+ and equal in all extremities RESP: Unlabored respiratory effort. Clear to auscultation bilaterally. GI: Nontender/Nondistended, No rebound or guarding. MSK:Extremities w/o deformity, Normal Active ROM Skin: Warm, Dry. No rashes or lesions. Neuro: Normal Muscle tone, No focal neurological deficits. Psych: Awake, Alert, & Oriented x3. Appropriate mood and affect. Const: Vital Signs, click to edit/add: Vital Signs - 24 hr 03/16/24 11:13 Temperature 97.3 F L Pulse Rate [Pulse Oximeter] 70 Respiratory Rate 18 Pulse Oximetry 97 Oxygen Delivery Me thod Room Air Course Vital Signs Vital signs: Initial Vital Signs Temperature 97.3 F L 03/16/24 11:13 Temperature Source Temporal Artery Scan 03/16/24 11:13 Pulse Rate 70 03/16/24 11:13 Pulse Rhythm Irregular 03/16/24 11:13 Respiratory Rate 18 03/16/24 11:13 Blood Pressure Position Supine 03/16/24 11:13 Pulse Oximetry 97 03/16/24 11:13 Oxygen Delivery Method Room Air 03/16/24 11:13 Vital Signs Temperature 97.3 F L 03/16/24 11:13 Pulse Rate 70 03/16/24 11:13 Respiratory Rate 18 03/16/24 11:13 Pulse Oximetry 97 03/16/24 11:13 Oxygen Delivery Method Room Air 03/16/24 11:13 Temperature 97.3 F L 03/16/24 11:13 Pulse Rate 70 03/16/24 11:13 Respiratory Rate 18 03/16/24 11:13 Pulse Oximetry 97 03/16/24 11:13 Oxygen Delivery Method Room Air 03/16/24 11:13 Medical Decision Making MDM Narrative Medical decision making narrative: Patient is a 83-year-old female who concern for blood in his sputum. It is also she has had a viral the for the past week it is blood tinged could just be from all the coughing but with a history of blood clots we will do a CTA of her chest to rule PE. This also look for any signs of pneumonia. While she does not have any current chest pain she is an abdomen and they can have a to symptoms for ACS so a troponin and EKG were also ordered. Due to also ordered CBC, BMP, COVID/flu/RSV. Patient's lab work all returned showing no concerning abnormalities. COVID/flu/RSV was negative. Coags within normal limits. CT was done which shows a possible left lower lobe patchy consolidation could be a pneumonia but is not certain. No obvious signs of her is causing hemoptysis. EKG shows no concerning abnormalities. The CT techs note the patient had a couple episodes of hemoptysis with a small amount of blood while doing the CT scan. Considering the patient is otherwise doing well is having no other symptoms other than this hemoptysis and she states has been improving I do think she is safe for discharge. I will treat her as pneumonia and started on antibiotics by did give her strict return precautions to return to emergency department for any worsening symptoms including but not limited to chest pain, shortness of breath, fevers, weakness. She is agreeable to this plan. Considering her medical history I will start her on Augmentin and azithromycin. Lab Data Labs: Lab Results 03/16/24 03/16/24 03/16/24 Range/Units 11:38 11:39 11:55 WBC 8.28 (4.50-11.00) K/uL RBC 4.04 (4.00-5.20) m/uL Hgb 12.7 (12.0-16.0) gm/dL Hct 39.4 (33.0-51.0) % MCV 98 (80-100) fL MCH 31 (26-34) pg MCHC 32 (32-36) gm/dL RDW Coeff of Ian 13.7 (11.5-15.5) % Plt Count 232 (140-440) K/uL Neut % (Auto) 61.6 (42.0-72.0) % Lymph % (Auto) 26.0 (20-44) % [place] % (Auto) 8.8 (0.0-11.0) % Eos % (Auto) 3.1 (0.0-7.0) % Baso % (Auto) 0.4 (0.0-3.0) % Neut # (Auto) 5.10 (1.7-7.0) K/uL Lymph # (Auto) 2.15 (0.90-2.90) K/uL [place] # (Auto) 0.70 (0.00-0.90) K/UL Eos # (Auto) 0.26 (0.00-0.50) K/uL Baso # (Auto) 0.03 (0.00-0.30) K/uL Abs Immat Gran (auto) 0.01 (0.00-0.30) K/uL Imm/Tot Granulo (auto) 0.1 % INR 0.96 (0.91-1.10) APTT 31 (23-33) Seconds Sodium 141 (135-149) mmol/L Potassium 3.8 (3.6-5.1) mmol/L Chloride 111 (96-114) mmol/L Carbon Dioxide 28 (20-32) mmol/L Anion Gap 2 L (7-15) mEq/L BUN 13 (7-30) mg/dL Creatinine 0.6 (0.5-1.5) mg/dL Estimated Creat Clear 31.60 Estimated GFR 88 ml/min Glucose 83 (60-115) mg/dL Calcium 9.6 (8.4-10.6) mg/dL SARS-CoV-2 (PCR) Negative SARS-CoV-2 (Negative) Influenza Type A (PCR) Negative PCR FLU A (Negative) Influenza Type B (PCR) Negative PCR FLU B (Negative) RSV (PCR) Negative PCR RSV (Negative) Lab Acknowledgement POC Creatinine 0.8 (0.6-1.3) mg/dl POC Troponin I 0.01 (0.01-0.04) ng/ml 03/16/24 Range/Units 12:56 WBC (4.50-11.00) K/uL RBC (4.00-5.20) m/uL Hgb (12.0-16.0) gm/dL Hct (33.0-51.0) % MCV (80-100) fL MCH (26-34) pg MCHC (32-36) gm/dL RDW Coeff of Ian (11.5-15.5) % Plt Count (140-440) K/uL Neut % (Auto) (42.0-72.0) % Lymph % (Auto) (20-44) % [place] % (Auto) (0.0-11.0) % Eos % (Auto) (0.0-7.0) % Baso % (Auto) (0.0-3.0) % Neut # (Auto) (1.7-7.0) K/uL Lymph # (Auto) (0.90-2.90) K/uL [place] # (Auto) (0.00-0.90) K/UL Eos # (Auto) (0.00-0.50) K/uL Baso # (Auto) (0.00-0.30) K/uL Abs Immat Gran (auto) (0.00-0.30) K/uL Imm/Tot Granulo (auto) % INR (0.91-1.10) APTT (23-33) Seconds Sodium (135-149) mmol/L Potassium (3.6-5.1) mmol/L Chloride (96-114) mmol/L Carbon Dioxide (20-32) mmol/L Anion Gap (7-15) mEq/L BUN (7-30) mg/dL Creatinine (0.5-1.5) mg/dL Estimated Creat Clear Estimated GFR ml/min Glucose (60-115) mg/dL Calcium (8.4-10.6) mg/dL SARS-CoV-2 (PCR) (Negative) Influenza Type A (PCR) (Negative) Influenza Type B (PCR) (Negative) RSV (PCR) (Negative) Lab Acknowledgement Test Added POC Creatinine (0.6-1.3) mg/dl POC Troponin I (0.01-0.04) ng/ml Imaging Data CTA chest: Attestation: I have reviewed the pertinent imaging results. Radiologist's impression: 1. No evidence of pulmonary embolism. 2. Superior segment left lower lobe patchy consolidation and findings consistent with nonspecific small airways disease. Recommend clinical correlation as to cooperative evidence of pneumonia. Consider short interval follow-up following empiric treatment in 6-12 weeks as clinically appropriate. 3. 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 Please note that all CT scans at this facility use dose modulation, iterative reconstruction, and/or weight-based dosing when appropriate to reduce radiation dose to as low as reasonably achievable. Dictated by Chetan Hilliard MD @ 03/16/2024 1:16:25 PM ECG Data Attestation: I personally reviewed and interpreted this ECG as follows: Prior ECG tracings: available for review Interpretation: Normal sinus rhythm with a rate of 77 beats per minute, frequent PVCs, normal axis, no ST or T-wave abnormalities, right bundle-branch block, normal OR interval, appears similar to previous EKGs on file. Discharge Plan Discharge Clinical Impression: Pneumonia Qualifiers: Pneumonia type: due to unspecified organism Laterality: unspecified laterality Lung location: unspecified part of lung Qualified Code(s): J18.9 - Pneumonia, unspecified organism Patient Disposition: Home, Self-Care Condition: Stable Instructions: Coughing Up Blood (Hemoptysis) (ED), Community Acquired Pneumonia (ED) Additional Instructions: Take the antibiotics as directed. Return to emergency department for worsening blood in your sputum, chest pain, shortness of breath, weakness, or any other new or worsening symptoms. Follow-up with your primary care provider next few days if symptoms are not improving. Activity Level: No Restrictions Discharge Diet: Regular Prescriptions: New amoxicillin-pot clavulanate 875-125 mg tablet 1 tab PO BID Qty: 10 0RF azithromycin [Zithromax] 250 mg tablet See Rx Instructions PO .COMPLEX Qty: 6 0RF Rx Instructions: For 250 mg dose pack: take 500 mg today (day 1), then 250 mg for 4 days (days 2-5) No Action nitroglycerin 0.4 mg tablet, sublingual 0.4 mg sublingual Q5M PRN Rx Instructions: do not exceed 3 doses per episode multivitamin Tablet 1 tab PO QAM acetaminophen-codeine 300-30 mg tablet 1 tab PO TID PRN (Reason: pain) Qty: 20 0RF atorvastatin 80 mg tablet 80 mg PO HS alendronate 70 mg tablet 70 mg PO Q7D isosorbide mononitrate 120 mg tablet extended release 24 hr 120 mg PO DAILY metoprolol succinate 25 mg tablet extended release 24 hr 37.5 mg PO DAILY aspirin 81 mg capsule 81 mg PO DAILY clopidogrel 75 mg tablet 75 mg PO DAILY famotidine 20 mg tablet 20 mg PO BID calcium carbonate [Oyster Shell Calcium] 500 mg calcium (1,250 mg) tablet 500 mg PO BID cholecalciferol (vitamin D3) 25 mcg (1,000 unit) capsule 25 mcg PO DAILY lisinopril 10 mg tablet 10 mg PO DAILY sennosides [Senna Lax] 8.6 mg Tablet 8.6 mg PO BID Qty: 14 0RF Follow Up/Referrals: Carmina Enriquez, PASridhar [Primary Care Provider] - Stand Alone Forms: [facility] Info Instructions
--- OUTSIDE RECORDS SUMMARY | 2024-03-16 12:05 | XMS_ITS | Data Portability ---
Author Name Unknown Address [address] [place] [id number] Phone [phone] Organization 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 Salgado is an 82-year-old female who was initially evaluated at [facility] on November 17, 2022, for evaluation after a fall down 4 stairs with positive loss of consciousness. Head CT scan demonstrated a left frontal and falcine/tentorial subdural hematoma. Hemorrhage was stable on repeat imaging. It was recommended that the patient continue to hold her prior to admission aspirin and Plavix that she is on for cardiac stents until a 1-month followup with a repeat head CT scan. Since we last saw Mrs. Salgado, she has been recovering well. She denies having any headaches. No neurological complaints. Her neurological exam today is stable. Her head CT scan demonstrates resolution of the previously seen acute subdural hematomas. There is no evidence of acute hemorrhage. She does have a small residual left-sided subdural hygroma. This does not cause significant mass effect. No midline shift. I discussed with Mrs. Salgado and her family today that given that she is doing well clinically and her head CT scan today is stable/improved, no additional imaging or followup appointments are needed in our office. I did discuss if the patient develops any neurological concerns or has any additional fall/trauma, to present to the emergency department. I also discussed with them the risks given her age and history of fall being on blood thinning medication. Given that she has a stable exam and no acute intracranial hemorrhage, she may restart this, but I encouraged her to have a conversation with her primary care provider and her neurosurgery spine physician to discuss the necessity of restarting this medication as well as the risks versus benefits. [email or web address] Not available 12/24/2022 09:47:51 Plan of Treatment Reminders Order Date Submit Date Provider Last Modified By Organization Details Last Modified Time Details Appointments None record ed. Lab None record ed. Referral None record ed. Procedures None record ed. Surgeries None record ed. Imaging None record ed. Medication Orders None record ed. Patient TargetsNo targets recorded. Patient InstructionsNo instructions recorded. Reason for Referral None Reported. Results Created Date Observation Date Name Description Value Unit Range Abnormal Flag LastModifiedBy Organization Detail LastModifiedTime 12/23/19 23 12/23/2022 CT, brain , w/o contr ast EXAM: CT BRAIN wo CONTRA ST LOCATI ON: [facility] est DATE/T [place]: 023 1:06 PM INDICA TION: Traum subdr hem w/o loss of consci ousnes s. COMPAR MARV: [address] TECHNI QUE: Routin e CT Head withou t IV contra st. Multip lanar reform ats. Dose reduct ion techni ques were used. FINDIN GS: INTRAC RANIAL CONTEN TS: No intrac ranial hemorr tisha, extraa xial collec tion, or mass effect . Comple te resolu tion since prior head CT of previo usly identi fied hyperd ense subara chnoid hemorr tisha right pariet al level, and of hyperd ense left tentor ial cerebe lli subdur al hemorr tisha extend ing to the plating engineer ior interh emisph malena level. No new or progre ssive hemorr tisha otherw ise noted. No CT eviden ce of acute infarc t. Mild presum ed chroni c small vessel ischem ic change s. Mild genera lized volume loss. No hydroc ephalu s. Dimini shed size of extra- axial CSF attenu ation/ fluid attenu ation overly ing left fronta l lobe as before series 2 image 15 series 6 image 14 measur ing up to 5.5 mm. Corpus callos um is normal . Positi on of the cerebe llar tonsil s is satisf actory . Partia lly empty sella morpho logy. VISUAL IZED ORBITS /SINUS ES/MAS TOIDS: Prior bilate ral catara ct surger y. Visual ized portio ns of the orbits are otherw ise unrema rkable . No parana peg sinus mucosa l diseas e. No middle ear or mastoi d effusi on. BONES/ SOFT TISSUE S: No fractu re of the calvar ium or skull base. Degene rative change s bilate ral TMJs left more promin ent than right. Minera lizati on overal l is satisf actory . No swelli ng of the facial or scalp soft tissue s. IMPRES ZAN: 1. Since 2021, tempor al evolut ion and resolu tion of previo usly identi fied hyperd ense hemorr tisha involv ing right pariet al subara chnoid level, and subdur al hemorr tisha at the left tentor ium cerebe lli and plating engineer ior interh emisph malena fissur e . 2. No new or progre ssive hemorr tisha 3. Dimini shed size of extra- axial fluid attenu ation/ CSF attenu ation overly ing left fronta l lobe. 4. No midlin e shift or eviden ce for acute/ evolvi ng infarc tion. 5. No other differ ences. This report was electr onical ly interp reted by: DR. ROSENDO BENNETT M.D. [email or web address] [facility] [address] [address], [place], [address], 12/23/2022 17:20:35 Result Notes Documentation Provider Name and Address Organization Details Recorded Time Ct, Brain, W/o Contrast : EXAM: CT BRAIN wo CONTRAST LOCATION: [facility] DATE/TIME: 12/23/2022 1:06 PM INDICATION: Traum subdr hem w/o loss of consciousness. COMPARISON: 11/18/[address] TECHNIQUE: Routine CT Head without IV contrast. Multiplanar reformats. Dose reduction techniques were used. FINDINGS: INTRACRANIAL CONTENTS: No intracranial hemorrhage, extraaxial collection, or mass effect. Complete resolution since prior head CT of previously identified hyperdense subarachnoid hemorrhage right parietal level, and of hyperdense left tentorial cerebelli subdural hemorrhage extending to the posterior interhemispheric level. No new or progressive hemorrhage otherwise noted. No CT evidence of acute infarct. Mild presumed chronic small vessel ischemic changes. Mild generalized volume loss. No hydrocephalus. Diminished size of extra-axial CSF attenuation/fluid attenuation overlying left frontal lobe as before series 2 image 15 series 6 image 14 measuring up to 5.5 mm. Corpus callosum is normal. Position of the cerebellar tonsils is satisfactory. Partially empty sella morphology. VISUALIZED ORBITS/SINUSES/MASTOIDS: Prior bilateral cataract surgery. Visualized portions of the orbits are otherwise unremarkable. No paranasal sinus mucosal disease. No middle ear or mastoid effusion. BONES/SOFT TISSUES: No fracture of the calvarium or skull base. Degenerative changes bilateral TMJs left more prominent than right. Mineralization overall is satisfactory. No swelling of the facial or scalp soft tissues. IMPRESSION: 1. Since 11/18/2022, temporal evolution and resolution of previously identified hyperdense hemorrhage involving right parietal subarachnoid level, and subdural hemorrhage at the left tentorium cerebelli and posterior interhemispheric fissure . 2. No new or progressive hemorrhage 3. Diminished size of extra-axial fluid attenuation/CSF attenuation overlying left frontal lobe. 4. No midline shift or evidence for acute/evolving infarction. 5. No other differences. This report was electronically interpreted by: TAMIKA Munoz M.D. - [facility] 12/23/2022 17:20:35 Problems Name Status Onset Date Resolution Date Notes Provider Name and Address Organization Details Recorded Time Subdural hematoma Active 3 TAMIKA Holm - [facility] 12/24/2022 09:47:21 Problem Notes None recorded. Procedures Surgical History None recorded. Imaging Results Imaging Date Name Status LastModified by Organiz ation Details LastModified Time 12/23/2022 CT, brain, w/o contrast completed [email or web address] [facility] [place] [address] [facility] [address], [place], [address], 12/23/2022 17:20:35 Procedure Notes None recorded. Medical Equipment None Reported. Medications Name Sig Start Date Stop Date Status Note LastModified by Organization Details LastModified Time atorvastatin 80 mg tablet active Not Available Not Available Not Available lisinopril 20 mg tablet active Not Available Not Available No t Available alendronate 70 mg tablet active Not Available Not Available No t Available clopidogrel 75 mg tablet active Not Available Not Available No t Available isosorbide mononitrate ER 120 mg tablet,extende d release 24 hr active Not Available Not Available Not Available famotidine 20 mg tablet TAKE 1 TABLET BY MOUTH IN THE MORNING AND 1 TABLET BY MOUTH IN THE EVENING active Not Available Not Available No t Available omeprazole 20 mg capsule,delaye d release active Not Available Not Available No t Available metoprolol succinate ER 25 mg tablet,extende d release 24 hr TAKE 1 TABLET BY MOUTH EVERY DAY IN THE MORNING active Not Available Not Available No t Available Vitals None Recorded Social History None recorded. Functional Status None recorded. Mental Status None recorded. Family History Nothing Reported. Medical History No medical history recorded. Gynecological HistoryNo gynecological history recorded. Obstetrics History GPAL:G 0 P 0 0 0 0 Past Encounters Encounter ID Performer Location Encounter Start Date Encounter Closed Date Diagnosis/Indication Diagnosis SNOMED-CT Code [id number] Nereyda Hansen [place] Office [id number] [facility], [address] [place] [address] 12/23/2022 14:00:22 12/23/2022 16:34:48 Health Concerns Section Related Observation LastModified by Organization Detai ls LastModified Time None Recorded Concern Status LastModified by Organization Details LastModified Time None Recorded Advance Directives Directive None Recorded Payers Encounter Date Sequence Insurance Name Policy Number Policy Perkins Covered Member ID Perkins Member ID Guarantor Name 12/23/2022 1 [employer] - DOS ON OR AFTER 19 (MEDICARE REPLACEMENT/ ADVANTAGE - PPO) [id number] 1 Poly Salgado [id number] Poly Salgado Notes Date Note Type Note Provider Name and Address Organization Details Recorded Time 12/23/2022 text/html HPI Notes: Mrs. Salgado is an 82-year-old female who was evaluated on November 19, 2022, for evaluation after a fall down approximately 4 stairs with positive loss of consciousness. The patient was initially evaluated at [facility] and found to have a left frontal and falcine/tentorial subdural hematoma. Repeat head CT scan was stable. It was recommended that the patient hold her prior to admission aspirin as well as Plavix that she was prescribed due to cardiac stents until her 1-month followup appointment with a repeat head CT scan. The patient returns to the clinic today with this updated study. In the interim, she indicates that she has overall been doing very well. She denies having headaches. She denies having dizziness/lighthead edness. She denies any visual changes. Mrs. Salgado has not had any additional falls/trauma since we last evaluated her. She continues to note some left lower extremity pain due to pelvic fractures that were sustained. She notes that she has been doing exercises/therapy. If she does too much of this activity, she has increased pain, but the next day she feels that her pain reduces and that the therapy overall has been helpful. Nereyda avery DC - [facility] 12/24/2022 09:48:02 OBGyn Episode No OBEpisode recorded.
--- OUTSIDE RECORDS SUMMARY | 2024-03-16 12:05 | XMS_ITS | Clinical Summary ---
Author Name Unknown Organization [facility] Address [place], [place] [address] Care Team Providers Care Die Hardener Name Role Phone Carmina Enriquez Primary Care Provider Allergies No known active allergies Medications Medication Sig Dispensed Refills Start Date End Date Status cholecalciferol (VITAMIN D3) 1,000 unit capsuleIndications:p revention of vitamin D deficiency Take 1,000 Units by mouth once daily. Active multivitamin (MVI) tabletIndications:vi tamin deficiency prevention Take 1 tablet by mouth once daily. Active Garlic tabletIndications:pr eventative health care Take 1 tablet by mouth. Takes along with a pepper pill 0 06/24/2020 Active aspirin (ECOTRIN) 81 mg enteric coated tablet Take 81 mg by mouth once daily. Active calcium carbonate ([id number] ORAL) Take 1 Tablet by mouth two times daily. Active Senna 8.6 mg tablet Take 8.6 mg by mouth two times daily. 06/09/2023 Active alendronate (FOSAMAX) 70 mg tabletIndications:Os teopenia of multiple sites Take on empty stomach with full glass of water. Do not lie down for 1 hr.TAKE 1 TABLET BY MOUTH ONCE A WEEK IN THE MORNING. TAKE ON AN EMPTY STOMACH WITH A FULL GLASS OF WATER. DO NOT LIKE DOWN FOR 1 HOUR AFTER TAKING 13 Tablet 3 08/31/2023 Active atorvastatin (LIPITOR) 80 mg tabletIndications:Hy perlipidemia, unspecified hyperlipidemia type Take 1 Tablet (80 mg) by mouth once daily in the evening. 90 Tablet 3 08/31/2023 Active clopidogreL (Plavix) 75 mg tabletIndications:NS ALEJANDRINA (non-ST elevation myocardial infarction) (HC),S/P drug eluting coronary stent placement Take 1 Tablet (75 mg) by mouth once daily. Take once daily for 1 year without interruption 90 Tablet 3 08/31/2023 Active famotidine (PEPCID) 20 mg tabletIndications:ga stroesophageal reflux disease Take 1 Tablet (20 mg) by mouth two times daily. 180 Tablet 3 08/31/2023 Active isosorbide mononitrate SR (IMDUR) 120 mg Sustained-Release tabletIndications:pr evention of anginal pain in coronary artery disease Take 1 Tablet (120 mg) by mouth once daily. 90 Tablet 3 08/31/2023 Active lisinopriL (PRINIVIL; ZESTRIL) 10 mg tabletIndications:NS ALEJANDRINA (non-ST elevation myocardial infarction) (HC),ASCVD (arteriosclerotic cardiovascular disease),HTN (hypertension) Take 1 Tablet (10 mg) by mouth once daily. 90 Tablet 3 08/31/2023 Active metoprolol succinate (TOPROL XL) 25 mg Sustained-Release tabletIndications:NS ALEJANDRINA (non-ST elevation myocardial infarction) (HC),HTN (hypertension),PAC (premature atrial contraction) Take 1.5 Tablets (37.5 mg) by mouth once daily. 135 Tablet 3 08/31/2023 Active nitroglycerin (NITROSTAT) 0.4 mg sublingual tabletIndications: CVD (arteriosclerotic cardiovascular disease) Place 1 Tablet (0.4 mg) under the tongue every 5 minutes if needed for Chest Pain. 20 Tablet 08/31/2023 Active omeprazole 20 mg tabletIndications:Ga stroesophageal reflux disease, unspecified whether esophagitis present Take 1 Tablet (20 mg) by mouth once daily before a meal. 90 Tablet 1 01/05/2024 Active Active Problems Problem Noted Date Diagnosed Date NSTEMI (non-ST elevation myocardial infarction) 03/29/2023 History of subdural hematoma 03/29/2023 Diarrhea 03/29/2023 SDH (subdural hematoma) 11/18/2022 Multiple fractures of pelvis 11/18/2022 HTN (hypertension) 09/29/2022 NSTEMI (non-ST elevation myocardial infarction) 07/10/2022 Superficial thrombophlebitis of right leg 2020 E. coli sepsis 05/24/2019 Cholecystitis 05/23/2019 Gram negative sepsis 05/23/2019 Cholecystitis, acute 05/23/2019 Osteoporosis 05/28/2015 Overview: Discussed. No medication. Will work on balance and exercise. ACP (advance care planning) 05/22/2014 Overview: Does not want cpr Pelvic floor weakness 05/22/2014 Hx of NSTEMI 05/10/2011 Peripheral Vascular Disease 05/10/2011 Dyslipidemia 05/05/2011 Overview: Last lipid panel on 05/06/2011 --> TChol: 134 Tri HDL: 39 LDL: 75. but on Lipitor ASCVD (arteriosclerotic cardiovascular disease) 06/03/2010 Overview: Meds - B-ricco, isosorbide, aspirin, statin -prior CABG x3V in 1989 -subsequent PCI in 1999? - Patient has echocardiogram on 05/05/2011 which demonstrated an EF of 60-65% and demonstrated normal LV size, mildly increased wall thickness, normal global systolic function, Mild concentric LVH. 05/11/11 cor angio FINAL DIAGNOSES 1. Stable coronary artery disease: a. Patent proximal left anterior descending stent. b. Occluded proximal diagonal 1. c. Occluded proximal circumflex and occluded proximal obtuse marginal 1. d. Occluded proximal dominant right coronary artery with distal collaterals from left. 2. Occluded left internal mammary artery to left anterior descending. 3. Occluded saphenous vein graft to right posterior descending artery. 4. Patent saphenous vein graft stent in the distal body of the graft that went to obtuse marginal 1. Routine general medical exam ination at a health care facility 06/03/2010 Overview: Colonoscopy 2002, normal ok for 10 years. Osteoarthritis of hand 06/03/2010 Esophageal reflux 06/03/2010 Resolved Problems Problem Noted Date Diagnosed Date Resolved Date Anticoagulation monitoring, INR range 2-3 03/19/2021 06/18/2021 Acute postoperative respiratory failure 05/23/2019 07/10/2022 Unstable angina 05/10/2011 05/10/2011 Unstable angina 05/05/2011 05/10/2011 Overview: -with dynamic ST depression -Level 2 emergent Encounters Date Type Department Care Team Description 03/16/2024 Nurse Triage [facility] [address] [place] [address] Carmina Enriquez PA Cough (With blood) 01/05/2024 Refill [facility] [address] [place] [id number] Carmina Enriquez PA Refill Request (OMEPRAZOLE ) from Last 3 Months Immunizations Name Administration Dates Next Due Amb Influenza, Inact (High-d ose Quadrivalent) (Flu Clinic Only) 09/16/2022 COVID-19 vaccine (Yessy-J& J) PF, MDV 09/16/2022,09/17/2021 COVID-19 vaccine (Star.me-Bio NTech 30mcg/0.3mL) 12YO+ BIVALENT PF, MDV 09/16/2022 COVID-19 vaccine (Pfizer-Bio NTech 30mcg/0.3mL) PF, MDV 09/17/2021,02/12/2021,01/22/2021 DTaP 04/25/2013,10/23/2012,07/13/2007 Influenza, Inactivated AIIV4 (Age 65+ Years) Preserv Free 08/31/2023,09/16/2022,11/05/2021,2019 Pneumococcal Poly,23-Valent (Pneumovax) 04/19/2009 Pneumococcal conj 13-Valent (Prevnar 13) 05/28/2015 Td (Age >=7 Years) 07/13/2007 Tdap 04/25/2013 Tuberculin Skin Test, Unspecified 11/24/2022 Zoster (Zostavax-ZVL, live) 07/11/2013 Family History Medical History Relation Name Comments Heart Disease Father Cancer Mother Cancer-breast No Family History Relation Name Status Comments Father Mother Social History Tobacco Use Types Packs/Day Years Used Date Smoking Tobacco: Never Smokeless Tobacco: Never Tobacco Cessation:Counseling Given: Yes Alcohol Use Standard Drinks/Week Comments No 0 (1 standard drink = 0.6 oz pur e alcohol) PHQ-2 Answer Date Recorded PHQ-2 TOTAL SCORE 0 08/31/2023 Social Connections Answer Date Recorded Frequency of Communication with Friends and Fami ly Not on file 07/13/2023 Financial Resource Strain Answer Date R ecorded Difficulty of Paying Living Expenses 3 07/10/2022 Difficulty of Paying Living Expenses Not on file 07/10/2022 Food Insecurity Answer Date Recorded Worried About Running Out of Food in the Last Ye ar 1 07/10/2022 Transportation Needs Answer Date Record ed Lack of Transportation (Medical) 1 07/10/2022 Housing Stability Answer Date Recorded Unable to Pay for Housing in the Last Year 1 07/10/2022 Sex and Gender Information Value Date Recorded Sex Assigned at Not on file Gender Identity Not on file Sexual Orientation Not on file Obstetrics History Last Filed Vital Signs Vital Sign Reading Time Taken Comments Blood Pressure 124/74 08/31/2023 9:26 AM CDT Pulse 65 08/31/2023 9:26 AM CDT Temperature 36.7 ??C (98.1 ??F) 04/01/2023 7:56 AM CD T Respiratory Rate 18 04/22/2023 12:0 0 PM CDT Oxygen Saturation 100% 08/31/2023 9:26 AM CDT Inhaled Oxygen Concentration - - Weight 48.4 kg (106 lb 11.2 oz) 08/31/2023 9:26 AM CDT Height 153 cm (5' 0.25) 08/31/2023 9:26 AM CDT Body Mass Index 20.67 08/31/2023 9:26 AM CDT Plan of Treatment Health Maintenance Due Date Last Done Comments Zoster (shingles) series for age 50+ (2 of 3) 09/05/2013 07/11/2013 Tetanus booster 04/25/2023 04/25/2013, 05/30 (Completed outside of [facility]), 07/13/2007 COVID-19 vaccine series ( season) 2023 09/16/2022, 09/16/2022, 09/17/2021, Additional history exists Influenza for age 65+ 07/30/2024 08/31/2023 , 09/16/2022, 09/16/2022, Additional history exists BMI (ht and wt on same day) for age 18+ 08/31/2024 08/31/2023, 07/10/2022, 06/30/2021, Additional history exists Depression screening for age 12+ 08/31/2024 08/31/2023, 07/02/2023, 06/30/2023, Additional history exists Medicare Wellness for age 65+ 08/31/2024, 07/10/2022, 06/30/2021, Additional history exists Tdap Completed 04/25/2013 Pneumococcal series for age 65+ Completed 5, 04/19/2009 DEXA/DXA scan for age 65+ Completed 2021, 06/25/2020, 05/22/2014, Additional history exists Procedures Procedure Name Priority Date/Time Associated Diagnosis Comments XR DXA BONE DENSITY 2 SITES AXIAL Routine 07/14/2022 8:53 AM CDT Osteopenia of multiple sites from Last 3 Months or Most Recently Relevant to Health Maintenance Results * (ABNORMAL) XR DXA BONE DENSITY 2 SITES AXIAL (07/14/2022 8:53 AM CDT) Anatomical Region Laterality Modality Spine, HIPS, HIPL, HIPR Other Impressions 07/15/2022 4:46 PM CDT Osteoporosis. RECOMMENDATIONS: The National Osteoporosis Foundation recommends pharmacologic treatment for patients with T-scores of -2.5 or less, patients with prior history of fragility fractures, or patients with 10-year probability of greater than 3% at hips or greater than 20% of suffering major osteoporotic fractures. Recommend continued optimization of calcium and vitamin D intake through dietary means and/or supplementation and regular exercise. Continue current Alendronate (Fosamax) medication treatment. Carmina Enriquez PA-C [facility] 07/15/2022 Narrative 07/15/2022 4:46 PM CDT For Patients: Results are automatically released to your [employer] account once available, in compliance with federal regulations. This means that you may see your results before your provider has had a chance to review them. Please allow 2-3 business days for your provider to comment on the results. XR DXA Bone Mineral Density (BMD) EXAM LOCATION: [address] [address] PATIENT NAME: Poly Salgado DATE OF : 1940 EXAM DATE: 07/14/2022 REQUESTING PROVIDER: Carmina Enriquez PA GENDER AT : female HEIGHT: 5' 1.22 (07/10/2022) WEIGHT: ??116 lb 8 oz (07/10/2022) MENOPAUSAL STATUS: Postmenopausal RACE/ETHNICITY: White RISK FACTORS: Height Loss (2 inches or more), History of Fragility Fracture (at a major site), Weight < 127 lbs. and White Race CURRENT MEDICATION FOR BONE LOSS: Alendronate (Fosamax) INDICATION: Follow-up of existing osteopenia COMPARISON DATE(S): 2019 DXA scans are compared to prior studies for a patient only when the two (or more) studies were performed on the same scanner. It is not possible to compare data generated on one scanner to data from another because there are not standards in DXA equipment. This applies even if the two scanners are made by the same electro mechanical solar technician. PROCEDURE: Dual-energy x-ray absorptiometry performed with routine technique. Reporting is completed in the form of a T-score. The T-score represents the standard deviation from peak bone mass based on young healthy adult. A Z-score is used for diagnosis in premenopausal women, and for men under the age of 50. FINDINGS: RESULT LUMBAR SPINE L1 - L3 ??BMD: 0.938 g/cm2 T-Score: - 1.9 Z-Score: + 0.4 Change from prior in 2020: ??Increase 3.1%. RESULTS FEMUR Left femoral neck BMD: 0.687 g/cm2 T-Score: - 2.5 Z-Score: + 0.0 Change from prior in 2020: ??Decrease 1.6%. Right femoral neck BMD: 0.742 g/cm2 T-Score: - 2.1 Z-Score: + 0. Change from prior in 2020: ??Increase 1.4%. Left hip BMD: 0.733 g/cm2 T-Score: - 2.2 Z-Score: + 0.3 Change from prior in 2020: ??Decrease 0.8%. Right hip BMD: 0.715 g/cm2 T-Score: - 2.3 Z-Score: + 0.1 Change from prior in 2020: ??Decrease 3.2%. 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 Expl anation Healthcare Directive 04/13/2023 023 * Partial Code (Latest Code Status on File) Date Activated Date Inactivated Comments 03/29/2023 4:19 PM 04/01/2023 8:28 PM DNR, but okay for short term intubation if felt she may recover Question Answer Comments Cardio Resuscitation: No Chest CompressionsNo De fibrillation/Cardioversion Ventilation: No Restrictions Drug Protocol: No Restrictions * DNR Date Activated Date Inactivated Comments 11/18/2022 7:28 PM 11/24/2022 1:41 PM Question Answer Comments Code Status Discussion: Reviewed Preferences * Full Code Date Activated Date Inactivated Comments 05/22/2019 4:22 PM 05/25/2019 3:45 PM * Full Code Date Activated Date Inactivated Comments 05/18/2011 6:15 AM 05/18/2011 7:49 PM * Full Code Date Activated Date Inactivated Comments 05/10/2011 12:27 AM 05/12/2011 6:59 PM Care Teams Die Hardener Relationship Specialty Start Date End Date Carmina Enriquez PA [address] [place] [address] PCP - General Physician Lead Accountant 07/04/19
[2024-03-16 12:08] LABS: Basophils Absolute Auto 0.03 K/uL (0.00-0.30); Basophils Percent Auto 0.4 % (0.0-3.0); Eosinophils Absolute Auto 0.26 K/uL (0.00-0.50); Eosinophils Percent Auto 3.1 % (0.0-7.0); Hematocrit 39.4 % (33.0-51.0); Hemoglobin* 12.7 gm/dL (12.0-16.0); Immature Granulocytes Abs Auto 0.01 K/uL (0.00-0.30); Immature Granulocytes Pct Auto 0.1 %; Lymphocytes Absolute Auto 2.15 K/uL (0.90-2.90); Mean Corpuscular HGB Conc 32 gm/dL (32-36); Mean Corpuscular Hemoglobin 31 pg (26-34); Mean Corpuscular Volume 98 fL (80-100); Monocytes Percent Auto 8.8 % (0.0-11.0); Neutrophils Percent Auto 61.6 % (42.0-72.0); Platelet Count* 232 K/uL (140-440); RDW Coefficient of Variation % 13.7 % (11.5-15.5); Red Blood Count 4.04 m/uL (4.00-5.20); White Blood Count* 8.28 K/uL (4.50-11.00)
[2024-03-16 12:08] LABS: Creatinine, Point-of-Care* 0.8 mg/dl (0.6-1.3)
[2024-03-16 12:12] LABS: Slide Review Reflex No
[2024-03-16 12:18] LABS: Chloride* 111 mmol/L (96-114); Potassium* 3.8 mmol/L (3.6-5.1); Sodium* 141 mmol/L (135-149)
[2024-03-16 12:21] LABS: Anion Gap 2 mEq/L (7-15); Blood Urea Nitrogen* 13 mg/dL (7-30); Carbon Dioxide* 28 mmol/L (20-32); Creatinine* 0.6 mg/dL (0.5-1.5); Estimated Glomerular Filt Rate 88 ml/min
[2024-03-16 12:22] LABS: Calcium* 9.6 mg/dL (8.4-10.6); Glucose* 83 mg/dL (60-115)
[2024-03-16 12:23] LABS: Troponin, Point-of-Care* 0.01 ng/ml (0.01-0.04)
[2024-03-16 12:31] LABS: PCR FLU A Negative PCR FLU A (Negative); PCR FLU B Negative PCR FLU B (Negative); PCR RSV Negative PCR RSV (Negative); SARS PCR* Negative SARS-CoV-2 (Negative)
[2024-03-16 13:19] LABS: INR 0.96 (0.91-1.10); Prothrombin Time 13.3 Seconds
[2024-03-16 13:20] LABS: Partial Thromboplastin Time* 31 Seconds (23-33)
== END 2024-03-16 14:03 | disposition home or self-care (01) ==
PROVIDERS: Emergency Provider Student in an Organized Health Care Education/Training Program; PCP Physician Assistant Medical
DX: J18.9 Pneumonia, unspecified organism (principal)
CPT/HCPCS: 36415; 71275; 80048; 82565; 84484; 85025; 85610; 85730; 87631; 93005; 99283; 99284; 99285; Q9967